=== PATIENT | female | born 1960 | race Caucasian/White ===

== ENCOUNTER 2017-02-05 07:58 | Inpatient (IN) | payer MEDICARE, MEDICAID ==
[2017-02-05] MEDS: Carbidopa/Levodopa 25-100 MG Tab PO SCH ×2 (13:40→18:24)
[2017-02-05] MEDS: oxyCODONE 5 MG Tab PO SCH ×2 (13:40→20:03)
--- NOTE | 2017-02-05 14:01 | PCM.HP ---
H&P History of Present Illness - General Date of Service: 02/05/17 Admit Problem/Dx: Admission Diagnosis/Problem Admission Diagnosis/Problem Knee joint replacement by other means - History of Present Illness Initial Comments - Free Text/Narative: Patient is a pleasant 56-year-old female status post right total knee revision on 02/02/2017 admitted to the facility for continued wound care occupational and physical therapy at which point she will go back to her own home. Her surgery was uncomplicated and she has no concerns regarding her status at this time. Her pain is well-controlled currently on oxycodone 10 mg roughly 3-4 times a day. Right Knee Pain Score (Numeric/FACES): 10 - Related Data Allergies/Adverse Reactions: Allergies Allergy/AdvReac Type Severity Reaction Status Date / Time gabapentin Allergy Slurred Verified 02/05/17 14:59 Speech Home Medications: Home Meds ALPRAZolam [Alprazolam] 1 mg PO BID PRN 02/05/17 [History] Biotin 5 mg PO DAILY 02/05/17 [History] Carbidopa/Levodopa [Sinemet 25-100 mg Tablet] 2 tab PO TID@08,1130,1630 [History] Celecoxib [CeleBREX] 200 mg PO BID 02/05/17 [History] Cholecalciferol (Vitamin D3) [Vitamin D3] 1,000 units PO DAILY 02/05/17 [History ] ClonazePAM [KlonoPIN] 0.75 mg PO BEDTIME 02/05/17 [History] Docusate Sodium/Sennosides [Senna Plus] 2 tab PO DAILY 02/05/17 [History] Furosemide [Lasix] 40 mg PO MOTUWETHFR@0900 02/05/17 [History] Lactose-Reduced Food/Fiber [Hstwbg-Khzn-Foyh Puree Blend] 1 dose PO TID PRN [History] Mirtazapine [Mirtazapine] 15 mg PO BEDTIME 02/05/17 [History] Multivitamin [Daily William] 1 tab PO DAILY 02/05/17 [History] Omeprazole 40 mg PO DAILY 02/05/17 [History] Rivaroxaban [Xarelto] 20 mg PO WITHDINNER 02/05/17 [History] Sennosides [Senna] 17.2 mg PO BEDTIME 02/05/17 [History] Sertraline [Zoloft] 200 mg PO DAILY 02/05/17 [History] oxyCODONE 5 - 10 mg PO Q2H PRN 02/05/17 [History] Past Medical History HEENT History: Reports: Hard of Hearing, Impaired Vision Respiratory History: Reports: SOB Gastrointestinal History: Reports: GERD Genitourinary History: Reports: Urinary Incontinence Musculoskeletal History: Reports: Arthritis, Back Pain, Chronic Neurological History: Reports: Headaches, Chronic, Parkinson's, TIA Psychiatric History: Reports: Anxiety, Depression, Suicidal Ideation Endocrine/Metabolic History: Reports: Obesity/BMI 30+ Hematologic History: Reports: Anticoagulation Therapy - Infectious Disease History Infectious Disease History: Reports: Chicken Pox, Measles - Past Surgical History Head Surgeries/Procedures: Reports: None HEENT Surgical History: Reports: Adenoidectomy, Oral Surgery, Tonsillectomy Respiratory Surgical History: Reports: None GI Surgical History: Reports: Cholecystectomy, Colonoscopy Female Surgical History: Reports: Breast Biopsy, Hysterectomy Neurological Surgical History: Reports: None Musculoskeletal Surgical History: Reports: Knee Replacement Social & Family History - Family History Family Medical History: Noncontributory - Tobacco Use Smoking Status *Q: Never Smoker Second Hand Smoke Exposure: No - Caffeine Use Caffeine Use: Reports: Coffee - Alcohol Use Days Per Week of Alcohol Use: 0 - Recreational Drug Use Recreational Drug Use: No H&P Review of Systems - Review of Systems: Review Of Systems: See Below General: Reports: No Symptoms HEENT: Reports: No Symptoms Pulmonary: Reports: No Symptoms Cardiovascular: Reports: No Symptoms Gastrointestinal: Reports: No Symptoms Genitourinary: Reports: No Symptoms Musculoskeletal: Reports: Joint Swelling Skin: Reports: No Symptoms Psychiatric: Reports: No Symptoms Neurological: Reports: No Symptoms Exam - Exam Exam: See Below - Vital Signs Vital Signs: Last Vital Signs Temp 99.2 F 02/05/17 11:58 Pulse 86 02/05/17 11:58 Resp 20 02/05/17 11:58 BP 135/68 02/05/17 11:58 Pulse Ox 95 02/05/17 11:58 Weight: 98.883 kg - Exam General: Alert, Oriented, Cooperative HEENT: Conjunctiva Clear, Mucosa Moist & [place] Neck: Supple, Trachea Midline, Full Range of Motion. No: Lymphadenopathy, JVD, Thyromegaly Lungs: Clear to Auscultation, Normal Respiratory Effort Cardiovascular: Regular Rate, Regular Rhythm, Normal S1, Normal S2 GI/Abdominal Exam: Normal Bowel Sounds, Soft, Non-Tender, No Distention Back Exam: Normal Inspection Extremities: Joint Swelling (Right joint swelling with vertical incision anterior knee with intact dressing and dry. No increased warmth or redness locally. Bilateral lower extremity trace edema slightly more on the right than the left but as expected. Negative Homans. Normal capillary refill. Normal sensation and strength.) Skin: Dry, Intact, Incision *Q Meaningful Use (ADM) - VTE *Q VTE Criteria *Q: - Stroke *Q Stroke Criteria *Q: - AMI *Q AMI Criteria *Q: - Problem List (1) S/P total knee arthroplasty SNOMED Code(s): 9011600901510, 4832290378337 ICD Code: Z96.659 - PRESENCE OF UNSPECIFIED ARTIFICIAL KNEE JOINT Status: Acute Current Visit: Yes Onset Date: 02/02/17 Qualifiers: Laterality: right Qualified Code(s): Z96.651 - Presence of right artificial knee joint Problem List Initiated/Reviewed/Updated: Yes Orders Last 24hrs: Active Orders 24 hr Category Date Time Status Admission Status [Patient Status] [ADT] Routine ADT 02/05/17 10:17 Active Height and Weight [RC] .qMon Care 02/05/17 13:13 Active Oxygen Therapy [RC] PRN Care 02/05/17 13:13 Active Vital Signs [RC] PER UNIT ROUTINE Care 02/05/17 13:13 Active OT Evaluation and Treatment [CONS] Routine Cons 02/05/17 10:00 Active PT Evaluation and Treatment [CONS] Routine Cons 02/05/17 10:00 Active Carbidopa/Levodopa [Sinemet 25-100 mg] Med 02/05/17 14:00 Active 2 tab PO TID@0800,1130,1630 oxyCODONE Med 02/05/17 14:00 Active 10 mg PO Q6H Resuscitation Status Routine Resus Stat 02/05/17 13:13 Ordered Medication Orders Carbidopa/Levodopa (Sinemet 25-100 Mg) 2 tab PO TID@0800,1130,1630 [facility] Last Admin: 02/05/17 13:40 Dose: 2 tab Oxycodone HCl (Oxycodone) 10 mg PO Q6H [facility] Last Admin: 02/05/17 13:40 Dose: 10 mg Assessment/Plan Comment:: We will admit for swing bed status for continued physical therapy occupational therapy wound care assessment strengthening and discharge planning. Chronic conditions will be controlled with current home medications and pain control with new Rx of oxycodone to be titrated to minimum dose required postoperatively. Bowel regimen to prevent opioid-induced constipation.
[2017-02-05] MEDS: Rivaroxaban 10 MG Tab PO SCH (18:24)
[2017-02-05] MEDS: Celecoxib 200 MG Cap PO SCH (21:01)
[2017-02-05] MEDS: ClonazePAM 0.5 MG Tab PO SCH (21:01)
[2017-02-05] MEDS: Sennosides 8.6 MG Tab PO SCH (21:02)
[2017-02-05] MEDS: Mirtazapine 15 MG Tab PO SCH (21:02)
[2017-02-06] MEDS: oxyCODONE 5 MG Tab PO SCH ×4 (02:19→20:28)
[2017-02-06] MEDS: Carbidopa/Levodopa 25-100 MG Tab PO SCH ×3 (09:02→16:47)
[2017-02-06] MEDS: Biotin 5 MG Cap PO SCH (09:02)
[2017-02-06] MEDS: Cholecalciferol (Vitamin D3) 1,000 Unit Tab PO SCH (09:02)
[2017-02-06] MEDS: Multivitamin Tab PO SCH (09:02)
[2017-02-06] MEDS: Sertraline 100 MG Tab PO SCH (09:02)
[2017-02-06] MEDS: Celecoxib 200 MG Cap PO SCH ×2 (09:02→20:53)
--- NOTE | 2017-02-06 11:16 | PCM.PN ---
- General Info Date of Service: 02/06/17 Admission Dx/Problem (Free Text): Tells me she is feeling much better today compared to yesterday with regards to moving and getting around. She is working with physical therapy and doing well. She does continue to have the right lower extremity tightness and pain. She is beginning ice therapy to the knee and denies any numbness tingling or decreased strength comparing the right left. She denies any headache neck pain sore throat nausea chest pain or pressure palpitations shortness of breath dyspnea on exertion cough abdominal pain pelvic pain dysuria flank pain constipation or diarrhea. Functional Status: Reports: Pain Controlled, Tolerating Diet, Ambulating, Urinating - Review of Systems Systems Review Comment:: For pertinent positives and negatives please see history of present illness - Patient Data Vitals - Most Recent: Last Vital Signs Vital Signs - 24 hr 02/05/17 02/05/17 02/06/17 11:58 19:52 00:00 Temperature [ 99.2 F 99.7 F 99.2 F Oral] Pulse, 86 Peripheral [ Left Pulse Oximetry] Pulse, 89 85 Peripheral [ Right Pulse Oximetry] Respiratory 20 18 18 Rate Blood Pressure 135/68 125/62 123/75 [Right Arm] O2 Sat by Pulse 95 91 L 92 L Oximetry 02/06/17 02/06/17 04:00 09:15 Temperature [ 99.3 F 98.1 F Oral] Pulse, Peripheral [ Left Pulse Oximetry] Pulse, 83 95 Peripheral [ Right Pulse Oximetry] Respiratory 18 21 H Rate Blood Pressure 125/75 139/80 [Right Arm] O2 Sat by Pulse 92 L 96 Oximetry Weight - Most Recent: 98.883 kg Med Orders - Current: Current Medications Biotin (Meribin) 5 mg PO DAILY [facility] Last Admin: 02/06/17 09:02 Dose: 5 mg Carbidopa/Levodopa (Sinemet 25-100 Mg) 2 tab PO TID@0800,1130,1630 [facility] Last Admin: 02/06/17 09:02 Dose: 2 tab Celecoxib (Celebrex) 200 mg PO BID [facility] Last Admin: 02/06/17 09:02 Dose: 200 mg Cholecalciferol (Vitamin D3) 1,000 units PO DAILY [facility] Last Admin: 02/06/17 09:02 Dose: 1,000 units Clonazepam (Klonopin) 0.75 mg PO BEDTIME [facility] Last Admin: 02/05/17 21:01 Dose: 0.75 mg Furosemide (Lasix) 40 mg PO MOTUWETHFR@0900 [facility] Mirtazapine (Remeron) 15 mg PO BEDTIME [facility] Last Admin: 02/05/17 21:02 Dose: 15 mg Multivitamins/Minerals/Vitamin C (Tab-A-William) 1 tab PO DAILY [facility] Last Admin: 02/06/17 09:02 Dose: 1 tab Oxycodone HCl (Oxycodone) 10 mg PO Q6H [facility] Last Admin: 02/06/17 08:57 Dose: 10 mg Rivaroxaban (Xarelto) 20 mg PO WITHDINNER [facility] Last Admin: 02/05/17 18:24 Dose: 20 mg Senna (Senna) 17.2 mg PO BEDTIME [facility] Last Admin: 02/05/17 21:02 Dose: 17.2 mg Senna/Docusate Sodium (Senna Plus) 2 tab PO DAILY [facility] Last Admin: 02/06/17 09:02 Dose: 2 tab Sertraline HCl (Zoloft) 200 mg PO DAILY [facility] Last Admin: 02/06/17 09:02 Dose: 200 mg - Exam Physical Findings Comments:: General: Alert, Oriented, Cooperative HEENT: Conjunctiva Clear, Mucosa Moist & [place] Neck: Supple, Trachea Midline, Full Range of Motion. No: Lymphadenopathy, JVD Lungs: Clear to Auscultation, Normal Respiratory Effort Cardiovascular: Regular Rate, Regular Rhythm, Normal S1, Normal S2 GI/Abdominal Exam: Normal Bowel Sounds, Soft, Non-Tender, No Distention Back Exam: Normal Inspection Extremities: Joint Swelling (Right joint swelling with vertical incision anterior knee with intact dressing and dry. increased warmth noted to the thigh , knee and calf when compared to the left. Bilateral lower extremity now 1-2+ on the left with tightness to thigh. Trace on the left and no tightness to the thigh. Negative Homans. Normal capillary refill. Normal sensation and strength. ) Skin: Dry, Intact, Incision - Problem List & Annotations (1) S/P total knee arthroplasty SNOMED Code(s): 8023254833579, 2739349749367 Code(s): Z96.659 - PRESENCE OF UNSPECIFIED ARTIFICIAL KNEE JOINT Status: Acute Current Visit: Yes Onset Date: 02/02/17 Qualifiers: Laterality: right Qualified Code(s): Z96.651 - Presence of right artificial knee joint (2) Swelling of right lower extremity SNOMED Code(s): 938266199 Code(s): M79.89 - OTHER SPECIFIED SOFT TISSUE DISORDERS Status: Acute Current Visit: Yes - Problem List Review Problem List Initiated/Reviewed/Updated: Yes - My Orders Last 24 Hours: My Active Orders 02/08/17 09:00 Furosemide [Lasix] 40 mg PO MOTUWETHFR@0900 02/05/17 10:17 Admission Status [Patient Status] [ADT] Routine 02/05/17 13:13 Height and Weight [RC] .qMon Oxygen Therapy [RC] PRN Resuscitation Status Routine 02/05/17 14:00 Carbidopa/Levodopa [Sinemet 25-100 mg] 2 tab PO TID@0800,1130,1630 oxyCODONE 10 mg PO Q6H 02/05/17 18:00 Rivaroxaban [Xarelto] 20 mg PO WITHDINNER Ice Pack [Ice Therapy] [OM.PC] Routine 02/05/17 21:00 Celecoxib [CeleBREX] 200 mg PO BID ClonazePAM [KlonoPIN] 0.75 mg PO BEDTIME Mirtazapine [Remeron] 15 mg PO BEDTIME Sennosides [Senna] 17.2 mg PO BEDTIME 02/06/17 09:00 Biotin [Meribin] 5 mg PO DAILY Cholecalciferol (Vitamin D3) [Vitamin D3] 1,000 units PO DAILY Docusate Sodium/Sennosides [Senna Plus] 2 tab PO DAILY Multivitamins [Tab-A-William] 1 tab PO DAILY Sertraline [Zoloft] 200 mg PO DAILY 02/06/17 11:07 IS (RT) [RT Incentive Spirometry] [RC] Q2HWA 02/06/17 11:09 Vital Signs [RC] Q4H - Assessment Assessment:: Please see above - Plan Plan:: We'll continue to monitor temps every 4 hours vitals, continue to observe wound. Will go ahead and start her on incentive spirometry as well. She is on DVT prophylaxis appropriately status post right knee revision. however with increased warmth and leg swelling i will get a venous duplex to rule out active DVT. continue swing bed status. continued physical therapy occupational therapy wound care assessment strengthening and discharge planning. Chronic conditions will continue to be controlled with current home medications and pain control with new Rx of oxycodone to be titrated to minimum dose required postoperatively. Bowel regimen on board to prevent opioid-induced constipation.
[2017-02-06] MEDS: Rivaroxaban 10 MG Tab PO SCH (18:03)
[2017-02-06] MEDS: ClonazePAM 0.5 MG Tab PO SCH (20:53)
[2017-02-06] MEDS: Sennosides 8.6 MG Tab PO SCH (20:57)
[2017-02-06] MEDS: Mirtazapine 15 MG Tab PO SCH (20:58)
[2017-02-07] MEDS: oxyCODONE 5 MG Tab PO SCH ×4 (01:51→19:41)
[2017-02-07] MEDS: Biotin 5 MG Cap PO SCH (08:42)
[2017-02-07] MEDS: Carbidopa/Levodopa 25-100 MG Tab PO SCH ×3 (08:42→17:47)
[2017-02-07] MEDS: Celecoxib 200 MG Cap PO SCH ×2 (08:42→20:37)
[2017-02-07] MEDS: Multivitamin Tab PO SCH (08:44)
[2017-02-07] MEDS: Cholecalciferol (Vitamin D3) 1,000 Unit Tab PO SCH (08:44)
[2017-02-07] MEDS: Sertraline 100 MG Tab PO SCH (08:45)
--- NOTE | 2017-02-07 12:16 | PCM.SN ---
- Free Text/Narrative Note: Patient remained afebrile. Venous ultrasound of the right lower extremity was negative for DVT.
[2017-02-07] MEDS: Rivaroxaban 10 MG Tab PO SCH (17:50)
[2017-02-07] MEDS: ClonazePAM 0.5 MG Tab PO SCH (20:37)
[2017-02-07] MEDS: Mirtazapine 15 MG Tab PO SCH (20:38)
[2017-02-08] MEDS: oxyCODONE 5 MG Tab PO SCH ×4 (01:53→20:26)
[2017-02-08] MEDS: Carbidopa/Levodopa 25-100 MG Tab PO SCH ×3 (08:39→16:29)
[2017-02-08] MEDS: Celecoxib 200 MG Cap PO SCH ×2 (08:40→20:30)
[2017-02-08] MEDS: Cholecalciferol (Vitamin D3) 1,000 Unit Tab PO SCH (08:41)
[2017-02-08] MEDS: Furosemide 40 MG Tab PO SCH (08:41)
[2017-02-08] MEDS: Biotin 5 MG Cap PO SCH (08:41)
[2017-02-08] MEDS: Multivitamin Tab PO SCH (08:41)
[2017-02-08] MEDS: Sertraline 100 MG Tab PO SCH (08:42)
[2017-02-08] MEDS: Rivaroxaban 10 MG Tab PO SCH (18:17)
[2017-02-08] MEDS: ClonazePAM 0.5 MG Tab PO SCH (20:31)
[2017-02-08] MEDS: Mirtazapine 15 MG Tab PO SCH (20:31)
[2017-02-08] MEDS: Sennosides 8.6 MG Tab PO SCH (20:33)
[2017-02-09] MEDS: oxyCODONE 5 MG Tab PO SCH ×3 (02:23→14:02)
[2017-02-09] MEDS: Carbidopa/Levodopa 25-100 MG Tab PO SCH ×3 (09:12→16:28)
[2017-02-09] MEDS: Furosemide 40 MG Tab PO SCH (09:13)
[2017-02-09] MEDS: Celecoxib 200 MG Cap PO SCH ×2 (09:13→21:25)
[2017-02-09] MEDS: Multivitamin Tab PO SCH (09:14)
[2017-02-09] MEDS: Biotin 5 MG Cap PO SCH (09:14)
[2017-02-09] MEDS: Sertraline 100 MG Tab PO SCH (09:15)
[2017-02-09] MEDS: Cholecalciferol (Vitamin D3) 1,000 Unit Tab PO SCH (09:15)
--- NOTE | 2017-02-09 10:23 | US ---
INDICATION: Pain and increased warmth in leg. Question DVT. DUPLEX ULTRASOUND, RIGHT LOWER EXTREMITY VEINS: Utilizing 2-D real time, duplex Doppler spectral analysis, and color flow imaging, examination of the right lower extremity veins was obtained with difficulty due to patient's condition. Compression was normal. Blood flow was seen, except where the veins were not visualized, such as the peroneal vein and the lower two-thirds of the anterior tibial vein. No evidence of deep venous thrombosis was identified. The patient was unable to cooperate with valvular competence evaluation. IMPRESSION: No evidence of deep venous thrombosis, as visualized. MTDD
--- NOTE | 2017-02-09 10:29 | CR ---
INDICATION: Deformed, pain right leg. RIGHT KNEE: Three images, two frontal and one lateral, of the right knee were obtained 02/08/2017, and compared with 02/04/2017, revealing a TKA which remains in good position and alignment without a definite complicating process identified. Apparent post-surgical changes present on the previous examination , have largely resolved. MTDD
--- NOTE | 2017-02-09 10:30 | CR ---
INDICATION: Deformed, pain right leg. RIGHT FEMUR: Seven images of the right femur in frontal and lateral projections revealed a TKA, which remains in good position and alignment without a definite complicating process identified. No focal bone or joint abnormality was suggested. Bone density appeared to be normal. IMPRESSION: Satisfactory appearance post TKA right femur. MTDD
--- NOTE | 2017-02-09 10:31 | CR ---
INDICATION: Deformed, pain right leg. RIGHT TIBIA AND FIBULA: Frontal and lateral views of the right tibia and fibula were obtained 02/08/2017, and revealed femoral portion of the TKA to be in good position and alignment without a complicating process identified. No definite bone or joint abnormality was identified. MTDD
[2017-02-09] MEDS: Rivaroxaban 10 MG Tab PO SCH (17:07)
[2017-02-09] MEDS: Acetaminophen/oxyCODONE 325-5 MG Tab PO SCH (20:19)
[2017-02-09] MEDS: Sennosides 8.6 MG Tab PO SCH ×2 (21:22→21:26)
[2017-02-09] MEDS: Mirtazapine 15 MG Tab PO SCH (21:23)
[2017-02-09] MEDS: ClonazePAM 0.5 MG Tab PO SCH (21:24)
[2017-02-10] MEDS: Acetaminophen/oxyCODONE 325-5 MG Tab PO SCH ×4 (02:12→20:43)
[2017-02-10] MEDS: Multivitamin Tab PO SCH (08:32)
[2017-02-10] MEDS: Furosemide 40 MG Tab PO SCH (08:32)
[2017-02-10] MEDS: Biotin 5 MG Cap PO SCH (08:32)
[2017-02-10] MEDS: Celecoxib 200 MG Cap PO SCH ×2 (08:32→20:44)
[2017-02-10] MEDS: Cholecalciferol (Vitamin D3) 1,000 Unit Tab PO SCH (08:32)
[2017-02-10] MEDS: Sertraline 100 MG Tab PO SCH (08:32)
[2017-02-10] MEDS: Carbidopa/Levodopa 25-100 MG Tab PO SCH ×3 (08:33→16:45)
[2017-02-10] MEDS: Rivaroxaban 10 MG Tab PO SCH (18:56)
[2017-02-10] MEDS: ClonazePAM 0.5 MG Tab PO SCH (20:44)
[2017-02-10] MEDS: Mirtazapine 15 MG Tab PO SCH (20:45)
[2017-02-10] MEDS: Sennosides 8.6 MG Tab PO SCH (20:47)
[2017-02-11] MEDS: Acetaminophen/oxyCODONE 325-5 MG Tab PO SCH ×4 (02:30→20:46)
[2017-02-11] MEDS: Carbidopa/Levodopa 25-100 MG Tab PO SCH ×3 (07:59→16:32)
[2017-02-11] MEDS: Biotin 5 MG Cap PO SCH (08:00)
[2017-02-11] MEDS: Furosemide 40 MG Tab PO SCH (08:00)
[2017-02-11] MEDS: Celecoxib 200 MG Cap PO SCH ×2 (08:00→20:35)
[2017-02-11] MEDS: Cholecalciferol (Vitamin D3) 1,000 Unit Tab PO SCH (08:00)
[2017-02-11] MEDS: Sertraline 100 MG Tab PO SCH (08:00)
[2017-02-11] MEDS: Multivitamin Tab PO SCH (08:00)
[2017-02-11] MEDS: Rivaroxaban 10 MG Tab PO SCH (17:38)
[2017-02-11] MEDS: Mirtazapine 15 MG Tab PO SCH (20:35)
[2017-02-11] MEDS: Sennosides 8.6 MG Tab PO SCH (20:37)
[2017-02-11] MEDS: ClonazePAM 0.5 MG Tab PO SCH (20:47)
[2017-02-12] MEDS: Acetaminophen/oxyCODONE 325-5 MG Tab PO SCH ×4 (02:08→20:19)
[2017-02-12] MEDS: Carbidopa/Levodopa 25-100 MG Tab PO SCH ×3 (08:16→17:07)
[2017-02-12] MEDS: Celecoxib 200 MG Cap PO SCH ×2 (08:16→20:20)
[2017-02-12] MEDS: Furosemide 40 MG Tab PO SCH (08:16)
[2017-02-12] MEDS: Biotin 5 MG Cap PO SCH (08:17)
[2017-02-12] MEDS: Multivitamin Tab PO SCH (08:17)
[2017-02-12] MEDS: Cholecalciferol (Vitamin D3) 1,000 Unit Tab PO SCH (08:18)
[2017-02-12] MEDS: Sertraline 100 MG Tab PO SCH (08:18)
[2017-02-12] MEDS: Rivaroxaban 10 MG Tab PO SCH (17:07)
[2017-02-12] MEDS: ClonazePAM 0.5 MG Tab PO SCH (20:20)
[2017-02-12] MEDS: Mirtazapine 15 MG Tab PO SCH (20:21)
[2017-02-12] MEDS: Sennosides 8.6 MG Tab PO SCH (20:22)
[2017-02-13] MEDS: Acetaminophen/oxyCODONE 325-5 MG Tab PO SCH ×4 (01:46→19:35)
[2017-02-13] MEDS: Carbidopa/Levodopa 25-100 MG Tab PO SCH ×3 (08:53→18:49)
[2017-02-13] MEDS: Celecoxib 200 MG Cap PO SCH ×2 (08:54→20:00)
[2017-02-13] MEDS: Biotin 5 MG Cap PO SCH (08:55)
[2017-02-13] MEDS: Multivitamin Tab PO SCH (08:56)
[2017-02-13] MEDS: Sertraline 100 MG Tab PO SCH (08:57)
[2017-02-13] MEDS: Cholecalciferol (Vitamin D3) 1,000 Unit Tab PO SCH (08:57)
[2017-02-13] MEDS ORDERED: Aluminum Hydroxide/Magnesium Hydroxide Susp 30 ML Cup PO PRN (12:30)
[2017-02-13] MEDS: Rivaroxaban 10 MG Tab PO SCH (19:28)
[2017-02-13] MEDS: Mirtazapine 15 MG Tab PO SCH (20:00)
[2017-02-13] MEDS: Sennosides 8.6 MG Tab PO SCH (20:03)
[2017-02-13] MEDS: ClonazePAM 0.5 MG Tab PO SCH ×2 (20:11→20:12)
[2017-02-14] MEDS: Acetaminophen/oxyCODONE 325-5 MG Tab PO SCH ×4 (01:57→20:03)
[2017-02-14] MEDS: Carbidopa/Levodopa 25-100 MG Tab PO SCH ×3 (09:02→16:25)
[2017-02-14] MEDS: Multivitamin Tab PO SCH (09:03)
[2017-02-14] MEDS: Celecoxib 200 MG Cap PO SCH ×2 (09:03→20:07)
[2017-02-14] MEDS: Sertraline 100 MG Tab PO SCH (09:04)
[2017-02-14] MEDS: Biotin 5 MG Cap PO SCH (09:04)
[2017-02-14] MEDS: Cholecalciferol (Vitamin D3) 1,000 Unit Tab PO SCH (09:04)
--- NOTE | 2017-02-14 11:53 | PCM.PN ---
- General Info Date of Service: 02/14/17 Subjective Update: Pt still having some tenderness and swelling of the right knee and medial leg. DVT eval prior was negative and comparative xrays of hardware normal. wbc normal but crp elevated. low grade temps have resolved. swelling overall of the leg improved. PT states things are progressing slowly. Functional Status: Reports: Tolerating Diet, Ambulating, Urinating - Review of Systems Systems Review Comment:: see subjective. - Patient Data Vitals - Most Recent: Last Vital Signs Temp 98.2 F 02/14/17 08:00 Pulse 81 02/14/17 08:00 Resp 20 02/14/17 08:00 BP 112/66 02/14/17 08:00 Pulse Ox 96 02/14/17 08:00 Weight - Most Recent: 96.434 kg Lab Results Last 24 Hours: Laboratory Results - last 24 hr 02/13/17 02/13/17 02/13/17 Range/Units 11:47 11:47 11:47 WBC 7.7 (4.5-12.0) X10-3/uL RBC 3.92 (3.23-5.20) x10(6)uL Hgb 11.6 (11.5-15.5) g/dL Hct 34.2 (30.0-51.3) % MCV 87.3 (80-96) fL MCH 29.5 (27.7-33.6) pg MCHC 33.8 (32.2-35.4) g/dL RDW 14.2 (11.5-15.5) % Plt Count 335 (125-369) X10(3)uL MPV 7.6 (7.4-10.4) fL Neut % (Auto) 69.6 (46-82) % Lymph % (Auto) 14.1 (13-37) % [place] % (Auto) 8.5 (4-12) % Eos % (Auto) 7 H (1.0-5.0) % Baso % (Auto) 1 (0-2) % Neut # (Auto) 5.3 (1.6-8.3) # Lymph # (Auto) 1.1 (0.6-5.0) # [place] # (Auto) 0.7 (0.0-1.3) # Eos # (Auto) 0.5 (0.0-0.8) # Baso # (Auto) 0.1 (0.0-0.2) # Sodium 139 (135-145) mmol/L Potassium 4.4 (3.5-5.3) mmol/L Chloride 100 (100-110) mmol/L Carbon Dioxide 28 (21-32) mmol/L BUN 17 (7-18) mg/dL Creatinine 1.1 H (0.55-1.02) mg/dL Est Cr Clr Drug Dosing 48.36 mL/min Estimated GFR (MDRD) 52 L (>60) BUN/Creatinine Ratio 15.5 (9-20) Glucose 109 (80-116) mg/dL Calcium 9.4 (8.6-10.2) mg/dL Total Bilirubin 0.6 (0.1-1.3) mg/dL AST 24 D (5-25) IU/L ALT 11 L D (12-36) U/L Alkaline Phosphatase 125 H (56-112) IU/L C-Reactive Protein 5.9 H* (0.5-0.9) mg/dL Total Protein 7.4 (6.0-8.0) g/dL Albumin 3.1 L (3.5-5.2) g/dL Globulin 4.3 g/dL Albumin/Globulin Ratio 0.7 Med Orders - Current: Current Medications Al Hydroxide/Mg Hydroxide (Mag-Al Susp) 30 ml PO Q2H PRN PRN Reason: Heartburn Last Admin: 02/13/17 13:08 Dose: 30 ml Biotin (Meribin) 5 mg PO DAILY [facility] Last Admin: 02/14/17 09:04 Dose: 5 mg Carbidopa/Levodopa (Sinemet 25-100 Mg) 2 tab PO TID@0800,1130,1630 [facility] Last Admin: 02/14/17 09:02 Dose: 2 tab Celecoxib (Celebrex) 200 mg PO BID [facility] Last Admin: 02/14/17 09:03 Dose: 200 mg Cholecalciferol (Vitamin D3) 1,000 units PO DAILY [facility] Last Admin: 02/14/17 09:04 Dose: 1,000 units Clonazepam (Klonopin) 0.75 mg PO BEDTIME [facility] Last Admin: 02/13/17 20:12 Dose: 0.75 mg Doxycycline Monohydrate (Vibramycin) 100 mg PO BID [facility] Furosemide (Lasix) 40 mg PO MOTUWETHFR@0900 [facility] Last Admin: 02/12/17 08:16 Dose: 40 mg Mirtazapine (Remeron) 15 mg PO BEDTIME [facility] Last Admin: 02/13/17 20:00 Dose: 15 mg Multivitamins/Minerals/Vitamin C (Tab-A-William) 1 tab PO DAILY [facility] Last Admin: 02/14/17 09:03 Dose: 1 tab Oxycodone/Acetaminophen (Percocet 325-5 Mg) 2 tab PO Q6H [facility] Last Admin: 02/14/17 09:00 Dose: 2 tab Rivaroxaban (Xarelto) 20 mg PO WITHDINNER [facility] Last Admin: 02/13/17 19:28 Dose: 20 mg Senna (Senna) 17.2 mg PO BEDTIME [facility] Last Admin: 02/13/17 20:03 Dose: 17.2 mg Senna/Docusate Sodium (Senna Plus) 2 tab PO DAILY [facility] Last Admin: 02/14/17 09:03 Dose: 2 tab Sertraline HCl (Zoloft) 200 mg PO DAILY [facility] Last Admin: 02/14/17 09:04 Dose: 200 mg Discontinued Medications Oxycodone HCl (Oxycodone) 10 mg PO Q6H [facility] Last Admin: 02/09/17 14:02 Dose: 10 mg - Exam Extremities: Other (right knee and leg inspected. increased warmth and swelling of the anterior right knee prepatella bursal, no pain on joint ROM. No drainage from incision. warmth and mild erythema have increased down the medial leg. non tender. ) - Problem List & Annotations (1) Bursitis of lower extremity SNOMED Code(s): 709315292 Code(s): M71.9 - BURSOPATHY, UNSPECIFIED Status: Acute Annotation/Comment :: left prepatellar/and medial lower leg cellulitis. (2) S/P total knee arthroplasty SNOMED Code(s): 5110321560130, 9223039698179 Code(s): Z96.659 - PRESENCE OF UNSPECIFIED ARTIFICIAL KNEE JOINT Status: Acute Onset Date: 02/02/17 Qualifiers: Laterality: right Qualified Code(s): Z96.651 - Presence of right artificial knee joint (3) Swelling of right lower extremity SNOMED Code(s): 574365122 Code(s): M79.89 - OTHER SPECIFIED SOFT TISSUE DISORDERS Status: Acute - Problem List Review Problem List Initiated/Reviewed/Updated: Yes - My Orders Last 24 Hours: My Active Orders 02/13/17 12:30 Alum Hydroxide/Mag Hydroxide [Mag-Al Susp] 30 ml PO Q2H PRN 02/14/17 12:00 Doxycycline [Vibramycin] 100 mg PO BID - Assessment Assessment:: Please see above - Plan Plan:: We'll continue to monitor temps every 4 hours vitals, continue to observe wound. start doxycycline. she has appointment with her orthopedic surgeon tomorrow. family taking her. hold off on PT today.
[2017-02-14] MEDS: Doxycycline 100 MG Tab PO SCH ×2 (12:57→20:16)
[2017-02-14] MEDS: Rivaroxaban 10 MG Tab PO SCH (17:50)
[2017-02-14] MEDS: ClonazePAM 0.5 MG Tab PO SCH (20:04)
[2017-02-14] MEDS: Sennosides 8.6 MG Tab PO SCH (20:08)
[2017-02-14] MEDS: Mirtazapine 15 MG Tab PO SCH (20:15)
[2017-02-15] MEDS: Acetaminophen/oxyCODONE 325-5 MG Tab PO SCH ×3 (01:39→15:07)
[2017-02-15] MEDS: Celecoxib 200 MG Cap PO SCH (08:36)
[2017-02-15] MEDS: Carbidopa/Levodopa 25-100 MG Tab PO SCH ×2 (08:36→11:34)
[2017-02-15] MEDS: Cholecalciferol (Vitamin D3) 1,000 Unit Tab PO SCH (08:38)
[2017-02-15] MEDS: Multivitamin Tab PO SCH (08:38)
[2017-02-15] MEDS: Doxycycline 100 MG Tab PO SCH (08:39)
[2017-02-15] MEDS: Biotin 5 MG Cap PO SCH (08:39)
[2017-02-15] MEDS: Sertraline 100 MG Tab PO SCH (08:39)
[2017-02-15] MEDS: Furosemide 40 MG Tab PO SCH (11:01)
--- NOTE | 2017-02-16 07:54 | PCM.DCSUM1 ---
Discharge Summary - Hospital Course HPI Initial Comments: pt was admitted to swing bed for right knee pt/Ot for rom, strength, ambulation and adls after revision. - Discharge Data Discharge Date: 02/15/17 Discharge Disposition: DC/Tfer to Acute Hospital 02 Condition: Good - Discharge Diagnosis/Problem(s) (1) Post-operative complication SNOMED Code(s): 816238444 ICD Code: T81.9XXA - UNSPECIFIED COMPLICATION OF PROCEDURE, INITIAL ENCOUNTER Status: Acute Priority: High Qualifiers: Surgical complication system/body Area: musculoskeletal system Procedure type: musculoskeletal (2) Bursitis of lower extremity SNOMED Code(s): 775689690 ICD Code: M71.9 - BURSOPATHY, UNSPECIFIED Status: Acute Problem Details: left prepatellar/and medial lower leg cellulitis. (3) S/P total knee arthroplasty SNOMED Code(s): 0815463703741, 3964659003077 ICD Code: Z96.659 - PRESENCE OF UNSPECIFIED ARTIFICIAL KNEE JOINT Status: Acute Onset Date: 02/02/17 Qualifiers: Laterality: right Qualified Code(s): Z96.651 - Presence of right artificial knee joint (4) Swelling of right lower extremity SNOMED Code(s): 560473602 ICD Code: M79.89 - OTHER SPECIFIED SOFT TISSUE DISORDERS Status: Acute - Patient Summary/Data Consults: Consultations 02/05/17 10:00 OT Evaluation and Treatment [CONS] Routine Please Evaluate and Treat. OT Reason for Consult: ADL's This query below is only for informational purposes and is not editable. PT Evaluation and Treatment [CONS] Routine Please Evaluate and Treat. PT Reason for Consult: Ambulation This query below is only for informational purposes and is not editable. - Discharge Plan Home Medications: Home Meds ALPRAZolam [Alprazolam] 1 mg PO BID PRN 02/05/17 [History] Biotin 5 mg PO DAILY 02/05/17 [History] Carbidopa/Levodopa [Sinemet 25-100 mg Tablet] 2 tab PO TID@08,1130,1630 [History] Celecoxib [CeleBREX] 200 mg PO BID 02/05/17 [History] Cholecalciferol (Vitamin D3) [Vitamin D3] 1,000 units PO DAILY 02/05/17 [History ] ClonazePAM [KlonoPIN] 0.75 mg PO BEDTIME 02/05/17 [History] Docusate Sodium/Sennosides [Senna Plus] 2 tab PO DAILY 02/05/17 [History] Furosemide [Lasix] 40 mg PO MOTUWETHFR@0900 02/05/17 [History] Lactose-Reduced Food/Fiber [Qnklzf-Aitt-Wlog Puree Blend] 1 dose PO TID PRN [History] Mirtazapine [Mirtazapine] 15 mg PO BEDTIME 02/05/17 [History] Multivitamin [Daily William] 1 tab PO DAILY 02/05/17 [History] Omeprazole 40 mg PO DAILY 02/05/17 [History] Rivaroxaban [Xarelto] 20 mg PO WITHDINNER 02/05/17 [History] Sennosides [Senna] 17.2 mg PO BEDTIME 02/05/17 [History] Sertraline [Zoloft] 200 mg PO DAILY 02/05/17 [History] oxyCODONE 5 - 10 mg PO Q2H PRN 02/05/17 [History] Patient Handouts: Total Knee Replacement, Care After, Fall Prevention in Hospitals, Adult, Venous Thromboembolism Prevention - Discharge Summary/Plan Comment DC Time >30 min.: No Discharge Summary/Plan Comment: Pt was seen in [place] today by her orthopedic surgeon and diagnosis of patella hardware dislocation diagnosed. Admitted her to [facility] for further management. - General Info Subjective Update: Pt was not seen prior to her appt in [place]. - Patient Data Vitals - Most Recent: Last Vital Signs Temp 99.0 F 02/15/17 08:00 Pulse 87 02/15/17 08:00 Resp 20 02/15/17 08:00 BP 126/72 02/15/17 08:00 Pulse Ox 93 L 02/15/17 08:00 Weight - Most Recent: 96.434 kg Med Orders - Current: Current Medications Discontinued Medications Al Hydroxide/Mg Hydroxide (Mag-Al Susp) 30 ml PO Q2H PRN PRN Reason: Heartburn Last Admin: 02/13/17 13:08 Dose: 30 ml Biotin (Meribin) 5 mg PO DAILY THERESA Last Admin: 02/15/17 08:39 Dose: 5 mg Carbidopa/Levodopa (Sinemet 25-100 Mg) 2 tab PO TID@0800,1130,1630 [facility] Last Admin: 02/15/17 11:34 Dose: 2 tab Celecoxib (Celebrex) 200 mg PO BID [facility] Last Admin: 02/15/17 08:36 Dose: 200 mg Cholecalciferol (Vitamin D3) 1,000 units PO DAILY [facility] Last Admin: 02/15/17 08:38 Dose: 1,000 units Clonazepam (Klonopin) 0.75 mg PO BEDTIME [facility] Last Admin: 02/14/17 20:04 Dose: 0.75 mg Doxycycline Monohydrate (Vibramycin) 100 mg PO BID [facility] Last Admin: 02/15/17 08:39 Dose: 100 mg Furosemide (Lasix) 40 mg PO MOTUWETHFR@0900 [facility] Last Admin: 02/15/17 11:01 Dose: Not Given Mirtazapine (Remeron) 15 mg PO BEDTIME [facility] Last Admin: 02/14/17 20:15 Dose: 15 mg Multivitamins/Minerals/Vitamin C (Tab-A-William) 1 tab PO DAILY [facility] Last Admin: 02/15/17 08:38 Dose: 1 tab Oxycodone HCl (Oxycodone) 10 mg PO Q6H [facility] Last Admin: 02/09/17 14:02 Dose: 10 mg Oxycodone/Acetaminophen (Percocet 325-5 Mg) 2 tab PO Q6H [facility] Last Admin: 02/15/17 15:07 Dose: 2 tab Rivaroxaban (Xarelto) 20 mg PO WITHDINNER [facility] Last Admin: 02/14/17 17:50 Dose: 20 mg Senna (Senna) 17.2 mg PO BEDTIME [facility] Last Admin: 02/14/17 20:08 Dose: 17.2 mg Senna/Docusate Sodium (Senna Plus) 2 tab PO DAILY [facility] Last Admin: 02/15/17 09:10 Dose: 2 tab Sertraline HCl (Zoloft) 200 mg PO DAILY [facility] Last Admin: 02/15/17 08:39 Dose: 200 mg *Q Meaningful Use (DIS) - VTE *Q VTE Criteria *Q: - Stroke *Q Stroke Criteria *Q: - AMI *Q AMI Criteria *Q:
== END 2017-02-15 15:05 | DRG 560 ==
LOC: FB.MS 10:11
PROVIDERS: ADMIT Family Medicine; ATTEND Family Medicine
DX: Z47.1 Aftercare following joint replacement surgery (principal); M96.89 Other intraoperative and postprocedural complications and disorders of the musculoskeletal system; T84.022A Instability of internal right knee prosthesis, initial encounter; Z98.890 Other specified postprocedural states; Z96.651 Presence of right artificial knee joint; G20 Parkinson's disease; M19.90 Unspecified osteoarthritis, unspecified site; M54.9 Dorsalgia, unspecified; G89.29 Other chronic pain; Z86.73 Personal history of transient ischemic attack (TIA), and cerebral infarction without residual deficits; F41.9 Anxiety disorder, unspecified; F32.9 Major depressive disorder, single episode, unspecified; M79.89 Other specified soft tissue disorders; M71.9 Bursopathy, unspecified; Y83.8 Other surgical procedures as the cause of abnormal reaction of the patient, or of later complication, without mention of misadventure at the time of the procedure; Y79.2 Prosthetic and other implants, materials and accessory orthopedic devices associated with adverse incidents; Y92.239 Unspecified place in hospital as the place of occurrence of the external cause; H54.7 Unspecified visual loss; H91.90 Unspecified hearing loss, unspecified ear; Z88.8 Allergy status to other drugs, medicaments and biological substances; Z79.01 Long term (current) use of anticoagulants; T81.9XXA Unspecified complication of procedure, initial encounter; Y83.4 Other reconstructive surgery as the cause of abnormal reaction of the patient, or of later complication, without mention of misadventure at the time of the procedure
CPT/HCPCS: 36415; 73552-RT; 73560-RT; 73590-RT; 80053; 85025; 86140; 93971-RT; 94150; 97110-GO; 97110-GP; 97116-GP; 97161-GP; 97165-GO; 97530-GO; 97530-GO-KX; 97530-GP; 97535-GO; A9270-GY

== ENCOUNTER 2018-11-17 08:46 | Inpatient (IN) | payer MEDICARE, MEDICAID ==
[2018-11-17] MEDS ORDERED: Carbidopa/Levodopa 25-100 MG Tab PO ONE (12:15)
[2018-11-17] MEDS ORDERED: Furosemide 40 MG Tab PO PRN (12:53)
[2018-11-17] MEDS ORDERED: Hydrocortisone/Neomycin/Polymyxin B Otic Susp 10 ML Bottle EARLF PRN (12:53)
[2018-11-17] MEDS ORDERED: Carbidopa/Levodopa 50-200 MG Tab.ER PO PRN (12:53)
[2018-11-17] MEDS ORDERED: Albuterol 0.083% 2.5 MG/3 ML Neb Soln INH PRN (12:53)
[2018-11-17] MEDS ORDERED: diphenhydrAMINE 25 MG Cap PO PRN (12:53)
[2018-11-17] MEDS ORDERED: Mometasone Furoate Nasal Spray 17 GM Canister NASBOTH PRN (12:53)
[2018-11-17] MEDS ORDERED: Polyvinyl Alcohol 1.4% Ophth Soln 15 ML Bottle EYEBOTH PRN (14:00)
[2018-11-17] MEDS ORDERED: HEMP OIL PO SCH (14:00)
[2018-11-17] MEDS ORDERED: Fluticasone Propionate Nasal Spray 16 GM Bottle NASBOTH PRN (14:30)
[2018-11-17] MEDS: oxyCODONE 5 MG Tab PO PRN ×2 (14:42→19:18)
[2018-11-17] MEDS: Carbidopa/Levodopa 25-100 MG Tab PO SCH ×3 (16:51→16:53)
--- NOTE | 2018-11-17 16:53 | PCM.HP.2 ---
H&P History of Present Illness - General Date of Service: 11/17/18 Admit Problem/Dx: Admission Diagnosis/Problem Admission Diagnosis/Problem Knee joint operation Source of Information: Patient, Old Records History Limitations: Reports: No Limitations - History of Present Illness Initial Comments - Free Text/Narative: 58-year-old lady with medical history significant for chronic pain, Parkinson's , anxiety/depression, and hypercoagulable disorder, who was admitted to the hospital for bilateral knee arthroplasty revision. Patient underwent the procedure on 11/14/2018. Postop course was unremarkable. She was discharged to us on pain meds, laxatives, and home dose of Xarelto, per orthopedics. Patientwastachycardic during hospital stay, w/ HR < 110.Shereports that she is intermittently tachycardic atbaseline. EKG showed sinus rhythm. She also has a h/p chronic pain,MDD,anxiety,ckd,anemia due to blood loss and GERD. bilateral knees Pain Score (Numeric/FACES): 6 - Related Data Allergies/Adverse Reactions: Allergies Allergy/AdvReac Type Severity Reaction Status Date / Time gabapentin Allergy Slurred Verified 02/05/17 14:59 Speech Home Medications: Home Meds Biotin 5 mg PO DAILY 02/05/17 [History] Carbidopa/Levodopa [Sinemet 25-100 mg Tablet] 1 tab PO 06,0845,1130,1415,17 [History] Furosemide [Lasix] 40 mg PO DAILY PRN 02/05/17 [History] Multivitamin [Daily William] 1 tab PO DAILY 02/05/17 [History] Rivaroxaban [Xarelto] 20 mg PO WITHDINNER 02/05/17 [History] oxyCODONE 10 - 15 mg PO Q3H PRN 02/05/17 [History] Acetaminophen [Tylenol Extra Strength] 1,000 mg PO Q6H PRN 11/17/18 [History] Albuterol [Proventil Neb Soln] 2.5 mg IH QID PRN 11/17/18 [History] Calcium Carb & Citrate/Vit D3 [Citracal + D ER] 2 tab PO DAILY 11/17/18 [History ] Carbidopa/Levodopa [Sinemet CR 50-200] 1 tab PO BEDTIME 11/17/18 [History] Carbidopa/Levodopa [Sinemet CR 50-200] 1 tab PO DAILY PRN 11/17/18 [History] Cholecalciferol (Vitamin D3) [Vitamin D3] 10,000 unit PO DAILY 11/17/18 [History ] Dexlansoprazole [Dexilant] 60 mg PO DAILY 11/17/18 [History] Dextran 70/Hypromellose [Artificial Tears] 1 - 2 drop EYEBOTH Q4H PRN 11/17/18 [ History] Ferrous Sulfate 325 mg PO DAILY 11/17/18 [History] Flunisolide [Nasalide Nasal [place]] 2 spray NASBOTH BEDTIME PRN 11/17/18 [History ] Hemp Oil 1 dose PO TID 11/17/18 [History] Hydrocort/Neomycin/Polymyxin B [Cortisporin Otic Susp] 3 drop EARLF TID PRN 11/26 [History] Mirtazapine 30 mg PO BEDTIME 11/17/18 [History] Mometasone Furoate [Nasonex] 2 spray NASBOTH DAILY PRN 11/17/18 [History] Potassium 99 mg PO DAILY 11/17/18 [History] Sennosides/Docusate Sodium [Senna-S] 2 tab PO BID 11/17/18 [History] Vilazodone [Viibryd] 20 mg PO BEDTIME 11/17/18 [History] cycloSPORINE [Restasis] 1 drop EYEBOTH BID 11/17/18 [History] diphenhydrAMINE [Benadryl] 25 mg PO BEDTIME PRN 11/17/18 [History] Past Medical History HEENT History: Reports: Hard of Hearing, Impaired Vision Respiratory History: Reports: SOB Gastrointestinal History: Reports: GERD Genitourinary History: Reports: Urinary Incontinence Musculoskeletal History: Reports: Arthritis, Back Pain, Chronic Neurological History: Reports: Headaches, Chronic, Parkinson's, TIA Psychiatric History: Reports: Anxiety, Depression, Suicidal Ideation Endocrine/Metabolic History: Reports: Obesity/BMI 30+ Hematologic History: Reports: Anticoagulation Therapy - Infectious Disease History Infectious Disease History: Reports: Chicken Pox, Measles - Past Surgical History Head Surgeries/Procedures: Reports: None HEENT Surgical History: Reports: Adenoidectomy, Oral Surgery, Tonsillectomy Respiratory Surgical History: Reports: None GI Surgical History: Reports: Cholecystectomy, Colonoscopy Female Surgical History: Reports: Breast Biopsy, Hysterectomy Neurological Surgical History: Reports: None Musculoskeletal Surgical History: Reports: Knee Replacement Social & Family History - Family History Family Medical History: Noncontributory - Tobacco Use Smoking Status *Q: Never Smoker - Caffeine Use Caffeine Use: Reports: Coffee, Soda - Recreational Drug Use Recreational Drug Use: No H&P Review of Systems - Review of Systems: Review Of Systems: ROS reveals no pertinent complaints other than HPI. Exam - Exam Exam: See Below - Vital Signs Vital Signs: Last Vital Signs Temp 98.7 F 11/17/18 12:19 Pulse 98 11/17/18 12:19 Resp 14 11/17/18 12:19 BP 103/73 11/17/18 12:19 Pulse Ox Weight: 104.961 kg - Exam General: Alert, Oriented, 4 HEENT: PERRLA, Hearing Intact, Mucosa Moist & [place], Nares Patent, Normal Nasal Septum, Posterior Pharynx Clear, Conjunctiva Clear, EOMI, EACs Clear, TMs Clear Neck: Supple, Trachea Midline, 2 Lungs: Clear to Auscultation, Normal Respiratory Effort Cardiovascular: Regular Rate, Regular Rhythm GI/Abdominal Exam: Normal Bowel Sounds, Soft, Non-Tender, No Organomegaly, No Distention, No Abnormal Bruit, No Mass, Pelvis Stable (Female) Exam: Deferred Rectal (Female) Exam: Deferred Back Exam: Normal Inspection, Full Range of Motion, NT Extremities: Normal Inspection, Normal Range of Motion, Non-Tender, No Pedal Edema, Normal Capillary Refill Skin: Warm, Dry, Intact Neurological: Cranial Nerves Intact, Reflexes Equal Bilateral Neuro Extensive - Mental Status: Alert, Oriented x3, Normal Mood/Affect, Normal Cognition Neuro Extensive - Motor, Sensory, Reflexes: CN II-XII Intact, Normal Gait, Normal Reflexes Psychiatric: Alert, Normal Affect, Normal Mood - Problem List (1) S/P total knee arthroplasty SNOMED Code(s): 0238810076394, 284542849, 6317570148207 ICD Code: Z96.659 - PRESENCE OF UNSPECIFIED ARTIFICIAL KNEE JOINT Status: Acute Onset Date: 02/02/17 Qualifiers: Laterality: bilateral Qualified Code(s): Z96.653 - Presence of artificial knee joint, bilateral (2) Ambulatory dysfunction SNOMED Code(s): 857461753 ICD Code: R26.2 - DIFFICULTY IN WALKING, NOT ELSEWHERE CLASSIFIED Status: Acute Current Visit: Yes (3) MDD (major depressive disorder) SNOMED Code(s): 483753939 ICD Code: F32.9 - MAJOR DEPRESSIVE DISORDER, SINGLE EPISODE, UNSPECIFIED Status: Chronic Current Visit: Yes (4) Anxiety SNOMED Code(s): 43079135 ICD Code: F41.9 - ANXIETY DISORDER, UNSPECIFIED Status: Chronic Current Visit: Yes (5) Parkinson disease SNOMED Code(s): 17813833 ICD Code: G20 - PARKINSON'S DISEASE Status: Chronic Current Visit: Yes (6) Factor 5 Leiden mutation, heterozygous SNOMED Code(s): 103346240 ICD Code: D68.51 - ACTIVATED PROTEIN C RESISTANCE Status: Chronic Current Visit: Yes (7) Chronic pain SNOMED Code(s): 95277922 ICD Code: G89.29 - OTHER CHRONIC PAIN Status: Acute Current Visit: Yes Qualifiers: Chronic pain type: chronic pain syndrome Qualified Code(s): G89.4 - Chronic pain syndrome (8) GERD (gastroesophageal reflux disease) SNOMED Code(s): 586625694 ICD Code: K21.9 - GASTRO-ESOPHAGEAL REFLUX DISEASE WITHOUT ESOPHAGITIS Status: Chronic Current Visit: Yes (9) CKD (chronic kidney disease) SNOMED Code(s): 080140090 ICD Code: N18.9 - CHRONIC KIDNEY DISEASE, UNSPECIFIED Status: Chronic Current Visit: Yes Qualifiers: Chronic kidney disease stage: stage 3 (moderate) Qualified Code(s): N18.3 - Chronic kidney disease, stage 3 (moderate) Problem List Initiated/Reviewed/Updated: Yes Orders Last 24hrs: Active Orders 24 hr Category Date Time Status Admission Status [Patient Status] [ADT] Routine ADT 11/17/18 12:10 Active Communication Order [RC] ASDIRECTED Care 11/17/18 12:53 Active Height and Weight [RC] WEEKLY Care 11/17/18 12:52 Active Oxygen Therapy [RC] PRN Care 11/17/18 12:52 Active Up With Assistance [RC] ASDIRECTED Care 11/17/18 12:52 Active VTE/DVT Education [RC] Per Unit Routine Care 11/17/18 12:52 Active Vital Signs [RC] 08 Care 11/17/18 12:52 Active OT Evaluation and Treatment [CONS] Routine Cons 11/17/18 12:52 Active PT Evaluation and Treatment [CONS] Routine Cons 11/17/18 12:50 Active Regular Diet [DIET] Diet 11/17/18 Dinner Active Acetaminophen [Tylenol Extra Strength] Med 11/17/18 12:53 Active 1,000 mg PO Q6H PRN Albuterol [Proventil Neb Soln] Med 11/17/18 12:53 Active 2.5 mg INH QID PRN Biotin [Meribin] Med 11/18/18 09:00 Active 5 mg PO DAILY Calcium Carbonate [Tums] Med 11/18/18 09:00 Active 1,000 mg PO DAILY Carbidopa/Levodopa [Sinemet 25-100 mg] Med 11/17/18 14:15 Active 1 tab PO 06,0845,1130,1415,17 Carbidopa/Levodopa [Sinemet Cr 50-200 mg] Med 11/17/18 21:00 Active 1 tab PO BEDTIME Carbidopa/Levodopa [Sinemet Cr 50-200 mg] Med 11/17/18 12:53 Active 1 tab PO DAILY PRN Cholecalciferol (Vitamin D3) [Vitamin D3] Med 11/18/18 09:00 Active 50 mcg PO DAILY Docusate Sodium/Sennosides [Senna Plus] Med 11/17/18 21:00 Active 2 tab PO BID Ferrous Sulfate Med 11/18/18 09:00 Active 325 mg PO DAILY Fluticasone Propionate [Flonase] Med 11/17/18 14:30 Active 0 gm NASBOTH BID PRN Furosemide [Lasix] Med 11/17/18 12:53 Active 40 mg PO DAILY PRN Hydrocort/Neomycin/Polymyxin B [Cortisporin Otic Susp] Med 11/17/18 12:53 Active 0 ml EARLF TID PRN Mirtazapine [Remeron] Med 11/17/18 21:00 Active 30 mg PO BEDTIME Multivitamins [Tab-A-William] Med 11/18/18 09:00 Active 1 tab PO DAILY Pantoprazole [ProTONIX] Med 11/18/18 07:30 Active 40 mg PO ACBREAKFAST Polyvinyl Alcohol [LiquiTears 1.4% Ophth Soln] Med 11/17/18 14:00 Active 0 ml EYEBOTH Q4H PRN Rivaroxaban [Xarelto] Med 11/17/18 18:00 Active 20 mg PO WITHDINNER Vilazodone [Viibryd] Med 11/17/18 21:00 Active 20 mg PO BEDTIME cycloSPORINE [Restasis] Med 11/17/18 21:00 Active 0 each EYEBOTH BID diphenhydrAMINE [Benadryl] Med 11/17/18 12:53 Active 25 mg PO BEDTIME PRN oxyCODONE Med 11/17/18 12:53 Active 10 mg PO Q3H PRN oxyCODONE Med 11/17/18 14:20 Active 15 mg PO Q3H PRN Code Status [Resuscitation Status] Routine Resus Stat 11/17/18 12:50 Ordered Medication Orders Acetaminophen (Tylenol Extra Strength) 1,000 mg PO Q6H PRN PRN Reason: MILD PAIN Albuterol (Proventil Neb Soln) 2.5 mg INH QID PRN PRN Reason: Cough Artificial Tears (Liquitears 1.4% Ophth Soln) 0 ml EYEBOTH Q4H PRN PRN Reason: DRY EYES Biotin (Meribin) 5 mg PO DAILY [facility]A Calcium Carbonate/Glycine (Tums) 1,000 mg PO DAILY TH[facility]A Carbidopa/Levodopa (Sinemet 25-100 Mg) 1 tab PO 06,0845,1130,1415,17 [facility]A Carbidopa/Levodopa (Sinemet Cr 50-200 Mg) 1 tab PO BEDTIME [facility]A Carbidopa/Levodopa (Sinemet Cr 50-200 Mg) 1 tab PO DAILY PRN PRN Reason: PARKINSONS Cholecalciferol (Vitamin D3) 50 mcg PO DAILY THERESA Cyclosporine (Restasis) 0 each EYEBOTH BID [facility]ESA Diphenhydramine HCl (Benadryl) 25 mg PO BEDTIME PRN PRN Reason: Insomnia Ferrous Sulfate (Ferrous Sulfate) 325 mg PO DAILY [facility] Fluticasone Propionate (Flonase) 0 gm NASBOTH BID PRN PRN Reason: RHINITIS Furosemide (Lasix) 40 mg PO DAILY PRN PRN Reason: Edema Mirtazapine (Remeron) 30 mg PO BEDTIME [facility]A Multivitamins/Minerals/Vitamin C (Tab-A-William) 1 tab PO DAILY [facility]A Neomycin/Polymyxin/Hydrocortisone (Cortisporin Otic Susp) 0 ml EARLF TID PRN PRN Reason: Itching Oxycodone HCl (Oxycodone) 10 mg PO Q3H PRN PRN Reason: PAIN -09/17 Last Admin: 11/17/18 14:42 Dose: 10 mg Oxycodone HCl (Oxycodone) 15 mg PO Q3H PRN PRN Reason: PAIN -11/17 Pantoprazole Sodium (Protonix) 40 mg PO [facility]AKFAST [facility] Rivaroxaban (Xarelto) 20 mg PO WITHDINNER [facility] Senna/Docusate Sodium (Senna Plus) 2 tab PO BID [facility] Vilazodone HCl (Viibryd) 20 mg PO BEDTIME [facility] Assessment/Plan Comment:: Admit to [facility]. PT/OT. Hgb was 9.2 on discharge. Resume home Meds - Mortality Measure Prognosis:: Good
[2018-11-17] MEDS: Mirtazapine 30 MG Tab PO SCH (20:55)
[2018-11-17] MEDS: Carbidopa/Levodopa 50-200 MG Tab.ER PO SCH (20:55)
[2018-11-17] MEDS: Vilazodone 20 MG Tab PO SCH (20:55)
[2018-11-17] MEDS: cycloSPORINE Ophth Drops U/D Box of 30 EYEBOTH SCH (20:56)
[2018-11-18] MEDS: oxyCODONE 5 MG Tab PO PRN ×4 (00:36→16:25)
[2018-11-18] MEDS: Carbidopa/Levodopa 25-100 MG Tab PO SCH ×5 (06:13→16:26)
[2018-11-18] MEDS: Pantoprazole 40 MG Tab.CR PO SCH ×2 (06:13→08:27)
[2018-11-18] MEDS: Biotin 5 MG Cap PO SCH (08:26)
[2018-11-18] MEDS: Cholecalciferol (Vitamin D3) 25 MCG Tab PO SCH (08:26)
[2018-11-18] MEDS: Multivitamin Tab PO SCH (08:26)
[2018-11-18] MEDS: Ferrous Sulfate 325 MG Tab PO SCH (08:26)
[2018-11-18] MEDS: cycloSPORINE Ophth Drops U/D Box of 30 EYEBOTH SCH ×2 (08:27→19:59)
[2018-11-18] MEDS ORDERED: Non-Formulary Medication 1 Each (Potassium [Potassium] 99 MG) PO SCH (09:00)
[2018-11-18] MEDS ORDERED: Calcium Carbonate 500 MG Tab.Chew PO SCH (09:00)
[2018-11-18] MEDS: Acetaminophen 500 MG Tab PO PRN (11:55)
[2018-11-18] MEDS: Mirtazapine 30 MG Tab PO SCH (19:59)
[2018-11-18] MEDS: Carbidopa/Levodopa 50-200 MG Tab.ER PO SCH (20:00)
[2018-11-18] MEDS: Vilazodone 20 MG Tab PO SCH (20:00)
[2018-11-19] MEDS: Carbidopa/Levodopa 25-100 MG Tab PO SCH ×5 (05:54→17:26)
[2018-11-19] MEDS: Pantoprazole 40 MG Tab.CR PO SCH (06:44)
[2018-11-19] MEDS: oxyCODONE 5 MG Tab PO PRN ×3 (07:43→17:25)
[2018-11-19] MEDS: Biotin 5 MG Cap PO SCH (08:00)
[2018-11-19] MEDS: Multivitamin Tab PO SCH (08:00)
[2018-11-19] MEDS: Ferrous Sulfate 325 MG Tab PO SCH (08:00)
[2018-11-19] MEDS: cycloSPORINE Ophth Drops U/D Box of 30 EYEBOTH SCH ×2 (08:00→20:28)
[2018-11-19] MEDS: Calcium Carbonate 500 MG Tablet PO SCH (08:01)
[2018-11-19] MEDS: Cholecalciferol (Vitamin D3) 25 MCG Tab PO SCH (08:01)
[2018-11-19] MEDS: Acetaminophen 500 MG Tab PO PRN (12:13)
[2018-11-19] MEDS: Mirtazapine 30 MG Tab PO SCH (20:28)
[2018-11-19] MEDS: Carbidopa/Levodopa 50-200 MG Tab.ER PO SCH (20:29)
[2018-11-19] MEDS: Vilazodone 20 MG Tab PO SCH (20:30)
[2018-11-20] MEDS: Pantoprazole 40 MG Tab.CR PO SCH (06:34)
[2018-11-20] MEDS: Carbidopa/Levodopa 25-100 MG Tab PO SCH ×5 (06:34→18:30)
[2018-11-20] MEDS: oxyCODONE 5 MG Tab PO PRN ×3 (07:58→18:30)
[2018-11-20] MEDS: Calcium Carbonate 500 MG Tablet PO SCH (08:02)
[2018-11-20] MEDS: Ferrous Sulfate 325 MG Tab PO SCH (08:02)
[2018-11-20] MEDS: Multivitamin Tab PO SCH (08:02)
[2018-11-20] MEDS: cycloSPORINE Ophth Drops U/D Box of 30 EYEBOTH SCH ×2 (08:02→20:34)
[2018-11-20] MEDS: Biotin 5 MG Cap PO SCH (08:02)
[2018-11-20] MEDS: Cholecalciferol (Vitamin D3) 25 MCG Tab PO SCH (08:02)
[2018-11-20] MEDS: Acetaminophen 500 MG Tab PO PRN (13:30)
[2018-11-20] MEDS: Mirtazapine 30 MG Tab PO SCH (20:34)
[2018-11-20] MEDS: Carbidopa/Levodopa 50-200 MG Tab.ER PO SCH (20:35)
[2018-11-20] MEDS: Vilazodone 20 MG Tab PO SCH (20:35)
[2018-11-21] MEDS: oxyCODONE 5 MG Tab PO PRN ×4 (05:28→20:17)
[2018-11-21] MEDS: Carbidopa/Levodopa 25-100 MG Tab PO SCH ×5 (05:28→17:11)
[2018-11-21] MEDS: Pantoprazole 40 MG Tab.CR PO SCH (06:47)
[2018-11-21] MEDS: cycloSPORINE Ophth Drops U/D Box of 30 EYEBOTH SCH ×2 (08:46→20:18)
[2018-11-21] MEDS: Acetaminophen 500 MG Tab PO PRN ×2 (08:47→14:45)
[2018-11-21] MEDS: Biotin 5 MG Cap PO SCH (08:47)
[2018-11-21] MEDS: Multivitamin Tab PO SCH (08:47)
[2018-11-21] MEDS: Ferrous Sulfate 325 MG Tab PO SCH (08:48)
[2018-11-21] MEDS: Calcium Carbonate 500 MG Tablet PO SCH (08:48)
[2018-11-21] MEDS: Cholecalciferol (Vitamin D3) 25 MCG Tab PO SCH (08:48)
[2018-11-21] MEDS: Vilazodone 20 MG Tab PO SCH (20:18)
[2018-11-21] MEDS: Mirtazapine 30 MG Tab PO SCH (20:19)
[2018-11-21] MEDS: Carbidopa/Levodopa 50-200 MG Tab.ER PO SCH (20:19)
[2018-11-22] MEDS: Carbidopa/Levodopa 25-100 MG Tab PO SCH ×5 (06:23→17:29)
[2018-11-22] MEDS: Pantoprazole 40 MG Tab.CR PO SCH ×2 (06:24→06:57)
[2018-11-22] MEDS: oxyCODONE 5 MG Tab PO PRN ×2 (06:24→15:30)
[2018-11-22] MEDS ORDERED: Simethicone 80 MG Tab.Chew PO PRN (07:52)
[2018-11-22] MEDS: cycloSPORINE Ophth Drops U/D Box of 30 EYEBOTH SCH ×2 (08:23→20:17)
[2018-11-22] MEDS: Ferrous Sulfate 325 MG Tab PO SCH (08:25)
[2018-11-22] MEDS: Biotin 5 MG Cap PO SCH (08:26)
[2018-11-22] MEDS: Calcium Carbonate 500 MG Tablet PO SCH (08:26)
[2018-11-22] MEDS: Multivitamin Tab PO SCH (08:28)
[2018-11-22] MEDS: Cholecalciferol (Vitamin D3) 25 MCG Tab PO SCH (08:28)
[2018-11-22] MEDS: Polyethylene Glycol 3350 Powder 17 GM Packet PO PRN (14:28)
[2018-11-22] MEDS: Mirtazapine 30 MG Tab PO SCH (20:17)
[2018-11-22] MEDS: Vilazodone 20 MG Tab PO SCH (20:18)
[2018-11-22] MEDS: Carbidopa/Levodopa 50-200 MG Tab.ER PO SCH (20:18)
[2018-11-23] MEDS: Carbidopa/Levodopa 25-100 MG Tab PO SCH ×5 (05:33→17:27)
[2018-11-23] MEDS: oxyCODONE 5 MG Tab PO PRN ×3 (05:34→15:24)
[2018-11-23] MEDS: Polyethylene Glycol 3350 Powder 17 GM Packet PO PRN (05:35)
[2018-11-23] MEDS: Pantoprazole 40 MG Tab.CR PO SCH (06:32)
[2018-11-23] MEDS: Biotin 5 MG Cap PO SCH (08:17)
[2018-11-23] MEDS: Ferrous Sulfate 325 MG Tab PO SCH (08:17)
[2018-11-23] MEDS: cycloSPORINE Ophth Drops U/D Box of 30 EYEBOTH SCH ×2 (08:18→20:16)
[2018-11-23] MEDS: Calcium Carbonate 500 MG Tablet PO SCH (08:18)
[2018-11-23] MEDS: Multivitamin Tab PO SCH (08:18)
[2018-11-23] MEDS: Cholecalciferol (Vitamin D3) 25 MCG Tab PO SCH (08:18)
[2018-11-23] MEDS: Carbidopa/Levodopa 50-200 MG Tab.ER PO SCH (20:16)
[2018-11-23] MEDS: Mirtazapine 30 MG Tab PO SCH (20:16)
[2018-11-23] MEDS: Vilazodone 20 MG Tab PO SCH (20:17)
[2018-11-24] MEDS: Carbidopa/Levodopa 25-100 MG Tab PO SCH ×5 (05:28→17:49)
[2018-11-24] MEDS: oxyCODONE 5 MG Tab PO PRN ×5 (05:28→21:34)
[2018-11-24] MEDS: Pantoprazole 40 MG Tab.CR PO SCH (06:35)
[2018-11-24] MEDS: Multivitamin Tab PO SCH (08:14)
[2018-11-24] MEDS: Biotin 5 MG Cap PO SCH (08:14)
[2018-11-24] MEDS: Ferrous Sulfate 325 MG Tab PO SCH (08:14)
[2018-11-24] MEDS: Calcium Carbonate 500 MG Tablet PO SCH (08:15)
[2018-11-24] MEDS: Cholecalciferol (Vitamin D3) 25 MCG Tab PO SCH (08:15)
[2018-11-24] MEDS: cycloSPORINE Ophth Drops U/D Box of 30 EYEBOTH SCH ×2 (08:15→21:33)
[2018-11-24] MEDS: Polyethylene Glycol 3350 Powder 17 GM Packet PO PRN (10:11)
[2018-11-24] MEDS ORDERED: Bisacodyl 5 MG Tab PO PRN (10:24)
--- NOTE | 2018-11-24 17:27 | PCM.PN ---
- General Info Date of Service: 11/24/18 Admission Dx/Problem (Free Text): Patient complaining of constipation and gas pains today, mainly in LLQ. Has been passing gas. Is on Senna plus, Dulcolax, and MiraLAX was added after care conference on Wednesday. Did not do well with car transfer so will likely go next week sometime. No shortness of breath, or chest pain. No nausea or vomiting. - Patient Data Vitals - Most Recent: Last Vital Signs Temp 98.2 F 11/24/18 07:45 Pulse 89 11/24/18 07:45 Resp 22 H 11/24/18 07:45 BP 96/60 11/24/18 07:45 Pulse Ox 94 L 11/24/18 07:45 Weight - Most Recent: 231 lb 6.4 oz Med Orders - Current: Current Medications Acetaminophen (Tylenol Extra Strength) 1,000 mg PO Q6H PRN PRN Reason: MILD PAIN Last Admin: 11/21/18 14:45 Dose: 1,000 mg Albuterol (Proventil Neb Soln) 2.5 mg INH QID PRN PRN Reason: Cough Artificial Tears (Liquitears 1.4% Ophth Soln) 0 ml EYEBOTH Q4H PRN PRN Reason: DRY EYES Biotin (Meribin) 5 mg PO DAILY [facility] Last Admin: 11/24/18 08:14 Dose: 5 mg Bisacodyl (Dulcolax) 5 mg PO DAILY PRN PRN Reason: Constipation Last Admin: 11/24/18 12:55 Dose: 5 mg Calcium Carbonate/Glycine (Oyster [place] Calcium) 1,000 mg PO DAILY [facility] Last Admin: 11/24/18 08:15 Dose: 1,000 mg Carbidopa/Levodopa (Sinemet Cr 50-200 Mg) 1 tab PO BEDTIME [facility] Last Admin: 11/23/18 20:16 Dose: 1 tab Carbidopa/Levodopa (Sinemet Cr 50-200 Mg) 1 tab PO DAILY PRN PRN Reason: PARKINSONS Carbidopa/Levodopa (Sinemet 25-100 Mg) 2 tab PO 06,0845,1130,1415,17 [facility] Last Admin: 11/24/18 15:34 Dose: 2 tab Cholecalciferol (Vitamin D3) 50 mcg PO DAILY [facility] Last Admin: 11/24/18 08:15 Dose: 50 mcg Cyclosporine (Restasis) 0 each EYEBOTH BID [facility] Last Admin: 11/24/18 08:15 Dose: 1 drop Diphenhydramine HCl (Benadryl) 25 mg PO BEDTIME PRN PRN Reason: Insomnia Ferrous Sulfate (Ferrous Sulfate) 325 mg PO DAILY [facility] Last Admin: 11/24/18 08:14 Dose: 325 mg Fluticasone Propionate (Flonase) 0 gm NASBOTH BID PRN PRN Reason: RHINITIS Furosemide (Lasix) 40 mg PO DAILY PRN PRN Reason: Edema Mirtazapine (Remeron) 30 mg PO BEDTIME [facility] Last Admin: 11/23/18 20:16 Dose: 30 mg Multivitamins/Minerals/Vitamin C (Tab-A-William) 1 tab PO DAILY [facility] Last Admin: 11/24/18 08:14 Dose: 1 tab Neomycin/Polymyxin/Hydrocortisone (Cortisporin Otic Susp) 0 ml EARLF TID PRN PRN Reason: Itching Oxycodone HCl (Oxycodone) 10 mg PO Q3H PRN PRN Reason: PAIN 6-810 Last Admin: 11/24/18 12:56 Dose: 10 mg Oxycodone HCl (Oxycodone) 15 mg PO Q3H PRN PRN Reason: PAIN 9-11/17 Last Admin: 11/23/18 15:24 Dose: 15 mg Pantoprazole Sodium (Protonix) 40 mg PO ACBREAKFAST [facility] Last Admin: 11/24/18 06:35 Dose: 40 mg Polyethylene Glycol (Miralax) 17 gm PO DAILY PRN PRN Reason: Constipation Last Admin: 11/24/18 10:11 Dose: 17 gm Rivaroxaban (Xarelto) 20 mg PO WITHDINNER [facility] Last Admin: 11/23/18 17:27 Dose: 20 mg Senna/Docusate Sodium (Senna Plus) 2 tab PO BID [facility] Last Admin: 11/24/18 08:14 Dose: 2 tab Simethicone (Simethicone) 80 mg PO TIDPC PRN PRN Reason: Gas Vilazodone HCl (Viibryd) 20 mg PO BEDTIME [facility] Last Admin: 11/23/18 20:17 Dose: 20 mg Discontinued Medications Calcium Carbonate/Glycine (Tums) 1,000 mg PO DAILY [facility] Last Admin: 11/18/18 08:26 Dose: 1,000 mg Carbidopa/Levodopa (Sinemet 25-100 Mg) 1 tab PO ONETIME ONE Stop: 11/17/18 12:16 Last Admin: 11/17/18 13:07 Dose: 1 tab Carbidopa/Levodopa (Sinemet 25-100 Mg) 1 tab PO 06,0845,1130,1415,17 [facility] Last Admin: 11/18/18 08:25 Dose: 1 tab Carbidopa/Levodopa (Sinemet 25-100 Mg) 1.5 tab PO 06,0845,1130,1415,17 [facility] Stop: 11/21/18 02:00 Last Admin: 11/20/18 18:30 Dose: 1.5 tab Non-Formulary Medication (Hemp Oil) 1 dose PO TID [facility] Last Admin: 11/17/18 15:03 Dose: Not Given Non-Formulary Medication (Potassium [Potassium]) 99 mg PO DAILY [facility] - Exam General: Alert, Oriented, Cooperative, No Acute Distress Lungs: Clear to Auscultation, Normal Respiratory Effort Cardiovascular: Regular Rate, Regular Rhythm GI/Abdominal Exam: Normal Bowel Sounds, Soft, Tender (LLQ, but diffuse) - Problem List & Annotations (1) S/P total knee arthroplasty SNOMED Code(s): 0934920738437, 551432941, 3208312330562 Code(s): Z96.659 - PRESENCE OF UNSPECIFIED ARTIFICIAL KNEE JOINT Status: Acute Current Visit: No Onset Date: 02/02/17 Qualifiers: Laterality: bilateral Qualified Code(s): Z96.653 - Presence of artificial knee joint, bilateral (2) Constipation SNOMED Code(s): 63427438 Code(s): K59.00 - CONSTIPATION, UNSPECIFIED Status: Acute Current Visit: Yes (3) CKD (chronic kidney disease) SNOMED Code(s): 390368159 Code(s): N18.9 - CHRONIC KIDNEY DISEASE, UNSPECIFIED Status: Chronic Current Visit: Yes Qualifiers: Chronic kidney disease stage: stage 3 (moderate) Qualified Code(s): N18.3 - Chronic kidney disease, stage 3 (moderate) (4) Factor 5 Leiden mutation, heterozygous SNOMED Code(s): 518426011 Code(s): D68.51 - ACTIVATED PROTEIN C RESISTANCE Status: Chronic Current Visit: Yes (5) GERD (gastroesophageal reflux disease) SNOMED Code(s): 320835782 Code(s): K21.9 - GASTRO-ESOPHAGEAL REFLUX DISEASE WITHOUT ESOPHAGITIS Status: Chronic Current Visit: Yes (6) MDD (major depressive disorder) SNOMED Code(s): 354284679 Code(s): F32.9 - MAJOR DEPRESSIVE DISORDER, SINGLE EPISODE, UNSPECIFIED Status: Chronic Current Visit: Yes (7) Parkinson disease SNOMED Code(s): 94958215 Code(s): G20 - PARKINSON'S DISEASE Status: Chronic Current Visit: Yes - Problem List Review Problem List Initiated/Reviewed/Updated: Yes - My Orders Last 24 Hours: My Active Orders 11/24/18 10:24 Bisacodyl [Dulcolax] 5 mg PO DAILY PRN - Plan Plan:: Changed MiraLAX to daily scheduled. Senna Plus 2 tab bid. Dulcolax, encourage prune juice. Adjust as needed to have daily bowel movements, hold for loose stools.
[2018-11-24] MEDS: Carbidopa/Levodopa 50-200 MG Tab.ER PO SCH (21:32)
[2018-11-24] MEDS: Vilazodone 20 MG Tab PO SCH (21:32)
[2018-11-24] MEDS: Mirtazapine 30 MG Tab PO SCH (21:33)
[2018-11-25] MEDS: Carbidopa/Levodopa 25-100 MG Tab PO SCH ×5 (06:13→17:29)
[2018-11-25] MEDS: oxyCODONE 5 MG Tab PO PRN ×4 (06:14→22:30)
[2018-11-25] MEDS: Pantoprazole 40 MG Tab.CR PO SCH (07:43)
[2018-11-25] MEDS: Multivitamin Tab PO SCH (08:19)
[2018-11-25] MEDS: Ferrous Sulfate 325 MG Tab PO SCH (08:19)
[2018-11-25] MEDS: Calcium Carbonate 500 MG Tablet PO SCH (08:19)
[2018-11-25] MEDS: Cholecalciferol (Vitamin D3) 25 MCG Tab PO SCH (08:19)
[2018-11-25] MEDS: Biotin 5 MG Cap PO SCH (08:19)
[2018-11-25] MEDS: cycloSPORINE Ophth Drops U/D Box of 30 EYEBOTH SCH ×2 (08:20→21:39)
[2018-11-25] MEDS: Polyethylene Glycol 3350 Powder 17 GM Packet PO SCH (08:32)
--- NOTE | 2018-11-25 12:06 | PN ---
DATE SEEN: 11/25/2018 SUBJECTIVE: Penny Rivas is a 58-year-old female, seen today for review. Had a recent bilateral total knee arthroplasty revision. Doing well. Pain appears to be controlled, has not constipation, gas and some difficulties. Care conference planned for next Wednesday. Car transfer somewhat under duress. PHYSICAL EXAMINATION: VITAL SIGNS: 105 kg, 36.9, 90, 98/57, 14, 95%. GENERAL: Appears comfortable. Wound dressings were clear. ASSESSMENT: Total knee arthroplasty. PLAN: Support measures, pain control, ambulation and independence upcoming and planned. /[id number] /[id number]
[2018-11-25] MEDS: Mirtazapine 30 MG Tab PO SCH (21:38)
[2018-11-25] MEDS: Carbidopa/Levodopa 50-200 MG Tab.ER PO SCH (21:38)
[2018-11-25] MEDS: Vilazodone 20 MG Tab PO SCH (21:40)
[2018-11-26] MEDS: oxyCODONE 5 MG Tab PO PRN ×5 (06:26→21:10)
[2018-11-26] MEDS: Carbidopa/Levodopa 25-100 MG Tab PO SCH ×5 (06:28→16:57)
[2018-11-26] MEDS: Pantoprazole 40 MG Tab.CR PO SCH (07:27)
[2018-11-26] MEDS: cycloSPORINE Ophth Drops U/D Box of 30 EYEBOTH SCH ×2 (08:31→21:11)
[2018-11-26] MEDS: Ferrous Sulfate 325 MG Tab PO SCH (08:32)
[2018-11-26] MEDS: Polyethylene Glycol 3350 Powder 17 GM Packet PO SCH (08:32)
[2018-11-26] MEDS: Calcium Carbonate 500 MG Tablet PO SCH (08:32)
[2018-11-26] MEDS: Biotin 5 MG Cap PO SCH (08:32)
[2018-11-26] MEDS: Multivitamin Tab PO SCH (08:32)
[2018-11-26] MEDS: Cholecalciferol (Vitamin D3) 25 MCG Tab PO SCH (08:32)
--- NOTE | 2018-11-26 12:54 | PN ---
DATE SEEN: 11/26/2018 Penny Rivas is a 58-year-old female, seen today for review in swing bed. Had bilateral total knee arthroplasties, 11/14/2017. Wound VAC had been placed on the right side. Dressings have been changed on the left side, but not the right side. Ecchymosis wounds were healing well as viewed. Complicated bilateral knee pain. Total knee arthroplasty with revision is planned. Wound VAC to be reviewed by PT under consideration. /[id number] JULIAN/ABHIJEET
[2018-11-26] MEDS: Acetaminophen 500 MG Tab PO PRN (16:57)
[2018-11-26] MEDS: Carbidopa/Levodopa 50-200 MG Tab.ER PO SCH (21:11)
[2018-11-26] MEDS: Mirtazapine 30 MG Tab PO SCH (21:12)
[2018-11-26] MEDS: Vilazodone 20 MG Tab PO SCH (21:12)
[2018-11-27] MEDS: oxyCODONE 5 MG Tab PO PRN ×4 (06:43→20:59)
[2018-11-27] MEDS: Carbidopa/Levodopa 25-100 MG Tab PO SCH ×5 (06:43→17:06)
[2018-11-27] MEDS: Pantoprazole 40 MG Tab.CR PO SCH (06:43)
[2018-11-27] MEDS: cycloSPORINE Ophth Drops U/D Box of 30 EYEBOTH SCH ×2 (08:38→20:20)
[2018-11-27] MEDS: Polyethylene Glycol 3350 Powder 17 GM Packet PO SCH (08:39)
[2018-11-27] MEDS: Cholecalciferol (Vitamin D3) 25 MCG Tab PO SCH (08:40)
[2018-11-27] MEDS: Calcium Carbonate 500 MG Tablet PO SCH (08:40)
[2018-11-27] MEDS: Biotin 5 MG Cap PO SCH (08:40)
[2018-11-27] MEDS: Multivitamin Tab PO SCH (08:41)
[2018-11-27] MEDS: Ferrous Sulfate 325 MG Tab PO SCH (08:41)
--- NOTE | 2018-11-27 12:10 | PN ---
DATE SEEN: 11/27/2018 SUBJECTIVE: Penny Rivas is a 58-year-old female status post revisions of both total knee arthroplasty. Right more problematic, brace in place, wound VAC in place. The wound VAC no longer functioning. Upcoming visit with Ortho planned. Pain is well controlled. Stools have been better. OBJECTIVE: VITAL SIGNS: 36.9, 90/55, mean blood pressure 66, respirations 14, O2 saturation 95%. GENERAL: Appears comfortable. NECK: Benign. Thyroid small. CHEST: Clear in all lung cameron. HEART: No ectopy or murmur. ABDOMEN: Benign. SKIN: Wound on the right still enclosed in brace and heavy wound dressing, wound to the left looks well. ASSESSMENT: Postop total knee arthroplasties x2. PLAN: Medications, care and treatment appropriate, pain control. /[id number] JULIAN/ABHIJEET
[2018-11-27] MEDS: Mirtazapine 30 MG Tab PO SCH (20:20)
[2018-11-27] MEDS: Vilazodone 20 MG Tab PO SCH (20:21)
[2018-11-27] MEDS: Carbidopa/Levodopa 50-200 MG Tab.ER PO SCH (20:21)
[2018-11-28] MEDS: oxyCODONE 5 MG Tab PO PRN ×4 (05:06→17:19)
[2018-11-28] MEDS: Carbidopa/Levodopa 25-100 MG Tab PO SCH ×5 (05:06→17:16)
[2018-11-28] MEDS: Pantoprazole 40 MG Tab.CR PO SCH ×2 (05:07→06:32)
[2018-11-28] MEDS: Ferrous Sulfate 325 MG Tab PO SCH (09:02)
[2018-11-28] MEDS: Biotin 5 MG Cap PO SCH (09:02)
[2018-11-28] MEDS: Polyethylene Glycol 3350 Powder 17 GM Packet PO SCH (09:03)
[2018-11-28] MEDS: Cholecalciferol (Vitamin D3) 25 MCG Tab PO SCH (09:03)
[2018-11-28] MEDS: Calcium Carbonate 500 MG Tablet PO SCH (09:03)
[2018-11-28] MEDS: cycloSPORINE Ophth Drops U/D Box of 30 EYEBOTH SCH ×2 (09:04→20:16)
[2018-11-28] MEDS: Multivitamin Tab PO SCH (09:04)
--- NOTE | 2018-11-28 12:54 | PN ---
DATE SEEN: 11/28/2018 SUBJECTIVE: Penny Rivas is a 58-year-old female, rehab stay at swing bed 11/17/2018. Underwent bilateral total knee arthroplasty with revisions. Wound VAC, nonfunctioning, unattached left side. That wound has not been examined. Left side wound heals well. No particular complaints. Stools have been fine. Pain has been controlled. LABORATORY STUDIES: None. RADIOGRAPHS: None. OBJECTIVE: VITAL SIGNS: 36.5; 114/54, mean blood pressure 72; respirations 12; 95% on room air. GENERAL: Appears comfortable. NECK: Benign. Thyroid small. CHEST: Clear in all lung cameron. HEART: No ectopy or murmur. ABDOMEN: Benign. EXTREMITIES: Right leg in brace and bulky dressing applied. Wound not examined. Left wound satisfactory. ASSESSMENT: Postoperative healing, rehab, bilateral total knee arthroplasty. PLAN: Medications, care and treatment appropriate, plan to visit Orthopedics at end of November. /[id number] JULIAN/ABHIJEET
[2018-11-28] MEDS: Vilazodone 20 MG Tab PO SCH (20:15)
[2018-11-28] MEDS: Carbidopa/Levodopa 50-200 MG Tab.ER PO SCH (20:16)
[2018-11-28] MEDS: Mirtazapine 30 MG Tab PO SCH (20:17)
[2018-11-29] MEDS: Pantoprazole 40 MG Tab.CR PO SCH (06:40)
[2018-11-29] MEDS: Carbidopa/Levodopa 25-100 MG Tab PO SCH ×5 (06:40→17:30)
[2018-11-29] MEDS: oxyCODONE 5 MG Tab PO PRN (06:44)
[2018-11-29] MEDS: Ferrous Sulfate 325 MG Tab PO SCH (09:49)
[2018-11-29] MEDS: Multivitamin Tab PO SCH (09:49)
[2018-11-29] MEDS: Calcium Carbonate 500 MG Tablet PO SCH (09:50)
[2018-11-29] MEDS: Polyethylene Glycol 3350 Powder 17 GM Packet PO SCH (09:50)
[2018-11-29] MEDS: cycloSPORINE Ophth Drops U/D Box of 30 EYEBOTH SCH ×2 (09:51→21:36)
[2018-11-29] MEDS: Biotin 5 MG Cap PO SCH (09:51)
[2018-11-29] MEDS: Cholecalciferol (Vitamin D3) 25 MCG Tab PO SCH (09:55)
--- NOTE | 2018-11-29 10:57 | PN ---
DATE SEEN: 11/29/2018 SUBJECTIVE: Penny Rivas is a 58-year-old female, in swing bed. Bilateral total knee arthroplasty. More troublesome on the right, brace and bulky dressing in place. Wound VAC not being used and capped. Doing well with pain, some constipation. PHYSICAL EXAMINATION: EXTREMITIES: Left knee wound satisfactory. Right knee examined through brace. CHEST: Clear. HEART: Regular. ASSESSMENT: Bilateral total knee revisions. PLAN: Therapy in place. Upcoming visit in end november with orthopedics. /[id number] /ABHIJEET
[2018-11-29] MEDS: Acetaminophen 650 MG Tab.ER PO SCH ×2 (11:30→21:38)
[2018-11-29] MEDS: Mirtazapine 30 MG Tab PO SCH (21:35)
[2018-11-29] MEDS: Vilazodone 20 MG Tab PO SCH (21:38)
[2018-11-29] MEDS: Carbidopa/Levodopa 50-200 MG Tab.ER PO SCH (21:38)
[2018-11-30] MEDS: Carbidopa/Levodopa 25-100 MG Tab PO SCH ×5 (06:23→18:23)
[2018-11-30] MEDS: Pantoprazole 40 MG Tab.CR PO SCH (06:33)
--- OUTSIDE RECORDS SUMMARY | 2018-11-30 07:35 | XMSREPORT ---
:1960 Author Organization [facility] Address [facility] [place] [address] Care Team Providers Name Role Phone Carter Tamayo MD Primary Care Provider Carter Tamayo MD Attributed Provider Faizan Balbuena PHD Unavailable Alina Andino MD Unavailable Reason for Visit Reason Comments Auth/Cert (Routine) Status Reason Specialty Diagnoses / Procedures Referred By Referred To Contact Contact Continuity of Orthopedics Diagnoses Broken internal joint prosthesis, other site, initial encounter SofiRadha Procedures REVISION TOTAL KNEE ARTHROPLASTY FEMORAL & ENTIRE TIBIAL COMPONENT SUTURE QUADRICEPS HAMSTRING MUSCLE RUPTURE SECONDRECONSTRUCT WFASCIAL Titi Macario MD [address] [place] [id number] Encounter Details Date Type Department Care Team Description 11/14/2018 - Hospital Encounter Sofi, 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 documented as of this encounter (statuses as of 11/17/2018) Medications Medication Sig Dispensed Refills Start End Status Date Date Multiple Take 1 tablet 0 Active Vitamins-Minerals by mouth 1 time (MULTIVITAMIN PO) per day. Biotin 5000 MCG CAPS Take 5,000 mcg 0 Active by mouth 1 time per day acetaminophen (TYLENOL) Take 1,000 mg 0 Active 500 mg tablet by mouth every 6 hours as needed for mild pain albuterol (PROVENTIL) Inhale 1 nebule 120 nebule 3 11/19/1911/23/ Active (2.5 mg/3mL) 0.083% (2.5 mg) by 2018 inhalation nebulization 4 solutionIndications: times a day as Cough needed for cough miscellaneous oral Take by mouth 0 Active medication MISC Hemp oil three times per day as directed. cycloSPORINE (RESTASIS) Place 1 drop 1 Bottle 6 04/29/19 Active 0.05 % ophthalmic into both eyes 19 emulsionIndications: 2 times a day Keratoconjunctivitis sicca of both eyes due to decreased tear production mirtazapine (REMERON) Take 30 mg by 0 Active 30 mg tablet mouth every night at bedtime VIIBRYD 20 MG tablet Take 20 mg by 0 09/09/19 Active mouth every 19 night at bedtime carbidopa-levodopa Take 1 tablet 180 tablet 3 10/29/19 Active (SINEMET CR) 50-200 mg at 8 pm and 1 19 CR tabletIndications: tablet in the Parkinson's disease middle of the (HCC) night when awake between 11 pm and 3 am dexlansoprazole Take 60 mg by 0 Active (DEXILANT) 60 mg mouth 1 time delayed release capsule per day carbidopa-levodopa Take 1 tablet 0 Active (SINEMET) 25-100 mg by mouth 5 tablet times a day At 6 am, 8:45 am, 11:30 am, 2:15 pm, and 5 pm vitamin D3, Take 10,000 0 Active cholecalciferol, 5000 Units by mouth units tablet 1 time per day potassium 99 MG tablet Take 99 mg by 0 Active mouth 1 time per day diphenhydrAMINE Take 25 mg by 0 Active (BENADRYL) 25 mg mouth at capsule bedtime as needed for insomnia calcium citrate Take 1,900 mg 0 Active (CITRACAL) 950 mg TABS by mouth 1 time per day senna-docusate sodium Take 2 tablets 56 tablet 2 11/18/19 Active (SENOKOT-S;PERICOLACE) by mouth 2 19 8.6-50 MG times a day tabletIndications: S/P revision of total knee, right, S/P revision of total knee, left oxyCODONE (OXY-IR) 10 Take 1-1.5 60 tablet 0 11/18/19 Active mg tabletIndications: tablets (10-15 19 S/P revision of total mg) by mouth knee, right, S/P Every 3 hours revision of total knee, as needed for left moderate pain or severe pain artificial tears Place 1-2 drops 0 11/18/19 Active (SOOTHE XP) SOLN into both eyes 19 ophthalmic solution Every 4 hours as needed flunisolide (NASAREL) [place] 2 sprays 0 11/18/19 Active 25 MCG/ACT (0.025%) into each 19 SOLNIndications: Cough nostril at bedtime as needed for other (Specify) (Rhinitis) furosemide (LASIX) 40 Take 1 tablet 0 11/18/19 Active mg tabletIndications: (40 mg) by 19 Edema, unspecified type mouth 1 time a day as needed for other (Specify) (Edema/Swelling ) mometasone (NASONEX) 50 [place] 2 sprays 0 11/18/19 Active mcg/spray nasal into each 19 sprayIndications: nostril 1 time Central perforation of a day as needed tympanic membrane of for rhinitis left ear lqpbcqva-ngrtuwelr-raoj Place 3 drops 0 11/18/19 Active ocortisone into the left 19 (CORTISPORIN) otic ear 3 times a SUSPENSIONIndications: day as needed Central perforation of for other tympanic membrane of (Specify) left ear (itchy ears) ferrous sulfate (65 MG Take 1 tablet 30 tablet 0 11/18/19 Active FE PER 325 MG TABLET) (325 mg) by 19 325 mg mouth 1 time tabletIndications: per day Anemia, unspecified type senna (SENOKOT) 8.6 MG Take 17.2-34.4 0 11/17/ Discontinued TABS mg by mouth 2018 (Stop Taking every night at at Discharge) bedtime vitamin D3, Take 10,000 0 Discontinued cholecalciferol, 1000 Units by mouth 2018 (entry level manufacturing engineer UNITS tablet 1 time per day error) rivaroxaban (XARELTO) Indications: 90 tablet 3 11/19/1911/14/ Discontinued 20 mg Personal 2018 (entry level manufacturing engineer tabletIndications: History of error) History of Thrombosis Blood Clots TAKE 1 TABLET BY MOUTH ONCE DAILY AT SUPPER furosemide (LASIX) 40 TAKE 1 TABLET 90 tablet 3 11/19/1911/17/ Discontinued mg tabletIndications: BY MOUTH Wednesday (Reorder) Edema, unspecified type THROUGH WEDNESDAY artificial tears Place 1-2 drops 1 Bottle 12 04/29/19 Discontinued (SOOTHE XP) SOLN into both eyes 2018 (Reorder) ophthalmic solution 4 times a day mometasone (NASONEX) 50 [place] 2 sprays 1 Inhaler 12 08/13/1911/17/ Discontinued mcg/spray nasal into each 2018 (Reorder) sprayIndications: nostril 1 time Central perforation of per day tympanic membrane of left ear cashfszc-vknmzhgpt-twkh Place 3 drops 1 Bottle 1 08/13/19 Discontinued ocortisone into the left 2018 (Reorder) (CORTISPORIN) otic ear 3 times a SUSPENSIONIndications: day Central perforation of tympanic membrane of left ear flunisolide (NASAREL) [place] 2 sprays 1 Bottle 4 08/18/19 Discontinued 25 MCG/ACT (0.025%) into each 2018 (Reorder) SOLNIndications: Cough nostril every night at bedtime DEXILANT 60 MG delayed TAKE 1 CAPSULE 90 capsule 3 09/29/19 Discontinued release BY MOUTH ONCE A 2018 (entry level manufacturing engineer capsuleIndications: DAY error) Gastroesophageal reflux disease without esophagitis carbidopa-levodopa Take 2 tablets 900 tablet 3 10/29/1911/14/ Discontinued (SINEMET) 25-100 mg five times a 2018 (entry level manufacturing engineer tabletIndications: day at 6 am, error) Parkinson's disease 8:45 am, 11:30 (HCC) am, 2:15 pm, and 5 pm rivaroxaban (XARELTO) Take 20 mg by 0 11/17/ Discontinued 20 mg tablet mouth 1 time a 2018 (Stop Taking day at supper at Discharge) ibuprofen Take 200-600 mg 0 11/17/ Discontinued (ADVIL;MOTRIN-IB) 200 by mouth every 2018 (Stop Taking mg tablet 4 to 6 hours as at Discharge) needed for mild pain documented as of this encounter (statuses as of 11/17/2018) Active Problems Problem Noted Date Parkinson's disease 03/18/2018 Perforation of left tympanic membrane 03/18/2018 Factor V Leiden mutation 04/09/2017 Anxiety 12/30/2016 Keratoconjunctivitis sicca due to decreased tear production 07/20/2016 Senile nuclear sclerosis 07/20/2016 Myopia 07/20/2016 Regular astigmatism of both eyes 07/20/2016 Presbyopia 07/20/2016 OA (osteoarthritis) 01/01/2015 Myofascial pain 12/13/2014 Pain medication agreement 08/09/2014 Overview: A pain management agreement is on file for this patient. Before prescribing any opioids for this patient, please contact the specialty sales consultant staff at [facility] [address] [place] [phone]. Date Contract Signed: 08/09/2014 Provider managing pain: Calista Whalen CNP Pharmacy: [facility] Encounter for monitoring opioid maintenance therapy 08/09/2014 Osteoarthritis of lumbosacral spine 08/09/2014 Joint pain 08/09/2014 Chronic back pain 08/09/2014 Tremor 01/15/2014 Low back pain 12/23/2011 Severe episode of recurrent major depressive disorder Hx of blood clots Chronic daily headache documented as of this encounter (statuses as of 11/17/2018) Resolved Problems Problem Noted Date Resolved Date Pain medication agreement 08/09/2014 08/09/2014 Overview: A pain management agreement is on file for this patient. Before prescribing any opioids for this patient, please contact the specialty sales consultant staff at [facility] [address] [phone]. Date Contract Signed: 08/09/2014 Provider managing pain: Calista Whalen CNP Pharmacy: Aftercare following surgery of the genitourinary system, [facility] 08/07/201409/04 Acalculous cholecystitis 07/24/2014 09/04/2014 Simple endometrial hyperplasia 07/23/2014 08/07/2014 DVT (deep venous thrombosis) 03/08/2014 03/18/2018 Overview: 1. DVT 12/2010 No known underline cause, on coumadin, recnetly switched to xeralto 2. Tolerating Xorelto, Factor V Leiden + Simple endometrial hyperplasia without atypia 03/06/2014 09/04/2014 Dysfunctional uterine bleeding 01/15/2014 08/07/2014 Ovarian cyst 01/15/2014 09/04/2014 FAITH (obstructive sleep apnea) 10/27/2013 01/28/2017 Overview: PS09/13/2006 AHI: 14.2 Tremor 12/30/2016 documented as of this encounter (statuses as of 11/17/2018) Social History Tobacco Use Types Packs/Day Years Used Date Passive Smoke Exposure - Never Smoker Smokeless Tobacco: Never Used Alcohol Use Drinks/Week oz/Week Comments Yes 1 Cans of beer 1.0 1-2 per month Sexually Active Control Partners Comments Never Sex Assigned at Date Recorded Not on file Job Start Date Occupation Industry Not on file Not on file Not on file Travel History Travel Start Travel End No recent travel history available. documented as of this encounter Last Filed Vital Signs Vital Sign Reading Time Taken Comments Blood Pressure 132/56 11/17/2018 7:33 AM CDT Pulse 102 11/17/2018 7:57 AM CDT Temperature 36.9 C (98.5 F) 11/17/2018 7:33 AM CDT Respiratory Rate 17 11/17/2018 7:33 AM CDT Oxygen Saturation 95% 11/17/2018 7:33 AM CDT Inhaled Oxygen Concentration - - Weight 100.7 kg (222 lb) 11/14/2018 5:57 AM CDT Height 157.5 cm (5' 2") 11/14/2018 5:57 AM CDT Body Mass Index 40.6 11/14/2018 5:57 AM CDT documented in this encounter Functional Status Functional Status Response Date of Assessment Is the person deaf or does he/she have serious difficulty No 11/07/2018 hearing? Is this person blind or does he/she have difficulty Yes 11/07/2018 seeing even when wearing glasses? Do you have difficulty with walking, balance, climbing No 11/07/2018 stairs, or had a fall in the last 3 months? Does the patient have difficulty dressing or bathing? Yes 11/07/2018 Because of a physical, mental, or emotional condition; Yes 11/07/2018 does this person have difficulty doing errands alone such as visiting a doctor's office or shopping? Cognitive Status Response Date of Assessment Because of a physical, mental, or emotional condition; Yes 11/07/2018 does this person have serious difficulty concentrating, remembering, or making decisions? documented as of this encounter Discharge Summaries Amor Guardado MD - 11/17/2018 10:14 AM CDT Hospital Discharge Summary Attending Physician: Titi Farah MD Attending Physician Specialty: Orthopedic Surgery Admit Date: 11/14/2018 Discharge Date: 11/17/18 Primary Care Physician: Carter Tamayo MD Discharge Diagnoses #. Bilateral knee arthroplasty revision, 11/14/2018. #. Anemia. Secondary to blood loss from surgery. Follow-up with PCP. #. Sinus tachycardia. Follow-up with PCP. #. Chronic pain. #. Parkinson's. #. Factor V Leiden mutation. #. Stage II to III chronic kidney disease. #. Anxiety/depression. #. Dry eyes. #. GERD. Hospital Course 58-year-old lady with medical history significant for chronic pain, Parkinson's , anxiety/depression,and hypercoagulable disorder, who was admitted to the hospital for bilateral knee arthroplasty revision. Patient underwent the procedure on 11/14/2018. Postop course was unremarkable. She is discharged on pain meds, laxatives, and home dose of Xarelto, per orthopedics. She'll further follow-up with herPCP. Patient was tachycardic during hospital stay, w/ HR < 110. She reports that she is intermittently tachycardic at baseline. EKG showed sinus rhythm. She' ll further follow-up with her PCP. CODE STATUS was discussed with patient prior to discharge. She wanted to be DNR /DNI. She is alert and oriented and capable of making her own decisions. LABS/INVESTIGATIONS: - Hgb 9.2. Discharged on ferrous sulfate. LabTests Pending at Discharge Follow-Up Scheduled Contact information for follow-up [facility] [address] [place] [address] Next Steps: Follow up Instructions: Staff will provide services and therapies as needed. Facility provider to follow. Please schedule post hospital follow up appointment with PCP, at time of discharge. Carlos Mujica PA Specialty: PA - Orthopedic Surgery [facility] [address] [facility] [id number] Next Steps: Follow up Instructions: Follow up appointment on Dec 06, at 1:15 PM. Preliminary Discharge Medications This list of medications is preliminary and tentative. Please see the After Visit Summary for the final and accurate medication list. Discharge Medication List START taking these medications START: ferrous sulfate 325 mg tablet Commonly known as: 65 mg FE per 325 mg tablet Dose: 325 mg Take 1 tablet (325 mg) by mouth 1 time per day START: oxyCODONE 10 mg tablet Commonly known as: OXY-IR Dose: 10-15 mg Take 1-1.5 tablets (10-15 mg) by mouth Every 3 hours as needed for moderate pain or severe pain START: senna-docusate sodium 8.6-50 MG tablet Commonly known as: SENOKOT-S;PERICOLACE Dose: 2 tablet Take 2 tablets by mouth 2 times a day CONTINUE taking these medications which have CHANGED CONTINUE: XARELTO 20 mg tablet Generic drug: rivaroxaban TAKE 1 TABLET BY MOUTH ONCE DAILY WITH SUPPER What changed: See the new instructions. Another medication with the same name was removed. Continue taking this medication, and follow the directions you see here. CONTINUE taking these medications which have NOT CHANGED CONTINUE: acetaminophen 500 mg tablet Commonly known as: TYLENOL Dose: 1,000 mg Take 1,000 mg by mouth every 6 hours as needed for mild pain CONTINUE: albuterol (2.5 mg/3mL) 0.083% inhalation solution Commonly known as: PROVENTIL Dose: 1 nebule Inhale 1 nebule (2.5 mg) by nebulization 4 times a day as needed for cough CONTINUE: artificial tears Soln ophthalmic solution Dose: 1-[address] 1-2 drops into both eyes Every 4 hours as needed CONTINUE: Biotin 5000 MCG Caps Dose: 5,000 mcg Take 5,000 mcg by mouth 1 time per day CONTINUE: calcium citrate 950 mg Tabs Commonly known as: CITRACAL Dose: 1,900 mg Take 1,900 mg by mouth 1 time per day CONTINUE: * carbidopa-levodopa 25-100 mg tablet Commonly known as: SINEMET Dose: 1 tablet Take 1 tablet by mouth 5 times a day At 6 am, 8:45 am, 11:30 am, 2:15 pm, and 5 pm CONTINUE: * carbidopa-levodopa 50-200 mg CR tablet Commonly known as: SINEMET CR Take 1 tablet at 8 pm and 1 tablet in the middle of the night when awake between 11 pm and 3 am CONTINUE: cycloSPORINE 0.05 % ophthalmic emulsion Commonly known as: RESTASIS Dose: [address] 1 drop into both eyes 2 times a day CONTINUE: dexlansoprazole 60 mg delayed release capsule Commonly known as: DEXILANT Dose: 60 mg Take 60 mg by mouth 1 time per day CONTINUE: diphenhydrAMINE 25 mg capsule Commonly known as: BENADRYL Dose: 25 mg Take 25 mg by mouth at bedtime as needed for insomnia CONTINUE: flunisolide 25 MCG/ACT (0.025%) Soln Commonly known as: NASAREL Dose: 2 spray [place] 2 sprays into each nostril at bedtime as needed for other (Specify) ( Rhinitis) CONTINUE: furosemide 40 mg tablet Commonly known as: LASIX Dose: 40 mg Take 1 tablet (40 mg) by mouth 1 time a day as needed for other (Specify) (Edema /Swelling) CONTINUE: mirtazapine 30 mg tablet Commonly known as: REMERON Dose: 30 mg Take 30 mg by mouth every night at bedtime CONTINUE: miscellaneous oral medication Misc Take by mouth Hemp oil three times per day as directed. CONTINUE: mometasone 50 mcg/spray nasal spray Commonly known as: NASONEX Dose: 2 spray [place] 2 sprays into each nostril 1 time a day as needed for rhinitis CONTINUE: MULTIVITAMIN PO Dose: 1 tablet Take 1 tablet by mouth 1 time per day. CONTINUE: akbuzgsm-hltildego-apezvgtzhumizc otic SUSPENSION Commonly known as: CORTISPORIN Dose: [address] 3 drops into the left ear 3 times a day as needed for other (Specify) ( itchy ears) CONTINUE: potassium 99 MG tablet Dose: 99 mg Take 99 mg by mouth 1 time per day CONTINUE: VIIBRYD 20 mg tablet Generic drug: vilazodone Dose: 20 mg Take 20 mg by mouth every night at bedtime CONTINUE: vitamin D3 (cholecalciferol) 5000 units tablet Dose: 10,000 Units Take 10,000 Units by mouth 1 time per day * This list has 2 medication(s) that are the same as other medications prescribed for you. Read thedirections carefully, and ask your doctor or other care provider to review them with you. You might also be taking other medications not listed above. If you have questions about any of your other medications, talk to the person who prescribed them or your Primary Care Provider. STOP taking these medications STOP: ibuprofen 200 mg tablet Commonly known as: ADVIL;MOTRIN-IB STOP: senna 8.6 MG Tabs Commonly known as: SENOKOT Where to Get Your Medications These medications were sent to [facility] [place] [address] [facility] [id number] [facility] [id number] ferrous sulfate 325 mg tablet XARELTO 20 mg tablet Information about where to get these medications is not yet available Ask your nurse or doctor about these medications oxyCODONE 10 mg tablet senna-docusate sodium 8.6-50 MG tablet Temp: 98.5 F (36.9 C) BP: 132/56 Weight: 100.7 kg (222 lb) SpO2: 95 % Resp: 17 Pulse: 102 Current BMI (>50=increased risk): (!) 40.59 O2 Device: Room Air O2 Flow Rate (L/min): 2 l/min Physical Exam Constitutional: She is oriented to person, place, and time. She appears well- developed. Cardiovascular: Normal rate and regular rhythm. Pulmonary/Chest: Effort normal and breath sounds normal. Abdominal: Soft. Bowel sounds are normal. Neurological: She is alert and oriented to person, place, and time. Psychiatric: She has a normal mood and affect. Procedures Performed and Findings All procedures during admission Procedure(s): RIGHT TOTAL KNEE ARTHROPLASTY REVISION, LEFT KNEE MECHANISM REPAIR Consultations Obtained CASE MANAGEMENT CONSULT CASE MANAGEMENT CONSULT INTERNAL MEDICINE CONSULT Discharge Disposition ADULT Discharge Planning: Swingbed, non-Skilled (5, 23) Instructions for after discharge Contact your doctor if you develop a temperature greater than 101 degrees Contact your doctor if you experience increased pain, numbness, or tingling Contact your doctor if you have any questions in the first week Contact your doctor if you notice any drainage from your incision after 48 hours Contact your doctor if you notice any redness or swelling around your incision ELEVATE EXTREMITY Elevate Left and Right lower extremity for 30 minutes 4 times per day and as needed for swelling FOLLOW UP APPOINTMENT ICE TO AFFECTED AREA Ice to both left and right knee 5 times per day and as needed for swelling and pain. Alternate 20 minutes on and 20 minutes off. Use Polar Care - assess skin every 2 hrs. Do not apply directly on skin. If you have questions or concerns, please call your orthopedic surgeon at the clinic KEEP DRESSING CLEAN/ DRY/ INTACT UNTIL FOLLOW UP APPOINTMENT MAY NOT RETURN TO WORK UNTIL AFTER FOLLOW-UP APPOINTMENT MAY SHOWER - COVER INCISION WITH WATER PROOF DRESSING SO IT DOESN'T GET WET. NO DRIVING No Driving until follow up with your health care provider. NO TUB BATH UNTIL DIRECTED NO USE OF ALCOHOL OR NON PRESCRIPTION DRUGS Please call 911 and seek immediate emergency care if you experience any chest pain or shortness of breath or if you are coughing up blood Resume home diet KAREN STOCKING ON EVERY DAY 1) May take stocking off at night 2) Wear stockings until follow-up appointment WALK FREQUENTLY AND GRADUALLY INCREASE THE DISTANCE YOU ARE WALKING WALK WITH ASSISTIVE DEVICE WEIGHT BEARING STATUS - TOLERATED Medical Decision Making A total of 25 minutes were spent on discharge coordination. documented in this encounter Discharge Instructions Tete Larson RN - 11/14/2018Preventing Blood Clots (Deep Vein Thrombosis) In the days and weeks after surgery, you have a higher chance of developing a deep vein thrombosis (DVT). This is a condition in which a blood clot or thrombus develops in a deep vein. They are most common in the leg. But, a DVT may develop in an arm, or another deep vein in the body. A piece of the clot, called an embolus, can separate from the vein and travel to the lungs. A blood clot in the lungsis called a pulmonary embolus (PE). This can cut off the flow of blood. It is a medical emergency and may cause . Deep vein thrombosis can occur even after you go home. Follow all instructions from your health careprovider. The following are some general guidelines about DVT prevention: Anticoagulant medication. If an anticoagulant was prescribed, make sure you follow all directionsabout taking it. Be sure you know what foods and medicines may interact. Also, ask your health care provider what to do if you forget to take a dose. Compression stockings. Your health care provider will tell you how often to wear and remove the stockings. Follow all instructions closely. Each time you remove your stockings, check your legs and feet for reddened areas or sores. If you see any changes, call your health care provider right away. Returning to activity. Follow all instructions about returning to activities. Be as active as youcan. This improves blood flow and helps prevent a clot from forming. When in bed or in a chair, continue with the ankle exercises you did in the hospital. Elevate your extremity above the level of yourheart to help prevent swelling. Activity ? Walk with walker/crutches full weight bearing as instructed by Physical Therapy. ? Advance to cane as instructed. ? Continue exercises you have been taught. ? Sit in a chair that is safe for your knee-rocking chair is encouraged. ? Physical therapy 3 times a week for 6 weeks If you are going to have your therapy as an outpatient arrive and check in 30 minutes early for first session. Take insurance card and photo ID. ? Do not drive until your Surgeon informs you that you can. ? Lie down 2 times a day in bed for 45-60 minutes. You may elevate your feet on pillows. If swelling occurs lie down in bed 3-4 times a day. ? Ice for knee as needed. ? KAREN hose on during day and off at bedtime for 4-6 weeks or as instructed by Orthopedic Surgeon. Dressing instructions: Cover the dressing with PressNSeal for 14 days - for shower ? Leave knee dressing intact and dry for 14 days after surgery, then okay to remove & discard dressing. ? After dressing is removed, okay to leave knee incision uncovered & okay to shower without covering the incision. ? No lotions, creams, or ointments over the incision until fully healed. ? Soap & water over the incision is okay. ? Leave the skin adhesive mesh on the knee intact for up to 2 weeks. ? When it begins to peel, you may attempt to peel it off completely, or trim the peeling edges with scissors. Dressing instructions: Cover the dressing with PressNSeal for 14 days - for shower Leave the Prevena Plus wound VAC dressing intact & dry. The battery life will last for 7 days, and the unit will need to be recharged for ~2 hours per day. After the VAC battery reaches end-of-life, slide the tubing clamp to the base of the dressing and clamp the tubing. You may cut the tubing beyond the clamp with scissors and discard the VAC in the trash. Leave the VAC dressing intact for the remaining 7 days or until your follow-up appointment with Dr. Farah. If the dressing begins to peel or if the VAC seal is compromised, you may attempt to reinforce the dressing with additional VAC tape or remove the dressing entirely. documented in this encounter Medications at Time of Discharge Medication Sig Dispensed Refills Start Date End Date senna-docusate sodium Take 2 tablets by 56 tablet 2 11/17/2018 (SENOKOT-S;PERICOLACE) mouth 2 times a 8.6-50 MG day tabletIndications: S/P revision of total knee, right, S/P revision of total knee, left oxyCODONE (OXY-IR) 10 mg Take 1-1.5 tablets 60 tablet 0 11/17/2018 tabletIndications: S/P (10-15 mg) by revision of total knee, mouth Every 3 right, S/P revision of hours as needed total knee, left for moderate pain or severe pain artificial tears (SOOTHE Place 1-2 drops 0 11/17/2018 XP) SOLN ophthalmic into both eyes solution Every 4 hours as needed flunisolide (NASAREL) 25 [place] 2 sprays 0 11/17/2018 MCG/ACT (0.025%) into each nostril SOLNIndications: Cough at bedtime as needed for other (Specify) (Rhinitis) furosemide (LASIX) 40 mg Take 1 tablet (40 0 11/17/2018 tabletIndications: Edema, mg) by mouth 1 unspecified type time a day as needed for other (Specify) (Edema/Swelling) mometasone (NASONEX) 50 [place] 2 sprays 0 11/17/2018 mcg/spray nasal into each nostril sprayIndications: Central 1 time a day as perforation of tympanic needed for membrane of left ear rhinitis wycjxelc-fjrrrbprm-szvjeyqt Place 3 drops into 0 11/17/2018 tisone (CORTISPORIN) otic the left ear 3 SUSPENSIONIndications: times a day as Central perforation of needed for other tympanic membrane of left (Specify) (itchy ear ears) ferrous sulfate (65 MG FE Take 1 tablet (325 30 tablet 0 11/17/2018 PER 325 MG TABLET) 325 mg mg) by mouth 1 tabletIndications: Anemia, time per day unspecified type dexlansoprazole (DEXILANT) Take 60 mg by 0 60 mg delayed release mouth 1 time per capsule day carbidopa-levodopa Take 1 tablet by 0 (SINEMET) 25-100 mg tablet mouth 5 times a day At 6 am, 8:45 am, 11:30 am, 2:15 pm, and 5 pm vitamin D3, Take 10,000 Units 0 cholecalciferol, 5000 units by mouth 1 time tablet per day potassium 99 MG tablet Take 99 mg by 0 mouth 1 time per day diphenhydrAMINE (BENADRYL) Take 25 mg by 0 25 mg capsule mouth at bedtime as needed for insomnia calcium citrate (CITRACAL) Take 1,900 mg by 0 950 mg TABS mouth 1 time per day carbidopa-levodopa (SINEMET Take 1 tablet at 8 180 tablet 3 10/28/2018 CR) 50-200 mg CR pm and 1 tablet in tabletIndications: the middle of the Parkinson's disease (HCC) night when awake between 11 pm and 3 am VIIBRYD 20 MG tablet Take 20 mg by 0 09/08/2018 mouth every night at bedtime mirtazapine (REMERON) 30 mg Take 30 mg by 0 tablet mouth every night at bedtime cycloSPORINE (RESTASIS) Place 1 drop into 1 Bottle 6 04/28/2018 0.05 % ophthalmic both eyes 2 times emulsionIndications: a day Keratoconjunctivitis sicca of both eyes due to decreased tear production miscellaneous oral Take by mouth Hemp 0 medication MISC oil three times per day as directed. albuterol (PROVENTIL) (2.5 Inhale 1 nebule 120 nebule 3 11/18/20172018 mg/3mL) 0.083% inhalation (2.5 mg) by solutionIndications: Cough nebulization 4 times a day as needed for cough acetaminophen (TYLENOL) 500 Take 1,000 mg by 0 mg tablet mouth every 6 hours as needed for mild pain Biotin 5000 MCG CAPS Take 5,000 mcg by 0 mouth 1 time per day XARELTO 20 MG TAKE 1 TABLET BY 90 tablet 3 11/16/2018 tabletIndications: MOUTH ONCE DAILY Parkinson's disease (HCC) WITH SUPPER Multiple Vitamins-Minerals Take 1 tablet by 0 (MULTIVITAMIN PO) mouth 1 time per day. documented as of this encounter Progress Notes Amor Guardado MD - 11/16/2018 1:00 PM CDT DAILY PROGRESS NOTE SUMMARY 58-year-old lady with medical history significant for chronic pain, Parkinson's , anxiety/depression,and hypercoagulable disorder, who is admitted to the hospital for bilateral knee arthroplasty revision. Internal medicine is consulted for medical management. ASSESSMENT & PLAN #. Bilateral knee arthroplasty revision, 11/14/2018. - On Tylenol and as needed oxycodone. On MiraLAX, docusate, and senna. On Lovenox for DVT prophylaxis. - Has not had a bowel movement yet. Will try milk of mag today. #. Mild hypomagnesemia. Replace. #. Anemia. Secondary to blood loss from surgery. Labs pending. #. Chronic pain. #. Parkinson's. Continue home dose of Sinemet. #. Factor V Leiden mutation. History of lower extremity DVT, 2010. Xarelto on hold. #. 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 labs pending. #. Anxiety/depression. Continue Viibryd and Remeron. #. Dry eyes. On Restasis. #. GERD. On Dexilant. #. DVT prophylaxis. On Lovenox. Discussed with orthopedics. We will switch to Xarelto at discharge. This note was created, at least in part, with the use of [employer] Voice Dictation System. Inadvertenttypographical errors, due to software recognition problems, may still exist. SUBJECTIVE/ROS No acute events overnight. No new complaints this a.m. Patient is sitting in recliner and appears comfortable. No chest pain. Mild chronic shortness of breath. Taking good oral diet. No nausea. Mild abdomen pain. Passing gas. Has not had a bowel movement yet. Medications oxyCODONE (OXY-IR) tablet 10-15 mg 10-15 mg Oral Every 3 hours prn 15 mg at 11/16/18 1137 magnesium oxide tablet 500 mg 500 mg Oral 2 times a day 500 mg at 11/16/18 0832 docusate sodium (COLACE) capsule 200 mg 200 mg Oral 2 times a day 200 mg at 11/16/18 0837 vitamin c (ascorbic acid) controlled release capsule 1,000 mg 1,000 mg Oral Daily 1,000 mg at 11/16/18 0832 cyanocobalamin (vitamin B-12) (Vitamin B-12) tablet 500 mcg 500 mcg Oral Daily 500 mcg at 11/16/18 0831 folic acid tablet 1 mg 1 mg Oral Daily 1 mg at 11/16/18 0830 ferrous sulfate (65 mg FE per 325 mg tablet) tablet 325 mg 325 mg Oral 2 times a day 325 mg at 11/16/18 0830 vilazodone (VIIBRYD) tablet 20 mg 20 mg Oral at bedtime 20 mg at 11/15/182110 mirtazapine (REMERON) tablet 30 mg 30 mg Oral at bedtime 30 mg at 11/15/182109 dexlansoprazole (DEXILANT) delayed release capsule 60 mg 60 mg Oral daily 60 mg at 11/16/18 06 carbidopa-levodopa (SINEMET) 25-100 mg tablet 1 tablet 1 tablet Oral 5 times a day 1 tablet at 11/16/18 1137 sodium chloride 0.9% flush (adult) 10 mL 10 mL IV 2 times a day and prn 10 mL at 11/16/18 0832 acetaminophen (TYLENOL) tablet 650 mg 650 mg Oral Every 6 hours 650 mg at 11/16/18 1137 senna-docusate sodium (SENOKOT-S;PERICOLACE) tablet 2 tablet 2 tablet Oral 2 times a day 2 tablet at 11/16/18 0836 polyethylene glycol (MIRALAX) packet 1 packet 1 packet Oral Daily 1 packet at 11/16/18 0832 magnesium hydroxide (MILK OF MAGNESIA) oral suspension 30 mL 30 mL Oral 2 times a day prn 30 mLat 11/16/18 0626 bisacodyl (DULCOLAX) enteric coated tablet 5 mg 5 mg Oral 2 times a day prn bisacodyl (DULCOLAX) suppository 10 mg 10 mg Rectal 1 time a day prn 10 mg at 11/15/18 1140 ondansetron (ZOFRAN) injection solution 4 mg 4 mg IV Every 4 hours prn 4 mg at 11/14/18 2136 benzocaine-menthol (CEPACOL w/ BENZOCAINE) lozenge 1 lozenge 1 lozenge Mouth/Throat Every 4 hours prn ceFAZolin (ANCEF) 2000 mg/20 mL sterile water IV syringe 2,000 mg IV Every 8 hours 2,000 mg at 11/16/18 0842 enoxaparin (LOVENOX) subcutaneous injection solution 40 mg 40 mg Subcutaneous Daily 40 mg at 11/16/18 0831 HYDROmorphone (DILAUDID) injection solution (conc: 1 mg/mL) 1 mg 1 mg IV Every 2 hours prn 1 mgat 11/16/18 0512 cycloSPORINE (RESTASIS) 0.05 % ophthalmic emulsion 1 drop 1 drop Both eyes 2 times a day 1 dropat 11/16/18 0831 carbidopa-levodopa (SINEMET CR) 50-200 mg CR tablet 1 tablet 1 tablet Oral daily 1 tablet at 11/15/18 1941 carbidopa-levodopa (SINEMET CR) 50-200 mg CR tablet 1 tablet 1 tablet Oral daily 1 tablet at 11/15/18 2348 OBJECTIVE Current Vital Signs Temp: 98.6 F (37 C) BP: 123/61 Pulse: 112 O2 Device: Room Air O2 Flow Rate (L/min): 2 l/min Resp: 16 Pain Ratin (out of 10) Weight: 100.7 kg (222 lb) SpO2: 95 % Vitals Min/Max Last 24 Hours Vital Signs Min/Max (last 24 hours) Flowsheet Row Name Min Max Temp 98.1 F (36.7 C) 99.4 F (37.4 C) BP: Systolic 123 137 BP: Diastolic 1 86 Pulse 103 112 Resp 16 17 SpO2 91 % 97 % MAP (mm Hg) 91 mm Hg 102 mm Hg Intake and Output Last 24 Hours 11/15 0700 - 11/16 0659 In: - Out: 2000 Lines and Drains Patient Lines/Drains/Airways Status Active Lines Name: Placement date: Placement time: Site: Days: Peripheral IV 11/14/18 Hand Posterior;Right 11/14/18 0640 Hand 2 Negative Pressure Wound Therapy Vacuum 11/14/18 11/14/18 1014 2 Incision 03/26/14 Inner Uterus Extraction 03/26/14 1548 Uterus 1695 Incision 07/23/14 Anterior Abdomen Lap sites 6 07/23/14 Abdomen 1577 Incision 07/23/14 Inner Vagina Incision 07/23/14 Vagina 1577 Incision 11/14/18 Anterior;Right Knee Incision 11/14/18 0730 Knee 2 Incision 11/14/18 Anterior;Left Knee Incision 11/14/18 0956 Knee 2 Physical Exam General Appearance: Well nourished, well hydrated, does not appear to be in acute distress Lungs: No use of accessory muscles of respiration, CTA leatha Heart: tachycardic, no pedal edema. Abdomen: soft, normal BS, non tender Neurological: alert, and answering questions appropriately. Diagnostics and Labs Labs (Last day) No results found within the past day. Amor Porter MD - 11/15/2018 4:05 PM CDT DAILY PROGRESS NOTE SUMMARY 58-year-old lady with medical history significant for chronic pain, Parkinson's , anxiety/depression,and hypercoagulable disorder, who is admitted to the hospital for bilateral knee arthroplasty revision. Internal medicine is consulted for medical management. ASSESSMENT & PLAN #. Bilateral knee arthroplasty revision, 11/14/2018. - On Tylenol and as needed oxycodone. On MiraLAX and senna. On Lovenox for DVT prophylaxis. - Complains of constipation. Will add docusate. #. Mild hypomagnesemia. Replace. #. Anemia. Secondary to blood loss from surgery. Recheck labs in am. #. Chronic pain. #. Parkinson's. Continue home dose of Sinemet. #. Factor V Leiden mutation. History of lower extremity DVT, 2010. Xarelto on hold. #. 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 #. Anxiety/depression. Continue Viibryd and Remeron. #. Dry eyes. On Restasis. #. GERD. On Dexilant. #. DVT prophylaxis. On Lovenox. Discussed with orthopedics. We will switch to Xarelto at discharge. This note was created, at least in part, with the use of [employer] Voice Dictation System. Inadvertenttypographical errors, due to software recognition problems, may still exist. SUBJECTIVE/ROS Patient is sitting up in recliner and appears comfortable at the time of my visit. No chest pain. No shortness of breath. No abdomen pain. Taking oral diet. Had nausea last night. No nausea this morning. Passing some gas. She has been constipated for a few days now. Medications oxyCODONE (OXY-IR) tablet 10-15 mg 10-15 mg Oral Every 3 hours prn 10 mg at 11/15/18 1438 magnesium oxide tablet 500 mg 500 mg Oral 2 times a day docusate sodium (COLACE) capsule 200 mg 200 mg Oral 2 times a day vilazodone (VIIBRYD) tablet 20 mg 20 mg Oral at bedtime 20 mg at 11/14/182023 mirtazapine (REMERON) tablet 30 mg 30 mg Oral at bedtime 30 mg at 11/14/182022 dexlansoprazole (DEXILANT) delayed release capsule 60 mg 60 mg Oral daily 60 mg at 11/15/18 0613 carbidopa-levodopa (SINEMET) 25-100 mg tablet 1 tablet 1 tablet Oral 5 times a day 1 tablet at 11/15/18 1435 sodium chloride 0.9% flush (adult) 10 mL 10 mL IV 2 times a day and prn 10 mL at 11/15/18 0848 sodium chloride 0.9% IV solution IV Continuous Stopped at 11/15/18 0614 acetaminophen (TYLENOL) tablet 650 mg 650 mg Oral Every 6 hours 650 mg at 11/15/18 1139 senna-docusate sodium (SENOKOT-S;PERICOLACE) tablet 2 tablet 2 tablet Oral 2 times a day 2 tablet at 11/15/18 0847 polyethylene glycol (MIRALAX) packet 1 packet 1 packet Oral Daily 1 packet at 11/15/18 0847 magnesium hydroxide (MILK OF MAGNESIA) oral suspension 30 mL 30 mL Oral 2 times a day prn 30 mLat 11/14/18 1400 bisacodyl (DULCOLAX) enteric coated tablet 5 mg 5 mg Oral 2 times a day prn bisacodyl (DULCOLAX) suppository 10 mg 10 mg Rectal 1 time a day prn 10 mg at 11/15/18 1140 ondansetron (ZOFRAN) injection solution 4 mg 4 mg IV Every 4 hours prn 4 mg at 11/14/18 2136 benzocaine-menthol (CEPACOL w/ BENZOCAINE) lozenge 1 lozenge 1 lozenge Mouth/Throat Every 4 hours prn ceFAZolin (ANCEF) 2000 mg/20 mL sterile water IV syringe 2,000 mg IV Every 8 hours 2,000 mg at 11/15/18 0807 enoxaparin (LOVENOX) subcutaneous injection solution 40 mg 40 mg Subcutaneous Daily 40 mg at 11/15/18 0847 HYDROmorphone (DILAUDID) injection solution (conc: 1 mg/mL) 1 mg 1 mg IV Every 2 hours prn 1 mgat 11/15/18 1339 cycloSPORINE (RESTASIS) 0.05 % ophthalmic emulsion 1 drop 1 drop Both eyes 2 times a day 1 dropat 11/15/18 0847 carbidopa-levodopa (SINEMET CR) 50-200 mg CR tablet 1 tablet 1 tablet Oral daily 1 tablet at 11/14/184 carbidopa-levodopa (SINEMET CR) 50-200 mg CR tablet 1 tablet 1 tablet Oral daily 1 tablet at 11/14/18 2315 OBJECTIVE Current Vital Signs Temp: 98.7 F (37.1 C) BP: 155/80 Pulse: 103 O2 Device: Room Air O2 Flow Rate (L/min): 2 l/min Resp: 16 Pain Ratin (out of 10) Weight: 100.7 kg (222 lb) SpO2: 96 % Vitals Min/Max Last 24 Hours Vital Signs Min/Max (last 24 hours) Flowsheet Row Name Min Max Temp 98 F (36.7 C) 98.7 F (37.1 C) BP: Systolic 134 155 BP: Diastolic 64 99 Pulse 97 110 Resp 16 16 SpO2 92 % 99 % O2 Flow Rate (L/min) 2 l/min 2 l/min MAP (mm Hg) 82 mm Hg 110 mm Hg Intake and Output Last 24 Hours 11/14 07 - 11/15 0659 In: 5570 Out: 1860 Lines and Drains Patient Lines/Drains/Airways Status Active Lines Name: Placement date: Placement time: Site: Days: Peripheral IV 11/14/18 Hand Posterior;Right 11/14/18 0640 Hand 1 Negative Pressure Wound Therapy Vacuum 11/14/18 11/14/18 1014 1 Incision 03/26/14 Inner Uterus Extraction 03/26/14 1548 Uterus 1694 Incision 07/23/14 Anterior Abdomen Lap sites 6 07/23/14 Abdomen 1576 Incision 07/23/14 Inner Vagina Incision 07/23/14 Vagina 1576 Incision 11/14/18 Anterior;Right Knee Incision 11/14/18 0730 Knee 1 Incision 11/14/18 Anterior;Left Knee Incision 11/14/18 0956 Knee 1 Physical Exam General Appearance: Well nourished, well hydrated, does not appear to be in acute distress Lungs: No use of accessory muscles of respiration, CTA leatha Heart: normal S1 S2, no pedal edema. Abdomen: soft, normal BS, non tender Neurological: alert, and answering questions appropriately. Diagnostics and Labs Labs (Last day) 11/15/18 0611 - 11/15/18610 CBC 11/15/18610 CBC WBC 4.0-11.0 (K/uL) 10.2 RBC 3.80-5.30 (M/uL) 3.72 Hemoglobin 11.5-15.8 (g/dL) 10.8 Hematocrit 35.0-45.0 (%) 33.2 MCV 80.0-98.0 (fL) 89.2 MCH 25.5-34.0 (pg) 29.0 MCHC 31.5-36.5 (g/dL) 32.5 RDW-CV 11.5-15.5 (%) 14.5 RDW-SD 35.5-50.0 (fl) 45.9 Platelet Count 140-400 (K/uL) 192 MPV 8.5-12.0 (fL) 10.2 11/15/18 0611 - 11/15/18 0611 CHEMISTRY 11/15/18 0611 11/15/18 0611 11/15/18 0611 CHEMISTRY Glucose 70-100 (mg/dL) 127 Sodium 135-145 (meq/L) 137 Potassium 3.5-5.3 (meq/L) 4.6 Chloride 99-110 (meq/L) 102 CO2 20-29 (meq/L) 27 Anion Gap with K 6-20 (meq/L) 13 BUN 6-22 (mg/dL) 10 Creatinine 0.60-1.10 (mg/dL) 1.10 BUN/Creatinine Ratio 10.0-25.0 9.1 Calcium 8.5-10.5 (mg/dL) 8.6 Corrected Calcium 8.5-10.5 (mg/dL) 8.9 Phosphorus 2.5-4.5 (mg/dL) 2.7 Magnesium 1.8-2.4 (mg/dL) 1.7 Bilirubin Total 0.2-1.2 (mg/dL) 0.3 Bilirubin Direct 0.0-0.4 (mg/dL) 0.2 Bilirubin Indirect 0.0-0.8 (mg/dL) 0.1 Alkaline Phosphatase 30-150 (U/L) 69 ALT - SGPT 0-55 (U/L) 15 AST - SGOT 0-35 (U/L) 27 Protein Total 6.0-8.2 (g/dL) 5.8 Albumin 3.5-5.0 (g/dL) 3.6 3.6 eGFR >=60 (mL/min/1.73m2) 62 eGFR Non- >=60 (mL/min/1.73m2) 51 11/15/18 0611 - 11/15/18 0611 OTHER 11/15/18 0611 OTHER Age (Years) 58 Elizabeth Mckoy PA - 11/15/2018 10:41 AM CDT Orthopedic Daily Progress Note Assessment: Penny Peñaloza is a 58yr old female status post Post-Op Diagnosis Codes: * Failed total knee replacement, initial encounter ([facility]) [T84.018A, Z96.659] 1. Status post right total knee arthroplasty revision with extensor mechanism allograft and left total knee arthroplasty revision with extensor mechanism repair secondary to bilateral knee instability and chronic patellar tendon deficiency 11/14/18 2. Acute post-op blood loss anemia 3. Chronic pain 4. Parkinson's disease 5. Factor V Leiden mutation with DVT history 6. Chronic kidney disease stage 2 7. GERD 8. Anxiety/depression 9. Dry eyes Previous Procedures: 02/18/17 Right knee EMR with lateral release per Dr. Reyes 02/02/17 Right TKA revision per Dr. Felton 03/11/[address] Menjivar 05/2014 Left TKA Plan: 1. Pain control 2. Lovenox while in-house, will resume home Xarelto dosing at discharge 3. PT/OT: WBAT bilateral LEs, no ROM right knee, remain in immobilizer at all times, AROM only left knee 4. D/C plan: home vs SNF pending PT goals met and medically stable. May require SNF due to bilateral TKA revisions, limited mobility and need for continued therapies and ADL training 5. Right knee retention sutures to remain intact x 3 weeks. Will need 3 week follow up appointment. Dressing instructions/wound VAC: Leave Prevena Plus VAC dressing intact &dry during the hospital stay. Ok to reinforce with VAC tape or tegaderm as needed. Will keep hooked up to hospital VAC Ulta during the in-house stay, and convert to the battery Prevena unit prior to discharge to home. In-house VAC settings: 125mmHg, Prevena setting Subjective: Patient is noting increased pain this am. Is motivated to work with PT. States hasn't had BM in 3 days. Will have suppository today. Denies fevers/ chills, NV. Objective: BP 155/80 | Pulse 103 | Temp 98.7 F (37.1 C) | Resp 16 | Ht 1.575 m (5' 2") | Wt 100.7 kg (222 lb) | LMP 02/20/2014 | SpO2 96% | ? No | BMI 40.60 kg/m Maximum Temperatures (last 24 hours) Temperature Maximum Max Temp 98.7 F (37.1 C) Intake and Output: 11/14 0700 - 11/15 0659 In: 5570 [Oral:360] Out: 1860 [Urine:900] General: AOx3, NAD. Respirations unlabored. Exam: right lower extremity. Right knee incisional wound vac C/D/I. ~190ml venous output in canister. Immobilizer in place. ROM not assessed due to strict immobilization. Wound was dry. Dressing was not changed. Neurovascular intact. No calf tenderness noted in right lower extremity. EHL/FHL /. Left knee dressing C/D/I with central blood spotting. Tolerates gentle AROM left knee with pain. Dressing was not changed. Neurovascular intact. No calf tenderness noted in right lower extremity. EHL/FHL 5/5. Lab Results Component Value Date WBC 10.2 11/15/2018 RBC 3.72 (L) 11/15/2018 HEMOGLOBIN 10.8 (L) 11/15/2018 HEMATOCRIT 33.2 (L) 11/15/2018 MCV 89.2 11/15/2018 MCH 29.0 11/15/2018 MCHC 32.5 11/15/2018 PLTCOUNT 192 11/15/2018 NEUTROPCT 58.0 03/18/2018 LYMPHSPCT 30.6 03/18/2018 MONOSPCT 9.0 03/18/2018 EOSPCT 1.7 03/18/2018 BASOPHILPCT 0.7 03/18/2018 Lab Results Component Value Date PT 10.1 05/04/2014 INR 0.97 05/04/2014 Micro: 11/14/18 OR cx: Right knee NOS Left knee NOS Labs and xrays were reviewed. Nicole Vaughn, [facility] - 11/14/2018 6:55 AM CDT 11/14/2018 06:55 - Patient was seen by pharmacy. HOME MEDICATIONS have been reconciled and updated tomatch the patient's home usage. Patient's Viibryd and Dexilant were brought to pharmacy to be labeled for use while here. Medications added: Citracal, Ibuprofen, Benadryl, Potassium Medications removed: None Medications changed: Tylenol BID to PRN, Cortisporin TID to PRN, Lasix daily to PRN Medications re-entered: Xarelto, Sinemet Prior to Admission Medications Prescriptions Last Dose Informant Patient Reported? Taking? Biotin 5000 MCG CAPS 11/01/18 MED Bottles or MED List Yes Yes Sig: Take 5,000 mcg by mouth 1 time per day Multiple Vitamins-Minerals (MULTIVITAMIN PO) 11/01/18 MED Bottles or MED List Yes No Sig: Take 1 tablet by mouth 1 time per day. VIIBRYD 20 MG tablet 11/13/2018 at HS MED Bottles or MED List Yes Yes Sig: Take 20 mg by mouth every night at bedtime acetaminophen (TYLENOL) 500 mg tablet Over 1 week Self Yes Yes Sig: Take 1,000 mg by mouth every 6 hours as needed for mild pain albuterol (PROVENTIL) (2.5 mg/3mL) 0.083% inhalation solution Over 1 month Self No Yes Sig: Inhale 1 nebule (2.5 mg) by nebulization 4 times a day as needed for cough artificial tears (SOOTHE XP) SOLN ophthalmic solution Over 1 week Self No Yes Sig: Place 1-2 drops into both eyes 4 times a day Patient taking differently: Place 1-2 drops into both eyes Every 4 hours as needed calcium citrate (CITRACAL) 950 mg TABS 11/01/18 MED Bottles or MED List Yes Yes Sig: Take 1,900 mg by mouth 1 time per day carbidopa-levodopa (SINEMET CR) 50-200 mg CR tablet 11/13/2018 at 2000 MED Bottles or MED List No Yes Sig: Take 1 tablet at 8 pm and 1 tablet in the middle of the night when awake between 11 pm and 3 am carbidopa-levodopa (SINEMET) 25-100 mg tablet 11/14/2018 at 0630 MED Bottles or MED List Yes Yes Sig: Take 1 tablet by mouth 5 times a day At 6 am, 8:45 am, 11:30 am, 2:15 pm, and 5 pm cycloSPORINE (RESTASIS) 0.05 % ophthalmic emulsion 11/13/2018 at HS MED Bottles or MED List No Yes Sig: Place 1 drop into both eyes 2 times a day dexlansoprazole (DEXILANT) 60 mg delayed release capsule 11/14/2018 at 0630 MED Bottles or MED List Yes Yes Sig: Take 60 mg by mouth 1 time per day diphenhydrAMINE (BENADRYL) 25 mg capsule Past month at Unknown time Self Yes Yes Sig: Take 25 mg by mouth at bedtime as needed for insomnia flunisolide (NASAREL) 25 MCG/ACT (0.025%) SOLN Over 1 month. Doesn't need while here Self No Yes Sig: [place] 2 sprays into each nostril every night at bedtime Patient taking differently: [place] 2 sprays into each nostril at bedtime as needed for other (Specify) (Rhinitis) furosemide (LASIX) 40 mg tablet Over 1 week Self No Yes Sig: TAKE 1 TABLET BY MOUTH WEDNESDAY THROUGH WEDNESDAY Patient taking differently: Take 40 mg by mouth 1 time a day as needed for other (Specify) (Edema/Swelling) ibuprofen (ADVIL;MOTRIN-IB) 200 mg tablet Over 1 week Self Yes Yes Sig: Take 200-600 mg by mouth every 4 to 6 hours as needed for mild pain mirtazapine (REMERON) 30 mg tablet 11/13/2018 at HS MED Bottles or MED List Yes Yes Sig: Take 30 mg by mouth every night at bedtime miscellaneous oral medication MISC 11/01/18 Self Yes Yes Sig: Take by mouth Hemp oil three times per day as directed. mometasone (NASONEX) 50 mcg/spray nasal spray Over 1 week. Doesn't need while here Self No Yes Sig: [place] 2 sprays into each nostril 1 time per day Patient taking differently: [place] 2 sprays into each nostril 1 time a day as needed for rhinitis [id number] (CORTISPORIN) otic SUSPENSION Over 1 week. Doesn't need while hereSelf No Yes Sig: Place 3 drops into the left ear 3 times a day Patient taking differently: Place 3 drops into the left ear 3 times a day as needed for other (Specify) (itchy ears) potassium 99 MG tablet 11/01/18 MED Bottles or MED List Yes Yes Sig: Take 99 mg by mouth 1 time per day rivaroxaban (XARELTO) 20 mg tablet 11/10/18 MED Bottles or MED List Yes Yes Sig: Take 20 mg by mouth 1 time a day at supper senna (SENOKOT) 8.6 MG TABS 11/13/2018 at HS MED Bottles or MED List Yes Yes Sig: Take 17.2-34.4 mg by mouth every night at bedtime vitamin D3, cholecalciferol, 5000 units tablet 11/01/18 MED Bottles or MED List Yes Yes Sig: Take 10,000 Units by mouth 1 time per day Facility-Administered Medications: None Nicole Gonzales RP Titi Tucker MD - 11/11/2018 2:24 PM CDTThe risks and benefits of operative intervention explained to and understood by the patient. These were inclusive but not exclusive of deep vein thrombosis, pulmonary embolism, bleeding and transfusion, leg length discrepancy, loss of motion, loss of function, failure of implants, infection, and treatment of infection, neurovascular or bony compromise with insertion and/or removal of implants, and associated medical risks of the operation. Alternative treatments have been discussed. The hope is to lessen pain and improve mobility. We discussed other treatment options previously including intra-articular cortisone injection, continued conservative management, versus arthroplasty. Potential surgeon conflict of interests were also discussed with research and/or development, consulting, and education.Electronically signed by Titi Farah MD at 05/2018 2:24 PM CDTdocumented in this encounter Plan of Treatment Date Type Specialty Care Team Description 12/06/2018 Office Visit Orthopedics Carlos Mujica PA [address] [place] [address] [phone] 02/14/2019 Office Visit Neurology Emmie Hernandez MD [address] [place] [address] [phone] 06/29/2019 Office Visit Neurology Humaira Lehman, [employer]INTE[employer]CE [employer]ER [address] [place] [address] [phone] Name Type Priority Associated Date/Time Diagnoses CULTURE, ACID FAST MICROBIOLOGY REPORT Routine 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 WITH STAIN replacement, AM CDT initial encounter ([facility]) CULTURE FUNGAL, MICROBIOLOGY REPORT Routine Failed total knee 11/14/2018 9 :00 OTHER replacement, AM CDT initial encounter ([facility]) CULTURE FUNGAL, MICROBIOLOGY REPORT Routine Failed total knee 11/14/2018 9 :01 OTHER replacement, AM CDT initial encounter ([facility]) CULTURE BACTERIAL, MICROBIOLOGY REPORT Routine Failed total knee 2018 9:00 ORTHOPEDIC EXTENDED replacement, AM CDT INCUBATION WITH initial encounter GRAM STAIN ([facility]) CULTURE BACTERIAL, MICROBIOLOGY REPORT Routine 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 ORTHOPEDIC EXTENDED replacement, AM CDT INCUBATION WITH initial encounter GRAM STAIN ([facility]) CULTURE, ACID FAST MICROBIOLOGY REPORT Routine Failed total knee 2018 9:58 BACILLUS WITH STAIN replacement, AM CDT initial encounter ([facility]) CULTURE FUNGAL, MICROBIOLOGY REPORT Routine Failed total knee 11/14/2018 9 :58 OTHER replacement, AM CDT initial encounter ([facility]) CULTURE BACTERIAL, MICROBIOLOGY REPORT Routine Failed total knee 2018 9:58 ORTHOPEDIC EXTENDED replacement, AM CDT INCUBATION WITH initial encounter GRAM STAIN ([facility]) Name Type Priority Associated Order Schedule Diagnoses CULTURE FUNGAL, MICROBIOLOGY REPORT Routine Failed total knee ONCE for 1 OTHER replacement, Occurrences starting initial encounter 11/14/2018, 1 ([facility]) completed CULTURE FUNGAL, MICROBIOLOGY REPORT Routine Failed total knee ONCE for 1 OTHER replacement, Occurrences starting initial encounter 11/14/2018, 1 ([facility]) completed CULTURE FUNGAL, MICROBIOLOGY REPORT Routine Failed total knee ONCE for 1 OTHER replacement, Occurrences starting initial encounter 11/14/2018, 1 (HCC) completed documented as of this encounter Implants Implanted Type Area Seismograph Chief Device Shelf Model / Serial / Identifier Expiration Lot Date Allo Btb Ptla Whole Quad 8cm N [id number] Ea - [id number] Bone/Ti Right: MUSCULOSKELETAL 02/28/2019 [id number] / Implanted: Qty: 1 on 11/14/2018 by Titi Farah MD at [facility] ssue/Al KNEE TRANSPLANT FDN [id number] / lograft N/A Description:Verified by Dr. Farah and surgical staff Washer [place] Soft Tiss 14mm N [id number] Ea1 - Sn/A Ortho Other Right: KNEE PINA 05/20/2027 [id number] / Implanted: Qty: 1 on 11/14/2018 by Titi Farah MD at [facility] N/A / [id number] Description:Verified by Dr. Farah and surgical staff. Washer [place] Soft Tiss 14mm N [id number] Ea1 - Sn/A Ortho Other Right: KNEE PINA 06/09/2027 [id number] / Implanted: Qty: 1 on 11/14/2018 by Titi Farah MD at [facility] N/A / [id number] Description:Verified by Dr. Farah and surgical staff. Screw Romeo Slftp 4.5x24mm N 214.824 Ea1 - Sn/A Ortho Other Right: KNEE J&J DEPUY SYNTHES 214.824 / Implanted: Qty: 1 on 11/14/2018 by Titi Farah MD at [facility] N/A / N/A Description:Verified by Dr. Farah and surgical staff. Screw Romeo Slftp Synt 4.5x26mm N 214.826 Ea1 - Sn/A Ortho Other Right: KNEE J&J DEPUY SYNTHES 214.826 / Implanted: Qty: 1 on 11/14/2018 by Titi Farah MD at [facility] N/A / N/A Description:Verified by Dr. Farah and surgical staff. Screw Romeo Slftp 4.5x38mm N 214.838 Ea1 - Sn/A Ortho Other Right: KNEE J&J DEPUY SYNTHES 214.838 / Implanted: Qty: 1 on 11/14/2018 by Titi Farah MD at [facility] N/A / N/A Description:Verified by Dr. Farah and surgical staff. Knee Fem Cone Rt Md 36mm N [id number] Ea - Sn/A Total Jt Knee Right: KNEE PINA 07/09/202346-0163-126-36 / Implanted: Qty: 1 on 11/14/2018 by Titi Farah MD at [facility] N/A / [id number] Description:Verified by Dr. Farah and surgical staff Knee Tib Trabec Cone [id number] N 29-5006-527-46 Ea - Sn/A Total Jt Knee Right: KNEE PINA 10/09/202302-9576-315-46 / Implanted: Qty: 1 on 11/14/2018 by Titi Farah MD at [facility] N/A / [id number] Description:Verified by Dr. Farah and surgical staff Knee Tib Comp Hng Nexgen Sz2 N 87-2358-427-00 Ea - /A Total Jt Knee Right : KNEE PINA 10/09/2023 5880-02 / Implanted: Qty: 1 on 11/14/2018 by Titi Farah MD at [facility] N/A / [id number] Description:Verified by Dr. Farah and surgical staff Knee Tib Insrt Hng [id number] N 32-6999-276-12 Ea - Sn/A Total Jt Knee Right: KNEE PINA 2023 / Implanted: Qty: 1 on 11/14/2018 by Titi Farah MD at [facility] N/A / [id number] Description:Verified by Dr. Farah and surgical staff. Knee Psn [id number] 4-5cd N 06-9612-122-10 Ea1 - Sn/A Total Jt Knee Left : KNEE PINA 08/08/2023 [id number] / Implanted: Qty: 1 on 11/14/2018 by Titi Farah MD at [facility] N/A / [id number] Description:Verified by Dr. Farah and surgical staff. Knee Fem Hng Rotate Rt Szc N 67-6441-259-02 Ea1 - Sn/A Total Jt Knee Right: KNEE PINA 10/09/2023 / Implanted: Qty: 1 on 11/14/2018 by Titi Farah MD at [facility] N/A / [id number] Description:Verified by Dr. Farah and surgical staff Knee Tib Stem Ext St [id number] N 27-4875-976-15 Ea - /A Total Jt Knee Right : KNEE PINA 04/07/2028 5987-11-23 / Implanted: Qty: 1 on 11/14/2018 by Titi Farah MD at [facility] N/A / [id number] Description:Verified by Dr. Farah and surgical staff Knee Fem Diaphysealcone Rtmd30 N 46-8795-965-31 Ea - /A Total Jt Knee Right: KNEE PINA 06/08/202307-9964-464-31 / Implanted: Qty: 1 on 11/14/2018 by Titi Farah MD at [facility] N/A / [id number] Description:Verified by Dr. Farah and surgical staff Knee Tib Stem Ext St [id number] N 42-5730-896-15 Ea - /A Total Jt Knee Right : KNEE PINA 11/07/2028 5988-01-23 / Implanted: Qty: 1 on 11/14/2018 by Titi Farah MD at [facility] N/A / [id number] Description:Verified by Dr. Farah and surgical staff Cormark-04/18/2018 03/23/2019 / Implanted: Qty: 1 on 04/18/2018 by Moo Arias MD / [id number] Securmark-04/18/2018 05/12/2018 / Implanted: Qty: 1 on 04/18/2018 by Moo Arias MD / [id number] Cmnt Bone Cmnt-R W Gentamicin N [id number] Ea1 - Sn/A Right: KNEE PINA 08/07/2020 [id number] / Implanted: Qty: 1 on 11/14/2018 by Titi Farah MD at [facility] N/A / [id number] Description:Verified by Dr. Farah and surgical staff. Cmnt Bone Cmnt-R W Gentamicin N [id number] Ea1 - [id number] Right: KNEE PINA 08/07/2020 [id number] / Implanted: Qty: 1 on 11/14/2018 by Titi Farah MD at [facility] / [id number] Description:Verified by Dr. Farah and surgical staff. documented as of this encounter Procedures Procedure Name Priority Date/Time Associated Comments Diagnosis HEMOGLOBIN Routine 11/16/2018 1:53 Results for this PM CDT procedure are in the results section. BASIC METABOLIC PANEL Routine 11/16/2018 1:53 Results for this PM CDT procedure are in the results section. EKG Routine 11/16/2018 1:02 Results for this PM CDT procedure are in the results section. COMPLETE BLOOD COUNT Routine 11/15/2018 6:11 Results for this WITHOUT DIFFERENTIAL AM CDT procedure are in the results section. HEPATIC FUNCTION Routine 11/15/2018 6:11 Results for this PANEL AM CDT procedure are in the results section. MAGNESIUM Routine 11/15/2018 6:11 Results for this AM CDT procedure are in the results section. RENAL FUNCTION PANEL Routine 11/15/2018 6:11 Results for this AM CDT procedure are in the results section. XRAY KNEE 1-2 VIEWS Routine 11/14/2018 11:48 Results for this LT AM CDT procedure are in the results section. XRAY KNEE 1-2 VIEWS Routine 11/14/2018 11:47 Results for this RT AM CDT procedure are in the results section. 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 Refuses blood products (Hoahaoism ) . Pt states she cannot walk. can transfer from chair to bed only. T&S on admit LAB ONLY-[facility] Routine 11/14/2018 6:05 AM CDT TYPE AND SCREEN Routine 11/14/2018 5:59 AM CDT POTASSIUM STAT 11/14/2018 5:59 AM CDT documented in this encounter Results BASIC METABOLIC PANEL (11/16/2018 1:53 PM CDT) [facility] Glucose 129 (H) 70 - 100 mg/dL [facility] BUN 11 6 - 22 mg/dL [facility] Creatinine 1.04 0.60 - 1.10 [facility] mg/dL [facility] BUN/Creatinine Ratio 10.6 10.0 - 25.0 [facility] Sodium 137 135 - 145 meq/L [facility] Potassium 4.8 3.5 - 5.3 meq/L [facility] Chloride 98 (L) 99 - 110 meq/L [facility] CO2 31 (H) 20 - 29 meq/L [facility] Anion Gap with K 13 6 - 20 meq/L [facility] Calcium 9.0 8.5 - 10.5 mg/dL [facility] Age 58 Years [facility] eGFR Non- 55 (L) >=60 [facility] [place] mL/min/1.73m2 [facility] eGFR 66 >=60 [facility] mL/min/1.73m2 [facility] Specimen Blood Performing Organization Address City/[facility]/Zipcode Phone Number [facility] [address] [place] [address] HEMOGLOBIN (11/16/2018 1:53 PM CDT) [facility] Hemoglobin 9.2 (L) 11.5 - 15.8 g/dL [facility] Specimen Blood Performing Organization Address City/[facility]/Zipcode Phone Number [facility] [address] [place] [address] EKG (11/16/2018 1:02 PM CDT) [facility] EKG WAVEFORM [employer]ACEM[employer]BE [employer] Normal sinus rhythm Normal ECG poor data quality of previous EKG-s prevent comparison Ventricular Rate: 95 BPM Atrial Rate: 95 BPM P-R Interval: 150 ms QRS Duration: 84 ms Q-T Interval: 362 ms QTc Calculation(Bazett): 454 ms Calculated P Aspen: 54 degrees Calculated R Aspen: -22 degrees Calculated T Aspen: 62 degrees Specimen Narrative Performed At Performing Organization Address [facility] Phone Number [facility] HEPATIC FUNCTION PANEL (11/15/2018 6:11 AM CDT) [facility] Alkaline Phosphatase 69 30 - 150 U/L [facility] AST - SGOT 27 0 - 35 U/L [facility] ALT - SGPT 15 0 - 55 U/L [facility] Bilirubin Total 0.3 0.2 - 1.2 mg/dL [facility] Bilirubin Indirect 0.1 0.0 - 0.8 mg/dL [facility] Bilirubin Direct 0.2 0.0 - 0.4 mg/dL [facility] Albumin 3.6 3.5 - 5.0 g/dL [facility] Protein Total 5.8 (L) 6.0 - 8.2 g/dL [facility] Specimen Blood Performing Organization Address [facility] Phone Number [facility] [address] [place] [address] MAGNESIUM (11/15/2018 6:11 AM CDT) [facility] Magnesium 1.7 (L) 1.8 - 2.4 mg/dL [facility] Specimen Blood Performing Organization Address [facility] Phone Number [facility] [address] [place] [address] RENAL FUNCTION PANEL (11/15/2018 6:11 AM CDT) [facility] Glucose 127 (H) 70 - 100 mg/dL [facility] BUN 10 6 - 22 mg/dL [facility] Creatinine 1.10 0.60 - 1.10 mg/[facility] BUN/Creatinine Ratio 9.1 (L) 10.0 - 25.0 [facility] Sodium 137 135 - 145 meq/L [facility] Potassium 4.6 3.5 - 5.3 meq/L [facility] Chloride 102 99 - 110 meq/L [facility] CO2 27 20 - 29 meq/L [facility] Anion Gap with K 13 6 - 20 meq/L [facility] Calcium 8.6 8.5 - 10.5 mg/dL [facility] Phosphorus 2.7 2.5 - 4.5 mg/dL [facility] Albumin 3.6 3.5 - 5.0 g/dL [facility] Corrected Calcium 8.9 8.5 - 10.5 mg/dL [facility] Age 58 Years [facility] eGFR Non- 51 (L) >=60 [facility] mL/min/1.73m2 [facility] eGFR 62 >=60 mL/min/1.73m2 [facility] Specimen Blood Performing Organization Address [facility] Phone Number [facility] [address] [place], [place] [address] COMPLETE BLOOD COUNT WITHOUT DIFFERENTIAL (11/15/2018 6:11 AM CDT) WBC 10.2 4.0 - 11.0 K/uL [facility] RBC 3.72 (L) 3.80 - 5.30 M/uL [facility] Hemoglobin 10.8 (L) 11.5 - 15.8 g/dL [facility] Hematocrit 33.2 (L) 35.0 - 45.0 % [facility] MCV 89.2 80.0 - 98.0 fL [facility] MCH 29.0 25.5 - 34.0 pg [facility] MCHC 32.5 31.5 - 36.5 g/dL [facility] RDW-CV 14.5 11.5 - 15.5 % [facility] RDW-SD 45.9 35.5 - 50.0 fl [facility] Platelet Count 192 140 - 400 K/uL [facility] MPV 10.2 8.5 - 12.0 fL [facility] Specimen Blood Performing Organization Address [facility] Phone Number [facility] [address] [place], [place] [address] XRAY KNEE 1-2 VIEWS LT (11/14/2018 11:48 AM CDT) Specimen Narrative Performed At [facility] Patient Name: PENNY PEÑALOZA Date of :1960 Procedure: XRAY KNEE 1-2 VIEWS LT Date of Service: 11/14/2018 EXAM: XRAY KNEE 1-2 VIEWS LT INDICATION: sp left TKA revision COMPARISON: 09/16/2018 TECHNIQUE: 2 view left knee FINDING/IMPRESSION: Interval left total knee arthroplasty revision. Postoperative soft tissue swelling and gas is present. No evidence for immediate complication. Finalized by: Anthony Moraes MD on 11/14/2018 12:20 PM CDT Patient/Procedure Information: [facility] MRN/PEE: [id number] Order Number: [id number] Accession Number: [id number] Ordering Provider: ELIZABETH VELÁZQUEZ Authorizing Provider: ELIZABETH VELÁZQUEZ Procedure Note Interface, Radiantres - 11/14/2018 12:22 PM CDT Patient Name: PENNY PEÑALOZA Date of : 1960 Procedure: XRAY KNEE 1-2 VIEWS LT Date of Service: 11/14/2018 EXAM: XRAY KNEE 1-2 VIEWS LT INDICATION: sp left TKA revision COMPARISON: 09/16/2018 TECHNIQUE: 2 view left knee FINDING/IMPRESSION: Interval left total knee arthroplasty revision. Postoperative soft tissue swelling and gas is present. No evidence for immediate complication. Finalized by: Anthony Moraes MD on 11/14/2018 12:20 PM CDT Patient/Procedure Information: [facility] MRN/PEE: [id number] Order Number: [id number] Accession Number: [id number] Ordering Provider: ELIZABETH VELÁZQUEZ Authorizing Provider: ELIZABETH VELÁZQUEZ Performing Organization Address City/State/Zipcode Phone Number [id number] XRAY KNEE 1-2 VIEWS RT (11/14/2018 11:47 AM CDT) Specimen Narrative Performed At [facility] Patient Name: PENNY PEÑALOZA Date of :1960 Procedure: XRAY KNEE 1-2 VIEWS RT Date of Service: 11/14/2018 EXAM: XRAY KNEE 1-2 VIEWS RT INDICATION: sp right TKA revision COMPARISON: 09/16/2018 TECHNIQUE: 2 view right knee FINDING/IMPRESSION: Patient is status post right total knee arthroplasty revision. Postoperative soft tissue swelling and gas is present. Alignment is near-anatomic. Finalized by: Anthony Moraes MD on 11/14/2018 12:21 PM CDT Patient/Procedure Information: [facility] MRN/PEE: [id number] Order Number: [id number] Accession Number: [id number] Ordering Provider: ELIZABETH VELÁZQUEZ Authorizing Provider: ELIZABETH VELÁZQUEZ Procedure Note Interface, Radiantres - 11/14/2018 12:23 PM CDT Patient Name: PENNY PEÑALOZA Date of : 1960 Procedure: XRAY KNEE 1-2 VIEWS RT Date of Service: 11/14/2018 EXAM: XRAY KNEE 1-2 VIEWS RT INDICATION: sp right TKA revision COMPARISON: 09/16/2018 TECHNIQUE: 2 view right knee FINDING/IMPRESSION: Patient is status post right total knee arthroplasty revision. Postoperative soft tissue swelling and gas is present. Alignment is near-anatomic. Finalized by: Anthony Moraes MD on 11/14/2018 12:21 PM CDT Patient/Procedure Information: [facility] MRN/PEE: [id number] Order Number: [id number] Accession Number: [id number] Ordering Provider: ELIZABETH VELÁZQUEZ Authorizing Provider: ELIZABETH VELÁZQUEZ Performing Organization Address [facility] Phone Number [id number] LAB ONLY-[facility] (11/14/2018 6:05 AM CDT) ABO Type A [facility] Rh Type Positive [facility] Specimen Blood Performing Organization Address City/[facility] Phone Number [facility] [address] [place] [address] POTASSIUM (11/14/2018 5:59 AM CDT) Potassium 4.0 3.5 - 5.3 meq/L [facility] Specimen Blood Performing Organization Address [facility]/Zipcode Phone Number [facility] [address] [place] [address] TYPE AND SCREEN (11/14/2018 5:59 AM CDT) ABO Type A [facility] Rh Type Positive [facility] Antibody Screen Negative [facility] Comment: [facility] Allogenic Red Cells Available 11/14/18 Expiration Date 11/17/2018 23:59 [facility] Specimen Blood Performing Organization Address City/State/Zipcode Phone Number [facility] [address] [place] [address] documented in this encounter Visit Diagnoses Diagnosis S/P revision of total knee, right - Primary Failed total knee replacement, initial encounter ([facility]) S/P revision of total knee, left Cough Edema, unspecified type Central perforation of tympanic membrane of left ear Central perforation of tympanic membrane Anemia, unspecified type documented in this encounter Discharge Diagnoses Not on filedocumented in this encounter Administered Medications Medication Order MAR Action Action Date Dose Rate Site acetaminophen (TYLENOL) tablet Given 11/17/2018 6:40 AM CDT 650 mg 650 mg 650 mg, Oral, Every six hours, First dose on Wed11/14/18 at 1255, Until Discontinued, Post - Op, Total dose of acetaminophen from all acetaminophen containing products should not exceed 4 grams (4000 mg) per day., Given 11/17/2018 12:17 AM CDT 650 mg Given 11/16/2018 6:40 PM CDT 650 mg bisacodyl (DULCOLAX) enteric coated tablet 5 Given 11/16/2018 8:44 PM CDT 5 mg mg 5 mg, Oral, Two times a day prn, Starting Wed11/14/18 at 1250, Until Discontinued, constipation, Post - Op, SECOND choice or per patient preference, bisacodyl (DULCOLAX) suppository 10 mg Given 11/15/2018 11:40 AM CDT 10 mg 10 mg, Rectal, One time a day prn, Starting Wed11/14/18 at 1250, Until Discontinued, constipation, Post - Op, THIRD choice or per patient preference. If patient cannot take oral medications, use first for constipation., carbidopa-levodopa (SINEMET CR) 50-200 mg Given 11/16/2018 8:44 PM CDT 1 tablet CR tablet 1 tablet 1 tablet, Oral, DAILY, First dose on Wed11/14/18 at 2000, Until Discontinued, Patient takes at 2000, Tablet may be broken in half, but should not be crushed or chewed., Given 11/15/2018 7:41 PM CDT 1 tablet Given 11/14/2018 8:24 PM CDT 1 tablet carbidopa-levodopa (SINEMET CR) 50-200 mg Given 11/17/2018 12:16 AM CDT 1 tablet CR tablet 1 tablet 1 tablet, Oral, DAILY, First dose on Wed11/15/18 at 0000, Until Discontinued, Patient takes dose between 11pm and 3am when awake in middle of night Tablet may be broken in half, but should not be crushed or chewed., Given 11/15/2018 11:48 PM CDT 1 tablet Given 11/14/2018 11:15 PM CDT 1 tablet carbidopa-levodopa (SINEMET) 25-100 mg Given 11/17/2018 7:52 AM CDT 1 tablet tablet 1 tablet 1 tablet, Oral, Five times a day, First dose on Wed11/14/18 at 1415, Until Discontinued, Patient takes 1 tablet by mouth 5 times a day At 6 am, 8:45 am, 11:30 am, 2:15 pm, and 5 pm , Given 11/17/2018 6:40 AM CDT 1 tablet Given 11/16/2018 4:57 PM CDT 1 tablet ceFAZolin (ANCEF) 2000 mg/20 mL sterile Given 11/17/2018 8:24 AM CDT 2,000 mg water IV syringe 2,000 mg, IV, Every eight hours, First dose on Wed11/14/18 at 1600, Until Discontinued, 20 mL, PACU - Continue Post-Op, Administer as IV push over 4 minutes., Given 11/17/2018 12:16 AM CDT 2,000 mg Given 11/16/2018 4:57 PM CDT 2,000 mg cyanocobalamin (vitamin B-12) (Vitamin Given 11/17/2018 7:52 AM CDT 500 mcg B-12) tablet 500 mcg 500 mcg, Oral, Daily, First dose on Wed11/15/18 at 1630, Until Discontinued Given 11/16/2018 8:31 AM CDT 500 mcg Given 11/15/2018 5:55 PM CDT 500 mcg cycloSPORINE (RESTASIS) 0.05 % ophthalmic Given 11/17/2018 7:52 AM CDT 1 drop emulsion 1 drop 1 drop, Both eyes, Two times a day, First dose on Wed11/14/18 at 2100, Until Discontinued Given 11/16/2018 8:45 PM CDT 1 drop Given 11/16/2018 8:31 AM CDT 1 drop dexlansoprazole (DEXILANT) delayed release Given 11/17/2018 6:40 AM CDT 60 mg capsule 60 mg 60 mg, Oral, DAILY, First dose on Wed11/15/18 at 0700, Until Discontinued, Do NOT crush, break, or open the capsule. Take the pill whole. Take capsule with a full glass of water., Patient s own medication has been identified by Pharmacist and approved for hospital use by hospital policy., , Given 11/16/2018 6:26 AM CDT 60 mg Given 11/15/2018 6:13 AM CDT 60 mg docusate sodium (COLACE) capsule 200 mg Given 11/17/2018 7:56 AM CDT 200 mg 200 mg, Oral, Two times a day, First dose on Wed11/15/18 at 1605, Until Discontinued, Swallow cap whole. Should not be crushed or chewed., Given 11/16/2018 8:44 PM CDT 200 mg Given 11/16/2018 8:37 AM CDT 200 mg enoxaparin (LOVENOX) Given 11/17/2018 7:52 AM 40 mg Left Lower Abdomen subcutaneous injection CDT Subcutaneous solution 40 mg 40 mg, Subcutaneous, Daily, First dose on Wed11/15/18 at 0900, Until Discontinued, To avoid the loss of drug when using the 30 mg and 40 mg prefilled syringes, do not expel the air bubble from the syringe before the injection. Administration should be alternated between the left and right anterolateral and left and right posterolateral abdominal wall. The whole length of the needle should be introduced into a skin fold held between the thumb and forefinger; the skin fold should be held throughout the injection. To minimize bruising, do not rub the injection site after completion of the injection., Given 11/16/2018 8:31 AM CDT 40 mg Left Lower Abdomen Subcutaneous Given 11/15/2018 8:47 AM CDT 40 mg ferrous sulfate (65 mg FE per 325 mg tablet) Given 11/17/2018 7:52 AM CDT 325 mg tablet 325 mg 325 mg, Oral, Two times a day, First dose on Wed11/15/18 at 2100, Until Discontinued Given 11/16/2018 8:44 PM CDT 325 mg Given 11/16/2018 8:30 AM CDT 325 mg folic acid tablet 1 mg Given 11/17/2018 7:52 AM CDT 1 mg 1 mg, Oral, Daily, First dose on Wed11/16/18 at 0900, Until Discontinued Given 11/16/2018 8:30 AM CDT 1 mg HYDROmorphone (DILAUDID) injection solution Given 11/16/2018 5:12 AM CDT 1 mg (conc: 1 mg/mL) 1 mg 1 mg, IV, Every two hours prn, Starting Wed11/14/18 at 1250, Until Discontinued, severe pain, 1 mL, If pain unrelieved with PO medication, Given 11/15/2018 1:39 PM CDT 1 mg Given 11/15/2018 2:34 AM CDT 1 mg magnesium hydroxide (MILK OF MAGNESIA) oral Given 11/16/2018 1:15 PM CDT 30 mL suspension 30 mL 30 mL, Oral, Two times a day prn, Starting Wed11/14/18 at 1250, Until Discontinued, constipation, 30 mL, Post - Op, FIRST choice or per patient preference. Exception: Nephrology/renal patients, Given 11/16/2018 6:26 AM CDT 30 mL Given 11/14/2018 2:00 PM CDT 30 mL magnesium oxide tablet 500 mg Given 11/17/2018 7:52 AM CDT 500 mg 500 mg, Oral, Two times a day, First dose on Wed11/15/18 at 2100, Until Discontinued Given 11/16/2018 8:44 PM CDT 500 mg Given 11/16/2018 8:32 AM CDT 500 mg mirtazapine (REMERON) tablet 30 mg Given 11/16/2018 8:44 PM CDT 30 mg 30 mg, Oral, Bedtime, First dose on Wed11/14/18 at 2100, Until Discontinued Given 11/15/2018 9:10 PM CDT 30 mg Given 11/14/2018 8:23 PM CDT 30 mg ondansetron (ZOFRAN) injection solution 4 mg Given 11/14/2018 9:36 PM CDT 4 mg 4 mg, IV, Every four hours prn, Starting Wed11/14/18 at 1109, Until Discontinued, nausea, vomiting, 2 mL, PACU - Continue Post-Op, Use first for nausea. If ineffective after 15 minutes use promethazine. If preference is to further dilute for IV administration: First draw up patient-specific dose, then dilute to 10 mL with 0.9% sodium chloride., oxyCODONE (OXY-IR) tablet 10-15 mg Given 11/17/2018 7:57 AM CDT 15 mg 10-15 mg, Oral, Every three hours prn, Starting Wed11/15/18 at 0856, Until Discontinued, moderate pain, severe pain, Post - Op, For patients with moderate pain, pain rating of 4-6, give Oxycodone 10mg PO every 3 hours PRN. For patients with severe pain, pain rating of 7-10, give Oxycodone 15mg PO every 3 hours PRN., Given 11/17/2018 4:22 AM CDT 15 mg Given 11/17/2018 12:17 AM CDT 10 mg polyethylene glycol (MIRALAX) packet 1 Given 11/17/2018 7:52 AM CDT 1 packet packet 1 packet, Oral, Daily, First dose on Wed11/15/18 at 0900, Until Discontinued, Post - Op, Hold if 2 loose stools occur in the last 24 hours., Given 11/16/2018 8:32 AM CDT 1 packet Given 11/15/2018 8:47 AM CDT 1 packet senna-docusate sodium Given 11/17/2018 7:57 AM CDT 2 tablets (SENOKOT-S;PERICOLACE) tablet 2 tablet 2 tablet, Oral, Two times a day, First dose on Wed11/14/18 at 2100, Until Discontinued, Post - Op, Hold if 2 loose stools occur in the last 24 hours., Given 11/16/2018 8:44 PM CDT 2 tablets Given 11/16/2018 8:36 AM CDT 2 tablets sodium chloride 0.9% flush (adult) 10 mL Given 11/17/2018 7:57 AM CDT 10 mL 10 mL, IV, Two times a day and prn, First dose on Wed11/14/18 at 2100, Until Discontinued, 10 mL, Post - Op, Flush IV line as scheduled and as often as necessary before and after meds., Given 11/16/2018 8:44 PM CDT 10 mL Given 11/16/2018 8:32 AM CDT 10 mL vilazodone (VIIBRYD) tablet 20 mg Given 11/16/2018 8:44 PM CDT 20 mg 20 mg, Oral, Bedtime, First dose on Wed11/14/18 at 2100, Until Discontinued, Take with food., Patient s own medication has been identified by Pharmacist and approved for hospital use by hospital policy., , Given 11/15/2018 9:11 PM CDT 20 mg Given 11/14/2018 8:24 PM CDT 20 mg vitamin c (ascorbic acid) controlled Given 11/17/2018 7:52 AM CDT 1,000 mg release capsule 1,000 mg 1,000 mg, Oral, Daily, First dose on Wed11/15/18 at 1630, Until Discontinued Given 11/16/2018 8:32 AM CDT 1,000 mg Given 11/15/2018 5:54 PM CDT 1,000 mg Medication Order MAR Action Action Date Dose Rate Site acetaminophen (TYLENOL) tablet Given 11/14/2018 6:20 AM CDT 1,000 mg 1,000 mg 1,000 mg, Oral, Pre-op, 1 dose, Wed11/14/18 at 0540, Pre - Op, Total dose of acetaminophen from all acetaminophen containing products should not exceed 4 grams (4000 mg) per day., fentaNYL 100 mcg/2 mL preservative free Given 11/14/2018 12:06 PM CDT 50 mcg injection solution 50 mcg 50 mcg, IV, Every five minutes prn, 6 doses, Starting Wed11/14/18 at 1037, Until Wed11/14/18 at 1238, moderate pain, severe pain, 2 mL, PACU, For pain scale 4 to 6 or pain not relieved by medications for pain Scale 1 - 3 or for pain scale 7 or greater or pain not relieved by medications for pain scale 4 to 6 Max 300 mcg total accumulated dose. Use only anesthesia's orders for moderate/severe pain while in PACU or recovery care, Given 11/14/2018 11:59 AM CDT 50 mcg lactated ringers IV solution New Bag 11/14/2018 7:46 AM CDT IV, at 25 mL/hr, Continuous, Starting Wed11/14/18 at 0645, Until Wed11/14/18 at 1037, 1,000 mL, Pre - Op New Bag/Tubing 11/14/2018 6:40 AM CDT 25 mL/hr lidocaine PF (XYLOCAINE-MPF) Given 11/14/2018 6:40 AM CDT 0.2 mL Right Hand Top IV 1 % preservative free injection solution 0.1-0.3 mL 0.1-0.3 mL, Intradermal, Pre-op, 1 dose, Wed11/14/18 at 0645, 2 mL, Pre - Op, IV start, oxyCODONE (OXY-IR) tablet 5-10 mg Given 11/15/2018 7:35 AM CDT 10 mg 5-10 mg, Oral, Every three hours prn, Starting Wed11/14/18 at 1250, Until Wed11/15/18 at 0857, moderate pain, severe pain, Post - Op, For patients with moderate pain, pain rating of 4-6, give Oxycodone 5mg PO every 3 hours PRN. For patients with severe pain, pain rating of 7-10, give Oxycodone 10mg PO every 3 hours PRN., Given 11/15/2018 4:04 AM CDT 10 mg Given 11/15/2018 1:02 AM CDT 10 mg sodium chloride 0.9% IV Already Infusing 11/14/2018 11:08 AM CDT 125 mL/ hr solution IV, at 125 mL/hr, Continuous, Starting Wed11/14/18 at 1140, Until Wed11/14/18 at 1238, 1,000 mL, PACU, TKO current fluids if patient is going to Day Unit / ARU and tolerating PO fluids without nausea., sodium chloride 0.9% IV solution New Bag 11/14/2018 9:16 PM CDT 125 mL/hr IV, at 125 mL/hr, Continuous, Starting Wed11/14/18 at 1255, Until Wed11/16/18 at 1251, 1,000 mL, Post - Op New Bag 11/14/2018 1:13 PM CDT 125 mL/hr documented in this encounter
[2018-11-30] MEDS ORDERED: Polyethylene Glycol 3350 Powder 17 GM Packet PO SCH (09:00)
[2018-11-30] MEDS: Polyethylene Glycol 3350 Powder 17 GM Packet PO SCH (09:27)
[2018-11-30] MEDS: Ferrous Sulfate 325 MG Tab PO SCH (09:28)
[2018-11-30] MEDS: Biotin 5 MG Cap PO SCH (09:28)
[2018-11-30] MEDS: Calcium Carbonate 500 MG Tablet PO SCH (09:28)
[2018-11-30] MEDS: Multivitamin Tab PO SCH (09:29)
[2018-11-30] MEDS: Cholecalciferol (Vitamin D3) 25 MCG Tab PO SCH (09:29)
[2018-11-30] MEDS: Acetaminophen 650 MG Tab.ER PO SCH ×2 (09:29→21:10)
[2018-11-30] MEDS: cycloSPORINE Ophth Drops U/D Box of 30 EYEBOTH SCH ×2 (09:32→21:08)
--- NOTE | 2018-11-30 12:07 | PN ---
DATE SEEN: 11/30/2018 Penny Kaiser is a 58-year-old female, in swing bed. Had bilateral total knee arthroplasty. Wound on the right not examined. Wound VAC in place, nonfunctioning. Doing otherwise well. Vital signs are stable. Patient was comfortable. Pain is controlled comfortably. /[id number] JULIAN/ABHIJEET
[2018-11-30] MEDS: oxyCODONE 5 MG Tab PO PRN ×2 (12:41→18:26)
[2018-11-30] MEDS: Mirtazapine 30 MG Tab PO SCH (21:08)
[2018-11-30] MEDS: Carbidopa/Levodopa 50-200 MG Tab.ER PO SCH (21:09)
[2018-11-30] MEDS: Vilazodone 20 MG Tab PO SCH (21:10)
[2018-12-01] MEDS: Carbidopa/Levodopa 25-100 MG Tab PO SCH ×5 (06:19→16:54)
[2018-12-01] MEDS: Pantoprazole 40 MG Tab.CR PO SCH (06:43)
[2018-12-01] MEDS: cycloSPORINE Ophth Drops U/D Box of 30 EYEBOTH SCH ×2 (08:20→21:23)
[2018-12-01] MEDS: Ferrous Sulfate 325 MG Tab PO SCH (08:21)
[2018-12-01] MEDS: Cholecalciferol (Vitamin D3) 25 MCG Tab PO SCH (08:21)
[2018-12-01] MEDS: Biotin 5 MG Cap PO SCH (08:21)
[2018-12-01] MEDS: Calcium Carbonate 500 MG Tablet PO SCH (08:21)
[2018-12-01] MEDS: Multivitamin Tab PO SCH (08:22)
[2018-12-01] MEDS: Acetaminophen 650 MG Tab.ER PO SCH ×2 (08:22→21:24)
[2018-12-01] MEDS: Polyethylene Glycol 3350 Powder 17 GM Packet PO SCH (08:26)
--- NOTE | 2018-12-01 11:31 | PN ---
DATE SEEN: 12/01/2018 SUBJECTIVE: Penny Kaiser is a 58-year-old female, in swing bed. Bilateral total knee arthroplasty revisions. Right leg nonvisible, bulky dressing and nonfunctioning wound VAC in place. The patient is doing better. Ambulating better. OBJECTIVE: VITAL SIGNS: Stable. EXTREMITIES: Left wound was examined today without issue. Right leg was examined. Bulky dressing in place without conflict. ASSESSMENT: Bilateral new knees, under repair. PLAN: Physical therapy present treatment. Upcoming visit with Ortho middle of next week. /[id number] /ABHIEJET
[2018-12-01] MEDS: oxyCODONE 5 MG Tab PO PRN (16:43)
[2018-12-01] MEDS: Mirtazapine 30 MG Tab PO SCH (21:22)
[2018-12-01] MEDS: Carbidopa/Levodopa 50-200 MG Tab.ER PO SCH (21:24)
[2018-12-01] MEDS: Vilazodone 20 MG Tab PO SCH (21:24)
[2018-12-02] MEDS: Carbidopa/Levodopa 25-100 MG Tab PO SCH ×5 (06:27→16:37)
[2018-12-02] MEDS: Pantoprazole 40 MG Tab.CR PO SCH (06:45)
[2018-12-02] MEDS: Polyethylene Glycol 3350 Powder 17 GM Packet PO SCH (08:03)
[2018-12-02] MEDS: Acetaminophen 650 MG Tab.ER PO SCH ×2 (08:04→21:02)
[2018-12-02] MEDS: Multivitamin Tab PO SCH (08:05)
[2018-12-02] MEDS: Cholecalciferol (Vitamin D3) 25 MCG Tab PO SCH (08:05)
[2018-12-02] MEDS: Biotin 5 MG Cap PO SCH (08:06)
[2018-12-02] MEDS: cycloSPORINE Ophth Drops U/D Box of 30 EYEBOTH SCH ×2 (08:06→21:28)
[2018-12-02] MEDS: Calcium Carbonate 500 MG Tablet PO SCH (08:06)
[2018-12-02] MEDS: Ferrous Sulfate 325 MG Tab PO SCH (08:06)
[2018-12-02] MEDS: oxyCODONE 5 MG Tab PO PRN ×3 (15:06→21:06)
--- NOTE | 2018-12-02 15:15 | PN ---
DATE SEEN: 12/02/2018 HISTORY: Penny is a 58-year-old woman with a history of significant Parkinson's disease, severe osteoarthritis of the knees, status post failed multiple arthroplasties, who underwent revision arthroplasty bilaterally and extensor mechanism reconstruction by Dr. Farah at [facility] in [place] on 11/14/2018. She has been in swing bed at [facility] and has been making very good progress. She is walking full cotter length with her walker and physical therapy once to twice daily. She states her pain control is adequate. She is in a right knee immobilizer because of the extensor mechanism reconstruction, but is having good mobility on the left knee. PHYSICAL EXAMINATION: GENERAL: She is alert, comfortable, and presents with a significant Parkinson's tremor. VITAL SIGNS: Blood pressure 126/74, pulse 87, respirations 12, temperature 97.9. Weight 233 pounds last week. SKIN: Incision on the left knee looks clean and healing. Right knee is in the immobilizer and wraps, and not unwrapped for exam. No skin rashes noted. HEENT: Shows her mouth to be dry. LUNGS: Clear to the bases. HEART: Regular without murmur or gallop. ABDOMEN: Obese. EXTREMITIES: Show no ankle edema of significance. LABORATORY DATA: Laboratory last done showed a hemoglobin of 9.2 g on 11/16/18. ASSESSMENT: 1. Three weeks status post bilateral total knee revisions and right extensor mechanism reconstruction, doing well in physical therapy. 2. Parkinson's disease. 3. Schizoaffective disorder. 4. Obesity. PLAN: We will continue physical therapy. With continued improvement, I anticipate discharge to her home where she lives with her sister in a single- story house within 1 week and follow up as an outpatient after that kavita /[id number] STEPHANIE/ABHIJEET
[2018-12-02] MEDS: Mirtazapine 30 MG Tab PO SCH (21:00)
[2018-12-02] MEDS: Carbidopa/Levodopa 50-200 MG Tab.ER PO SCH (21:02)
[2018-12-02] MEDS: Vilazodone 20 MG Tab PO SCH (21:02)
[2018-12-03] MEDS: Carbidopa/Levodopa 25-100 MG Tab PO SCH ×5 (06:23→17:52)
[2018-12-03] MEDS: oxyCODONE 5 MG Tab PO PRN ×3 (06:25→20:15)
[2018-12-03] MEDS: Pantoprazole 40 MG Tab.CR PO SCH (07:28)
[2018-12-03] MEDS: Cholecalciferol (Vitamin D3) 25 MCG Tab PO SCH (08:13)
[2018-12-03] MEDS: Biotin 5 MG Cap PO SCH (08:13)
[2018-12-03] MEDS: Ferrous Sulfate 325 MG Tab PO SCH (08:13)
[2018-12-03] MEDS: Calcium Carbonate 500 MG Tablet PO SCH (08:13)
[2018-12-03] MEDS: cycloSPORINE Ophth Drops U/D Box of 30 EYEBOTH SCH ×2 (08:14→20:12)
[2018-12-03] MEDS: Acetaminophen 650 MG Tab.ER PO SCH ×2 (08:14→20:11)
[2018-12-03] MEDS: Multivitamin Tab PO SCH (08:15)
[2018-12-03] MEDS: Polyethylene Glycol 3350 Powder 17 GM Packet PO SCH (11:47)
[2018-12-03] MEDS: Mirtazapine 30 MG Tab PO SCH (20:13)
[2018-12-03] MEDS: Vilazodone 20 MG Tab PO SCH (20:14)
[2018-12-03] MEDS: Carbidopa/Levodopa 50-200 MG Tab.ER PO SCH (20:14)
[2018-12-04] MEDS: Carbidopa/Levodopa 25-100 MG Tab PO SCH ×5 (05:45→17:28)
[2018-12-04] MEDS: oxyCODONE 5 MG Tab PO PRN ×3 (05:45→20:43)
[2018-12-04] MEDS: Pantoprazole 40 MG Tab.CR PO SCH (07:22)
[2018-12-04] MEDS: Cholecalciferol (Vitamin D3) 25 MCG Tab PO SCH (08:13)
[2018-12-04] MEDS: Acetaminophen 650 MG Tab.ER PO SCH ×2 (08:13→20:42)
[2018-12-04] MEDS: Calcium Carbonate 500 MG Tablet PO SCH (08:14)
[2018-12-04] MEDS: Multivitamin Tab PO SCH (08:14)
[2018-12-04] MEDS: Ferrous Sulfate 325 MG Tab PO SCH (08:15)
[2018-12-04] MEDS: cycloSPORINE Ophth Drops U/D Box of 30 EYEBOTH SCH ×2 (08:15→20:40)
[2018-12-04] MEDS: Biotin 5 MG Cap PO SCH (08:16)
[2018-12-04] MEDS: Polyethylene Glycol 3350 Powder 17 GM Packet PO SCH (11:12)
[2018-12-04] MEDS: Mirtazapine 30 MG Tab PO SCH (20:40)
[2018-12-04] MEDS: Carbidopa/Levodopa 50-200 MG Tab.ER PO SCH (20:41)
[2018-12-04] MEDS: Vilazodone 20 MG Tab PO SCH (20:42)
[2018-12-05] MEDS: Carbidopa/Levodopa 25-100 MG Tab PO SCH ×5 (05:43→17:29)
[2018-12-05] MEDS: oxyCODONE 5 MG Tab PO PRN (05:44)
[2018-12-05] MEDS: Pantoprazole 40 MG Tab.CR PO SCH (07:54)
[2018-12-05] MEDS ORDERED: Acetaminophen/HYDROcodone 325-5 MG Tab PO PRN (08:23)
[2018-12-05] MEDS ORDERED: Acetaminophen 650 MG Tab.ER PO PRN (08:26)
[2018-12-05] MEDS: Biotin 5 MG Cap PO SCH (08:33)
[2018-12-05] MEDS: Ferrous Sulfate 325 MG Tab PO SCH (08:33)
[2018-12-05] MEDS: cycloSPORINE Ophth Drops U/D Box of 30 EYEBOTH SCH ×2 (08:34→20:10)
[2018-12-05] MEDS: Calcium Carbonate 500 MG Tablet PO SCH (08:34)
[2018-12-05] MEDS: Multivitamin Tab PO SCH (08:35)
[2018-12-05] MEDS: Cholecalciferol (Vitamin D3) 25 MCG Tab PO SCH (08:38)
[2018-12-05] MEDS: Polyethylene Glycol 3350 Powder 17 GM Packet PO SCH (09:00)
[2018-12-05] MEDS: Acetaminophen/HYDROcodone 325-5 MG Tab PO PRN (17:28)
[2018-12-05] MEDS: Vilazodone 20 MG Tab PO SCH (20:09)
[2018-12-05] MEDS: Mirtazapine 30 MG Tab PO SCH (20:09)
[2018-12-05] MEDS: Carbidopa/Levodopa 50-200 MG Tab.ER PO SCH (20:10)
[2018-12-06] MEDS: Carbidopa/Levodopa 25-100 MG Tab PO SCH ×3 (05:04→11:25)
[2018-12-06] MEDS: Calcium Carbonate 500 MG Tablet PO SCH (08:00)
[2018-12-06] MEDS: Biotin 5 MG Cap PO SCH (08:00)
[2018-12-06] MEDS: Multivitamin Tab PO SCH (08:00)
[2018-12-06] MEDS: Cholecalciferol (Vitamin D3) 25 MCG Tab PO SCH (08:00)
[2018-12-06] MEDS: cycloSPORINE Ophth Drops U/D Box of 30 EYEBOTH SCH (08:00)
[2018-12-06] MEDS: Ferrous Sulfate 325 MG Tab PO SCH (08:00)
[2018-12-06] MEDS: Polyethylene Glycol 3350 Powder 17 GM Packet PO SCH (08:03)
[2018-12-06] MEDS: Acetaminophen/HYDROcodone 325-5 MG Tab PO PRN (11:28)
--- NOTE | 2018-12-07 09:05 | DISCH ---
DISCHARGE DATE: 12/06/2018 HISTORY: Penny is a 58-year-old woman who underwent bilateral repeat total knee arthroplasties and right knee extensor mechanism reconstruction by Dr. Farah at [facility] in [place] on 11/14/2018. Following her acute hospitalization, she was discharged to swing bed at [facility], where she was enrolled in therapy. The patient has steadily progressed through therapy such that she is now able to walk up and down the halls, get out of bed, dress herself. She had a temporary home visit 3 days ago, which progressed satisfactorily. She has a followup orthopedic appointment today, after which she will be discharged to her home. The patient has had much better postoperative course than her previous knee revision surgery, and it is apparent that she is obviously functioning better as well. PHYSICAL EXAMINATION: GENERAL: Exam at time of discharge reveals her to be awake and alert and comfortable. VITAL SIGNS: Blood pressure 109/69, pulse 82, respirations normal, O2 saturation 97% on room air, temp 98, weight 230 pounds. SKIN: Showed no rash. She had a dressing in place over the right knee incision with a wound VAC that was clamped off. Left knee incision was clean and dry and healing nicely. NEUROLOGIC: Gait was slow but steady, balance was good. EXTREMITIES: Showed no edema. LABORATORY DATA: On 12/02/2018, showed hemoglobin of 8.6, electrolytes normal. Creatinine 1.2. Vitamin B12 of 1129. PLAN: The patient is discharged to her home where she lives with her sister in good condition. We will have Home Health assess for ADL functioning, ambulatory safety, medication effectiveness, and we will ask her to have a followup in the clinic in one month, sooner kavita /[id number] STEPHANIE/ABHIJEET
== END 2018-12-06 12:10 | disposition home or self-care (01) | DRG 560 ==
LOC: FB.MS 11:58
PROVIDERS: ADMIT Family Medicine; ATTEND Family Medicine
DX: Z47.1 Aftercare following joint replacement surgery (principal); D68.51 Activated protein C resistance; Z68.41 Body mass index [BMI] 40.0-44.9, adult; Z96.653 Presence of artificial knee joint, bilateral; G20 Parkinson's disease; F41.9 Anxiety disorder, unspecified; F32.9 Major depressive disorder, single episode, unspecified; G89.4 Chronic pain syndrome; K21.9 Gastro-esophageal reflux disease without esophagitis; D64.9 Anemia, unspecified; E66.9 Obesity, unspecified; N18.3 Chronic kidney disease, stage 3 (moderate); K59.00 Constipation, unspecified; F25.9 Schizoaffective disorder, unspecified; Z88.8 Allergy status to other drugs, medicaments and biological substances; Z86.73 Personal history of transient ischemic attack (TIA), and cerebral infarction without residual deficits; Z79.01 Long term (current) use of anticoagulants; Z79.899 Other long term (current) drug therapy; Z90.710 Acquired absence of both cervix and uterus; Z90.89 Acquired absence of other organs
CPT/HCPCS: 36415; 80048; 80061; 82607; 85025; 94150; 94760; 97110-GP; 97116-GP; 97161-GP; 97165-GO; 97530-GO; 97535-GO; A9270-GY

== ENCOUNTER → 2019-01-02 | Outpatient (CLI) | payer MEDICARE, MEDICAID | LOC: FB.MH 08:00 | PROVIDERS: ATTEND Psychiatry & Neurology Psychiatry | DX: F33.1 Major depressive disorder, recurrent, moderate (principal); F41.1 Generalized anxiety disorder | CPT/HCPCS: 99213 ==

== ENCOUNTER 2019-09-10 11:20 | Inpatient (IN) | payer MEDICARE, MEDICAID ==
--- NOTE | 2019-09-10 12:20 | EDM.PDOC ---
ED HPI GENERAL MEDICAL PROBLEM - General Chief Complaint: General Stated Complaint: WEAKNESS Time Seen by Provider: 09/10/19 11:35 Source of Information: Reports: Patient, Family History Limitations: Reports: No Limitations - History of Present Illness INITIAL COMMENTS - FREE TEXT/NARRATIVE: c/o PD pt with h/o PD, has been staying with sister, sister says she has had inc'd wea kness, inc'd stiffness, sister not able to care her pt went to walk in clinic 1d ago and CBC/CMP/ua all neg except inc'd BUN pt reports she had b/l knee replacements 9m ago, says she was walking and doing okay for awhile, then had more difficulty walking and transfering 2m ago was able to get out of bed without assist and to bathroom with walker at 1:30a today. However, when she woke at 6a she was only able to sit on the edge of the bed by herself, says her "knee locked in place", was able to transfer to motorized cart with assistance of her sister, ate yogurt for bfast altho sister had to feed her, pt needed help getting dressed as well pt says she stopped her carbidopa 1w ago because her shaking was not getting better when taking it, stopped her depression med 1w ago (that Dr Tamayo had started 2m ago) because it was not working either, says "I have no motivation" denies pain says her sisater has had to feed her and help her dressand transfer for the past 1.5-2 weeks last had an apt with neuro Dr Meme Ahmadi [facility] via [facility] 2m ago, pt repots that Dr Ahmadi told her to wean herself off of the carbidopa since her shaking had gotten worse mainly shaking UEs altho some with LEs too LABS IN MEDITECH: 1d ago CBC neg with wbc 7.3, hgb 13.7, plt 245, sets 74.1% 1d ago u/a neg with SG 1.015, no ketones, nitrate neg, leuk esterase neg 1d ago CMP with BUN/creat 29/1.0 (baseline 7/0.9 from 9m ago), LFTs neg, glu 86 2y ago with ESR 14 2y ago with CRP 2.1 PMH IN MEDITECH: BEH: MDD, anxiety NEURO: PD, ambulatory dysfunciton HEME: Factor 5 Leiden GI: GERD RENAL: CKD ORTHO: s/p total knee arthroplasty MEDS: see list IMAGING IN [facility]: none in past year, no prior EKGs LAST HOSPITALIZATION IN [facility]: admit 11-17-18 and d/c 12-06-18 here, had a b/l repeat TKAs with R knee extensor mechanism reocnstruction by Dr Farah at [facility] on 11-14-18, on skilled bed here. "Gait was slow but steady, balance was good." "Able to walk up and down the halls, get out of bed, dress herself." d/'ed home "where she lives with her sister." Dr Tamayo attending physician. generalized Pain Score (Numeric/FACES): 5 - Related Data Allergies Allergy/AdvReac Type Severity Reaction Status Date / Time gabapentin Allergy Slurred Verified 02/05/17 14:59 Speech Home Meds: Home Meds Biotin 5 mg PO DAILY 02/05/17 [History] Carbidopa/Levodopa [Sinemet 25-100 mg Tablet] 2 tab PO 06,0845,1130,1415,17 02/05/17 [History] Furosemide [Lasix] 40 mg PO DAILY PRN 02/05/17 [History] Multivitamin [Daily William] 1 tab PO DAILY 02/05/17 [History] Rivaroxaban [Xarelto] 20 mg PO WITHDINNER 02/05/17 [History] Acetaminophen [Tylenol Extra Strength] 1,000 mg PO Q6H PRN 11/17/18 [History] Albuterol [Proventil Neb Soln] 2.5 mg IH QID PRN 11/17/18 [History] Calcium Carb, Citrate/Vit D3 [Citracal + D ER] 2 tab PO DAILY 11/17/18 [History] Carbidopa/Levodopa [Sinemet CR 50-200] 1 tab PO BEDTIME 11/17/18 [History] Carbidopa/Levodopa [Sinemet CR 50-200] 1 tab PO DAILY PRN 11/17/18 [History] Dexlansoprazole [Dexilant] 60 mg PO DAILY 11/17/18 [History] Dextran 70/Hypromellose [Artificial Tears] 1 - 2 drop EYEBOTH Q4H PRN 11/17/18 [History] Ferrous Sulfate 325 mg PO DAILY 11/17/18 [History] Hemp Oil 1 dose PO TID 11/17/18 [History] Hydrocort/Neomycin/Polymyxin B [Cortisporin Otic Susp] 3 drop EARLF TID PRN 11/17/18 [History] Mirtazapine 30 mg PO BEDTIME 11/17/18 [History] Mometasone Furoate [Nasonex] 2 spray NASBOTH DAILY PRN 11/17/18 [History] Sennosides/Docusate Sodium [Senna-S] 2 tab PO BID 11/17/18 [History] Vilazodone [Viibryd] 20 mg PO BEDTIME 11/17/18 [History] cycloSPORINE [Restasis] 1 drop EYEBOTH BID 11/17/18 [History] diphenhydrAMINE [Benadryl] 25 mg PO BEDTIME PRN 11/17/18 [History] Acetaminophen/HYDROcodone [Galliano 325-5 MG] 1 - 2 tab PO Q4H PRN #30 tablet 12/06/18 [Rx] Carbidopa/Levodopa [Carbidopa-Levodopa 25-100] 2 tab PO 06,0845,1130,1415,17 tablet 12/06/18 [Rx] Cholecalciferol (Vitamin D3) [Vitamin D3] 25 mcg PO DAILY #90 tablet 12/06/18 [Rx] polyethylene glycoL 3350 [MiraLAX] 17 gm PO DAILY #1 bottle 12/06/18 [Rx] Past Medical History HEENT History: Reports: Hard of Hearing, Impaired Vision Respiratory History: Reports: SOB Gastrointestinal History: Reports: GERD Genitourinary History: Reports: Urinary Incontinence Musculoskeletal History: Reports: Arthritis, Back Pain, Chronic Neurological History: Reports: Headaches, Chronic, Parkinson's, TIA Psychiatric History: Reports: Anxiety, Depression, Suicidal Ideation Endocrine/Metabolic History: Reports: Obesity/BMI 30+ Hematologic History: Reports: Anticoagulation Therapy - Infectious Disease History Infectious Disease History: Reports: Chicken Pox, Measles - Past Surgical History Head Surgeries/Procedures: Reports: None HEENT Surgical History: Reports: Adenoidectomy, Oral Surgery, Tonsillectomy Respiratory Surgical History: Reports: None GI Surgical History: Reports: Cholecystectomy, Colonoscopy Female Surgical History: Reports: Breast Biopsy, Hysterectomy Neurological Surgical History: Reports: None Musculoskeletal Surgical History: Reports: Knee Replacement Social & Family History - Family History Family Medical History: Noncontributory - Caffeine Use Caffeine Use: Reports: Coffee, Soda ED ROS GENERAL - Review of Systems Review Of Systems: See Below Constitutional: Reports: No Symptoms HEENT: Reports: No Symptoms Respiratory: Reports: No Symptoms Cardiovascular: Reports: No Symptoms Endocrine: Reports: No Symptoms GI/Abdominal: Reports: No Symptoms : Reports: No Symptoms Musculoskeletal: Reports: No Symptoms Skin: Reports: No Symptoms Neurological: Reports: Other (shaking) Psychiatric: Reports: No Symptoms Hematologic/Lymphatic: Reports: No Symptoms Immunologic: Reports: No Symptoms ED EXAM, GENERAL - Physical Exam Exam: See Below Exam Limited By: No Limitations General Appearance: Alert, WD/WN, No Apparent Distress, Other (alert, pleasant, good eye contact, speech animated and appropriate, answer questions, gives knowledgeable reply to questions, mood seems appropriate) Ears: Normal External Exam, Hearing Grossly Normal Nose: Normal Inspection, Normal Mucosa, No Blood Throat/Mouth: Normal Inspection, Normal Lips, Normal Teeth, Normal Gums, Normal Oropharynx, Normal Voice, No Airway Compromise, Other (mouth is dry) Head: Atraumatic, Normocephalic Neck: Normal Inspection, Supple, Non-Tender, Full Range of Motion. No: Lymphadenopathy (R), Lymphadenopathy (L) Respiratory/Chest: No Respiratory Distress, Lungs Clear, Normal Breath Sounds, No Accessory Muscle Use, Chest Non-Tender Cardiovascular: Regular Rate, Rhythm, No Edema, No Gallop, No Rub, Other (2/6 PEREZ at LSB) GI/Abdominal: Soft, Non-Tender, No Distention Back Exam: Normal Inspection Extremities: Other (moderate tremor both hands at 120 beats/min, pill rolling tremor of L hand, cogwheeling of both UEs altho not rigid, good ROM LEs without rigidity, no clonus, patellar DTRs not elicted, R biceps and BR DTR 1-2+ without hyperreflexia, seems to move hands and arms without bradykinesia) Neurological: Alert, Oriented, CN II-XII Intact, Normal Cognition, No Motor/Sensory Deficits Psychiatric: Normal Affect, Normal Mood, Other (mood and affect appear appropriate, no SI/HI) Skin Exam: Warm, Dry, Intact, Normal Color, No Rash Lymphatic: No Adenopathy Course - Vital Signs Last Recorded V/S: Last Vital Signs Temp 36.8 C 09/10/19 11:30 Pulse 85 09/10/19 11:30 Resp 15 09/10/19 11:30 BP 135/78 09/10/19 11:30 Pulse Ox 97 09/10/19 11:30 - Orders/Labs/Meds Orders: Active Orders 24 hr Category Date Time Status Admission Status [Patient Status] [ADT] Routine ADT 09/10/19 14:03 Ordered EKG Documentation Completion [RC] ASDIRECTED Care 09/10/19 12:17 Active Chest 2V [CR] Stat Exams 09/10/19 12:17 Taken Sodium Chloride 0.9% [Normal Saline] 1,000 ml Med 09/10/19 12:45 Active IV ASDIRECTED Sodium Chloride 0.9% [Saline Flush] Med 09/10/19 12:34 Active 10 ml FLUSH ASDIRECTED PRN EKG 12 Lead [EK] Routine Ther 09/10/19 12:17 Ordered Medication Orders Sodium Chloride (Normal Saline) 1,000 mls @ 999 mls/hr IV ASDIRECTED THERESA Last Admin: 09/10/19 12:34 Dose: 999 mls/hr Documented by: MARTHA Sodium Chloride (Saline Flush) 10 ml FLUSH ASDIRECTED PRN PRN Reason: Keep Vein Open Last Admin: 09/10/19 12:35 Dose: 10 ml Documented by: MARTHA Labs: Laboratory Tests 09/10/19 09/10/19 Range/Units 12:37 12:37 ESR 6 (0-20) mm/hr Troponin I 4.8 (4.0-60.3) pg/mL C-Reactive Protein 0.6 (0.5-0.9) mg/dL Meds: Medications Generic Name Dose Route Start Last Admin Trade Name Freq PRN Reason Stop Dose Admin Sodium Chloride 1,000 mls @ 999 mls/hr 09/10/19 12:45 09/10/19 12:34 Normal Saline IV 999 mls/hr ASDIRECTED THERESA Administration Sodium Chloride 10 ml 09/10/19 12:34 09/10/19 12:35 Saline Flush FLUSH 10 ml ASDIRECTED PRN Administration Keep Vein Open - Re-Assessments/Exams Free Text/Narrative Re-Assessment/Exam: 09/10/19 14:05 labs (trop/ESR/CRP) all wnl EKG is NSR with artifacts from UE jerking CxR 2v is neg on prelim ED read\\ discussed earlier with Dr Sanford, discussed again, she accepted pt in admission with plan to arrange admission pt with c/o back pain, will give acetaminophen 650 mg PO Departure - Departure Time of Disposition: 14:08 Disposition: Admitted As Inpatient 68 Condition: Good Clinical Impression: Weakness, Unable to walk, Coarse tremors, Pill rolling tremors, Cogwheel rigidity, Noncompliance with medications, Mild dehydration, Elevated BUN - Discharge Information *PRESCRIPTION DRUG MONITORING PROGRAM REVIEWED*: Not Applicable *COPY OF PRESCRIPTION DRUG MONITORING REPORT IN PATIENT DMITRI: Not Applicable Forms: ED Department Discharge Sepsis Event Note (ED) - Evaluation Sepsis Screening Result: No Definite Risk - Focused Exam Vital Signs: Vital Signs Temp Pulse Resp BP Pulse Ox 09/10/19 11:30 36.8 C 85 15 135/78 97 - My Orders Last 24 Hours: My Active Orders 09/10/19 12:17 EKG Documentation Completion [RC] ASDIRECTED Chest 2V [CR] Stat EKG 12 Lead [EK] Routine 09/10/19 12:34 Sodium Chloride 0.9% [Saline Flush] 10 ml FLUSH ASDIRECTED PRN 09/10/19 12:45 Sodium Chloride 0.9% [Normal Saline] 1,000 ml IV ASDIRECTED 09/10/19 14:03 Admission Status [Patient Status] [ADT] Routine - Assessment/Plan Last 24 Hours: My Active Orders 09/10/19 12:17 EKG Documentation Completion [RC] ASDIRECTED Chest 2V [CR] Stat EKG 12 Lead [EK] Routine 09/10/19 12:34 Sodium Chloride 0.9% [Saline Flush] 10 ml FLUSH ASDIRECTED PRN 09/10/19 12:45 Sodium Chloride 0.9% [Normal Saline] 1,000 ml IV ASDIRECTED 09/10/19 14:03 Admission Status [Patient Status] [ADT] Routine
[2019-09-10] MEDS ORDERED: Sodium Chloride 0.9% 10 ML Syringe FLUSH PRN (12:34)
[2019-09-10] MEDS ORDERED: Sodium Chloride 0.9% 1,000 ML IV SCH (12:45)
[2019-09-10] MEDS ORDERED: Acetaminophen 325 MG Tab PO ONE (14:08)
[2019-09-10] MEDS ORDERED: Furosemide 40 MG Tab PO PRN (15:38)
[2019-09-10] MEDS ORDERED: Carbidopa/Levodopa 50-200 MG Tab.ER PO PRN (15:59)
--- NOTE | 2019-09-10 16:19 | PCM.HP.2 ---
H&P History of Present Illness - General Date of Service: 09/10/19 Admit Problem/Dx: Admission Diagnosis/Problem Admission Diagnosis/Problem Weakness Source of Information: Patient, EMS Notes Reviewed, Provider (Dr Vaughan) - History of Present Illness Initial Comments - Free Text/Narative: Penny presented to ER this morning as she could not walk without assistance this morning, required her sister to help her transfer, she also had to feed her this morning. She has noticed worsening stiffness over the past 1 1/2-2 weeks since she was weaned off her TID dose of Sinemet, she still takes Sinemet 50/200 mg at 2000 and then an as needed dose between 2300 and 0300 if she is still awake. She is quite tremulous and Dr Hernandez, [facility] had weaned her dose to see if her tremors improved, they have remained the same. She was able to transfer herself to the bathroom overnight but not this morning, also usually is able to feed herself. She is incontinent of urine, so usually wears a pad, w ith help of her sister, she used her motorized scooter to get to the bathroom and transfer this morning to have a bowel movement. No fevers, chills, cough, shortness of breath, chest pain, abdominal pain, nausea, vomiting or diarrhea. No dysuria or frequency. No rashes. She has been more depressed lately, was on Trintellix but was not helping. She presented to [facility] on August 25, 2019 with suicidal ideation, was seen by Psychiatry and Trintellix was stopped, kept on Remeron and was due to follow up with Dr Fernandez. Spoke with Dr Vaughan, [facility] urgent care nurse practitioner, advised to restart her Sinemet 25/100 mg IR 1/2 tab tid at 0600, 0900, 1500; she stated we should see improvement with rigidity over the next few days. She also reported that she has been on 4-5 SSRI/SNRIs in the past with Sertraline being the last one, on Seroquel in 2012, Viibryd Mar 2019, and Trintellix the latest one. Dr Vaughan stated she would leave a message for Dr Hernandez that she is an inpatient and what recommendations were given. generalized Pain Score (Numeric/FACES): 4 - Related Data Allergies/Adverse Reactions: Allergies Allergy/AdvReac Type Severity Reaction Status Date / Time gabapentin Allergy Slurred Verified 09/10/19 14:44 Speech Home Medications: Home Meds Biotin 5 mg PO DAILY 02/05/17 [History] Furosemide [Lasix] 40 mg PO ASDIRECTED PRN 02/05/17 [History] Multivitamin [Daily William] 1 tab PO DAILY 02/05/17 [History] Rivaroxaban [Xarelto] 20 mg PO WITHDINNER 02/05/17 [History] Acetaminophen [Tylenol Extra Strength] 1,000 mg PO Q6H PRN 11/17/18 [History] Calcium Carb, Citrate/Vit D3 [Citracal + D ER] 2 tab PO DAILY 11/17/18 [History] Carbidopa/Levodopa [Sinemet CR 50-200] 1 tab PO ASDIRECTED PRN 11/17/18 [History] Carbidopa/Levodopa [Sinemet CR 50-200] 1 tab PO BEDTIME 11/17/18 [History] Dexlansoprazole [Dexilant] 60 mg PO DAILY 11/17/18 [History] Mirtazapine 30 mg PO BEDTIME 11/17/18 [History] Sennosides/Docusate Sodium [Senna-S] 2 tab PO BID 11/17/18 [History] Cholecalciferol (Vitamin D3) [Vitamin D3] 25 mcg PO DAILY #90 tablet 12/06/18 [Rx] Ascorbic Acid [Vitamin C with Ny Hips] 1 tab PO DAILY 09/10/19 [History] Past Medical History HEENT History: Reports: Hard of Hearing, Impaired Vision Respiratory History: Reports: SOB Gastrointestinal History: Reports: GERD Genitourinary History: Reports: Urinary Incontinence Musculoskeletal History: Reports: Arthritis, Back Pain, Chronic Neurological History: Reports: Headaches, Chronic, Parkinson's, TIA Psychiatric History: Reports: Anxiety, Depression, Suicidal Ideation Endocrine/Metabolic History: Reports: Obesity/BMI 30+ Hematologic History: Reports: Anticoagulation Therapy - Infectious Disease History Infectious Disease History: Reports: Chicken Pox, Measles - Past Surgical History Head Surgeries/Procedures: Reports: None HEENT Surgical History: Reports: Adenoidectomy, Oral Surgery, Tonsillectomy Respiratory Surgical History: Reports: None GI Surgical History: Reports: Cholecystectomy, Colonoscopy Female Surgical History: Reports: Breast Biopsy, Hysterectomy Neurological Surgical History: Reports: None Musculoskeletal Surgical History: Reports: Knee Replacement Social & Family History - Family History Family Medical History: Noncontributory - Tobacco Use Smoking Status *Q: Never Smoker Second Hand Smoke Exposure: No - Caffeine Use Caffeine Use: Reports: Coffee, Soda - Recreational Drug Use Recreational Drug Use: No H&P Review of Systems - Review of Systems: Review Of Systems: Comprehensive ROS is negative, except as noted in HPI. Exam - Exam Exam: See Below - Vital Signs Vital Signs: Last Vital Signs Temp 98.0 F 09/10/19 15:00 Pulse 84 09/10/19 15:00 Resp 20 09/10/19 15:00 BP 117/52 L 09/10/19 15:00 Pulse Ox 96 09/10/19 15:00 Weight: 190 lb 4.8 oz - Exam General: Alert, Oriented, Cooperative HEENT: PERRLA, Conjunctiva Clear, Hearing Intact, Mucosa Moist & Almond Neck: Supple, Trachea Midline. No: Lymphadenopathy Lungs: Clear to Auscultation, Normal Respiratory Effort Cardiovascular: Regular Rate, Regular Rhythm GI/Abdominal Exam: Normal Bowel Sounds, Soft, Non-Tender, No Distention (Female) Exam: Deferred Rectal (Female) Exam: Deferred Extremities: Normal Inspection (Surgical scars on bilateral knees.), No Pedal Edema. No: Joint Swelling Peripheral Pulses: 2+: Radial (L), Radial (R), Posterior Tibial (L), Posterior Tibial (R), Dorsalis Pedis (L), Dorsalis Pedis (R) Skin: Warm, Dry, Intact Neurological: Cranial Nerves Intact, Normal Speech Neuro Extensive - Motor, Sensory, Reflexes: Tremor (pill rolling, fast), Other (Cogwheel rigidity BUE, stiffness of BLE) DTR: 1+: Tricep (L), Tricep (R), 2+: Bicep (L) (2+ Brachoradialis), Bicep (R) (2+ Brachoradialis) Psychiatric: Depressed. No: Hallucinations - Patient Data Lab Results Last 24 hrs: Laboratory Results - last 24 hr 09/10/19 09/10/19 09/10/19 Range/Units 11:40 12:37 12:37 ESR 6 (0-20) mm/hr Magnesium 1.9 (1.8-2.5) mg/dL Troponin I 4.8 (4.0-60.3) pg/mL C-Reactive Protein 0.6 (0.5-0.9) mg/dL See ER documentation for labs from yesterday at Urgent Care. Sepsis Event Note - Evaluation Sepsis Screening Result: No Definite Risk - Focused Exam Vital Signs: Vital Signs Temp Pulse Resp BP Pulse Ox Pulse Ox 09/10/19 15:00 98.0 F 84 20 117/52 L 96 96 09/10/19 11:30 98.2 F 85 15 135/78 97 Date Exam was Performed: 09/10/19 Time Exam was Performed: 16:10 *Q Meaningful Use (ADM) - VTE *Q VTE Anticoagulation Contraindications: Alternative TX Request PT (on Xarelto for Factor V Leiden) - VTE Risk Assess *Q Each Risk Factor Represents 1 Point: Age 41 - 59 years Total Score 1 Point Risk Factors: 1 Each Risk Factor Represents 2 Points: Patient confined to bed greater than 72 hours Total Score 2 Point Risk Factors: 2 Each Risk Factor Represents 3 Points: Positive factor V Leiden Total Score 3 Point Risk Factors: 3 Each Risk Factor Represents 5 Points: None Total Score 5 Point Risk Factors: 0 Venous Thromboembolism Risk Factor Score *Q: 6 - Problem List (1) Weakness SNOMED Code(s): 38957118 ICD Code: R53.1 - WEAKNESS Status: Acute Current Visit: Yes (2) Unable to walk SNOMED Code(s): 495570622 ICD Code: R26.2 - DIFFICULTY IN WALKING, NOT ELSEWHERE CLASSIFIED Status: Acute Current Visit: Yes (3) Parkinson disease SNOMED Code(s): 56820191 ICD Code: G20 - PARKINSON'S DISEASE Status: Chronic Current Visit: No (4) Coarse tremors SNOMED Code(s): 88940732 ICD Code: G25.2 - OTHER SPECIFIED FORMS OF TREMOR Status: Acute Current Visit: Yes (5) Cogwheel rigidity SNOMED Code(s): 39430717 ICD Code: R29.898 - OTH SYMPTOMS AND SIGNS INVOLVING THE MUSCULOSKELETAL SYSTEM Status: Acute Current Visit: Yes (6) Pill rolling tremors SNOMED Code(s): 878403344 ICD Code: R25.1 - TREMOR, UNSPECIFIED Status: Acute Current Visit: Yes (7) S/P total knee arthroplasty SNOMED Code(s): 9398243723158, 425303114, 2199698393327 ICD Code: Z96.659 - PRESENCE OF UNSPECIFIED ARTIFICIAL KNEE JOINT Status: Acute Current Visit: No Onset Date: 02/02/17 Qualifiers: Laterality: bilateral Qualified Code(s): Z96.653 - Presence of artificial knee joint, bilateral (8) CKD (chronic kidney disease) SNOMED Code(s): 245916987 ICD Code: N18.9 - CHRONIC KIDNEY DISEASE, UNSPECIFIED Status: Chronic Current Visit: No Qualifiers: Chronic kidney disease stage: stage 3 (moderate) Qualified Code(s): N18.3 - Chronic kidney disease, stage 3 (moderate) (9) Factor 5 Leiden mutation, heterozygous SNOMED Code(s): 929732750 ICD Code: D68.51 - ACTIVATED PROTEIN C RESISTANCE Status: Chronic Current Visit: No (10) GERD (gastroesophageal reflux disease) SNOMED Code(s): 052757835 ICD Code: K21.9 - GASTRO-ESOPHAGEAL REFLUX DISEASE WITHOUT ESOPHAGITIS Status: Chronic Current Visit: No (11) MDD (major depressive disorder) SNOMED Code(s): 303809524 ICD Code: F32.9 - MAJOR DEPRESSIVE DISORDER, SINGLE EPISODE, UNSPECIFIED Status: Chronic Current Visit: No Problem List Initiated/Reviewed/Updated: Yes Orders Last 24hrs: Active Orders 24 hr Category Date Time Status Admission Status [Patient Status] [ADT] Routine ADT 09/10/19 14:03 Active Antiembolic Devices [RC] .Routine Care 09/10/19 15:35 Active Oxygen Therapy [RC] PRN Care 09/10/19 15:35 Active Up With Assistance [RC] ASDIRECTED Care 09/10/19 15:35 Active Up to Chair [RC] ASDIRECTED Care 09/10/19 15:35 Active Vital Signs [RC] QSHIFT Care 09/10/19 15:35 Active OT Evaluation and Treatment [CONS] Routine Cons 09/11/19 06:00 Active PT Evaluation and Treatment [CONS] Routine Cons 09/11/19 06:00 Active Regular Diet [DIET] Diet 09/10/19 Dinner Active Chest 2V [CR] Stat Exams 09/10/19 12:17 Taken Acetaminophen [Tylenol Extra Strength] Med 09/10/19 15:38 Active 1,000 mg PO Q6H PRN Calcium Carbonate [Oyster Shell Calcium] Med 09/11/19 09:00 Active 1,000 mg PO DAILY Carbidopa/Levodopa [Sinemet 25-100 mg] Med 09/11/19 06:00 Ordered 0.5 tab PO TID@0600,0900,1500 Carbidopa/Levodopa [Sinemet Cr 50-200 mg] Med 09/10/19 15:59 Ordered 1 tab PO ASDIRECTED PRN Carbidopa/Levodopa [Sinemet Cr 50-200 mg] Med 09/10/19 21:00 Active 1 tab PO BEDTIME Docusate Sodium/Sennosides [Senna Plus] Med 09/10/19 21:00 Active 2 tab PO BID Furosemide [Lasix] Med 09/10/19 15:38 Active 40 mg PO ASDIRECTED PRN Mirtazapine [Remeron] Med 09/10/19 21:00 Active 30 mg PO BEDTIME Multivitamins [Tab-A-William] Med 09/11/19 09:00 Active 1 tab PO DAILY Rivaroxaban [Xarelto] Med 09/10/19 18:00 Active 20 mg PO WITHDINNER Sodium Chloride 0.9% [Normal Saline] 1,000 ml Med 09/10/19 12:45 Active IV ASDIRECTED Sodium Chloride 0.9% [Saline Flush] Med 09/10/19 12:34 Active 10 ml FLUSH ASDIRECTED PRN Antiembolic Hose [OM.PC] Per Unit Routine Oth 09/10/19 15:36 Ordered Resuscitation Status Routine Resus Stat 09/10/19 15:35 Ordered EKG 12 Lead [EK] Routine Ther 09/10/19 12:17 Ordered Medication Orders Acetaminophen (Tylenol Extra Strength) 1,000 mg PO Q6H PRN PRN Reason: MILD PAIN Calcium Carbonate/Glycine (Oyster Shell Calcium) 1,000 mg PO DAILY [facility] Carbidopa/Levodopa (Sinemet Cr 50-200 Mg) 1 tab PO BEDTIME [facility] Carbidopa/Levodopa (Sinemet Cr 50-200 Mg) 1 tab PO ASDIRECTED PRN PRN Reason: PARKINSONS Carbidopa/Levodopa (Sinemet 25-100 Mg) 0.5 tab PO TID@0600,0900,1500 [facility] Furosemide (Lasix) 40 mg PO ASDIRECTED PRN PRN Reason: Edema Sodium Chloride (Normal Saline) 1,000 mls @ 999 mls/hr IV ASDIRECTED [facility]ERESA Last Admin: 09/10/19 12:34 Dose: 999 mls/hr Documented by: MARTHA Mirtazapine (Remeron) 30 mg PO BEDTIME [facility] Multivitamins/Minerals/Vitamin C (Tab-A-William) 1 tab PO DAILY [facility] Rivaroxaban (Xarelto) 20 mg PO WITHDINNER [facility] Senna/Docusate Sodium (Senna Plus) 2 tab PO BID [facility] Sodium Chloride (Saline Flush) 10 ml FLUSH ASDIRECTED PRN PRN Reason: Keep Vein Open Last Admin: 09/10/19 12:35 Dose: 10 ml Documented by: MARTHA Assessment/Plan Comment:: 1. Admit for inpatient due to weakness, unable to walk secondary to increased stiffness related to her Parkinson's Disease. Required standing lift, 2 person assist in ER and on floor. Spoke with Dr Vaughan, [facility], will keep her bedtime Sinemet doses unchanged and restart Sinemet 25/100 mg 1/2 tab tid at 0600, 0900, 1500. Will not change her depression medication at this time. 2. PT/OT evaluation and treatment, may need NH placement vs swing bed as family are not able to care for her at home. 3. Regular diet. 4. DVT prophylaxis: TEDs BLE, Xarelto daily(has Factor V Leiden). 5. DNR/DNI per patient and advance directive. 6. Will adjust treatments as necessary. - Mortality Measure Prognosis:: Good
[2019-09-10] MEDS: Mirtazapine 30 MG Tab PO SCH (20:21)
[2019-09-10] MEDS: Carbidopa/Levodopa 50-200 MG Tab.ER PO SCH ×2 (20:43→21:00)
[2019-09-10] MEDS ORDERED: Carbidopa/Levodopa 50-200 MG Tab.ER PO SCH (21:00)
[2019-09-11] MEDS: Carbidopa/Levodopa 25-100 MG Tab PO SCH ×3 (05:36→15:20)
[2019-09-11] MEDS ORDERED: Carbidopa/Levodopa 25-100 MG Tab PO SCH (06:00)
[2019-09-11] MEDS: Calcium Carbonate 500 MG Tablet PO SCH (09:33)
[2019-09-11] MEDS: Multivitamin Tab PO SCH (09:33)
--- NOTE | 2019-09-11 10:43 | CR ---
INDICATION: Weakness. CHEST TWO VIEWS: AP and two lateral views of the chest were obtained 09/10/19 and compared with 03/11/18. There is again noted evidence of exogenous obesity. The heart appears to be at the upper limits of normal in size. The aorta is minimally tortuous. A definite active infiltrate or effusion was not identified. IMPRESSION: No acute process. MTDD
--- NOTE | 2019-09-11 11:40 | PCM.PN ---
- General Info Date of Service: 09/11/19 Subjective Update: She had to take her Sinemet 50/200 mg at about 1 am this morning, as her tremors were too much, kept her awake. No fevers, chills, shortness of breath. No nausea or vomiting. Functional Status: Reports: Tolerating Diet. Denies: New Symptoms - Patient Data Vitals - Most Recent: Last Vital Signs Temp 97.7 F 09/11/19 08:00 Pulse 89 09/11/19 08:00 Resp 18 09/11/19 08:00 BP 123/62 09/11/19 08:00 Pulse Ox 95 09/11/19 08:00 Weight - Most Recent: 189 lb 2 oz I&O - Last 24 Hours: Intake & Output 09/10/19 09/11/19 09/11/19 22:59 06:59 14:59 Intake Total 240 Balance 240 Lab Results Last 24 Hours: Laboratory Results - last 24 hr 09/10/19 09/10/19 09/10/19 Range/Units 11:40 12:37 12:37 ESR 6 (0-20) mm/hr Magnesium 1.9 (1.8-2.5) mg/dL Troponin I 4.8 (4.0-60.3) pg/mL C-Reactive Protein 0.6 (0.5-0.9) mg/dL Med Orders - Current: Current Medications Acetaminophen (Tylenol Extra Strength) 1,000 mg PO Q6H PRN PRN Reason: MILD PAIN Calcium Carbonate/Glycine (Oyster Shell Calcium) 1,000 mg PO DAILY [facility] Last Admin: 09/11/19 09:33 Dose: 1,000 mg Documented by: Carbidopa/Levodopa (Sinemet Cr 50-200 Mg) 1 tab PO ASDIRECTED PRN PRN Reason: PARKINSONS Last Admin: 09/11/19 01:18 Dose: 1 tab Documented by: Carbidopa/Levodopa (Sinemet 25-100 Mg) 0.5 tab PO TID@0600,0900,1500 [facility] Last Admin: 09/11/19 09:33 Dose: 0.5 tab Documented by: Carbidopa/Levodopa (Sinemet Cr 50-200 Mg) 1 tab PO BEDTIME [facility] Last Admin: 09/10/19 21:00 Dose: Not Given Documented by: Furosemide (Lasix) 40 mg PO ASDIRECTED PRN PRN Reason: Edema Sodium Chloride (Normal Saline) 1,000 mls @ 999 mls/hr IV ASDIRECTED [facility] Last Admin: 09/10/19 12:34 Dose: 999 mls/hr Documented by: Mirtazapine (Remeron) 30 mg PO BEDTIME [facility] Last Admin: 09/10/19 20:21 Dose: 30 mg Documented by: Multivitamins/Minerals/Vitamin C (Tab-A-William) 1 tab PO DAILY [facility] Last Admin: 09/11/19 09:33 Dose: 1 tab Documented by: Rivaroxaban (Xarelto) 20 mg PO WITHDINNER [facility] Last Admin: 09/10/19 18:04 Dose: 20 mg Documented by: Senna/Docusate Sodium (Senna Plus) 2 tab PO BID [facility] Last Admin: 09/11/19 09:33 Dose: 2 tab Documented by: Sodium Chloride (Saline Flush) 10 ml FLUSH ASDIRECTED PRN PRN Reason: Keep Vein Open Last Admin: 09/10/19 12:35 Dose: 10 ml Documented by: Discontinued Medications Acetaminophen (Tylenol) 650 mg PO NOW ONE Stop: 09/10/19 14:09 Last Admin: 09/10/19 14:21 Dose: 650 mg Documented by: Carbidopa/Levodopa (Sinemet Cr 50-200 Mg) 1 tab PO BEDTIME [facility] Carbidopa/Levodopa (Sinemet 25-100 Mg) 1 tab PO TID@0600,0900,1500 [facility] - Exam General: Alert, Oriented, Cooperative, No Acute Distress Lungs: Clear to Auscultation, Normal Respiratory Effort Cardiovascular: Regular Rate, Regular Rhythm GI/Abdominal Exam: Normal Bowel Sounds, Soft, Non-Tender, No Distention Extremities: No Pedal Edema, Other (Cogwheel rigidity, pill rolling tremor.) Peripheral Pulses: 2+: Radial (L), Radial (R) Psy/Mental Status: Alert, Other (Flat affect) Sepsis Event Note - Evaluation Sepsis Screening Result: No Definite Risk - Focused Exam Vital Signs: Vital Signs Temp Pulse Resp BP Pulse Ox 09/11/19 08:00 97.7 F 89 18 123/62 95 09/11/19 00:00 97.4 F 64 18 102/61 94 L Date Exam was Performed: 09/11/19 Time Exam was Performed: 11:35 - Problem List & Annotations (1) Weakness SNOMED Code(s): 38568484 Code(s): R53.1 - WEAKNESS Status: Acute Current Visit: Yes (2) Unable to walk SNOMED Code(s): 840685840 Code(s): R26.2 - DIFFICULTY IN WALKING, NOT ELSEWHERE CLASSIFIED Status: Acute Current Visit: Yes (3) Parkinson disease SNOMED Code(s): 04527941 Code(s): G20 - PARKINSON'S DISEASE Status: Chronic Current Visit: No (4) Coarse tremors SNOMED Code(s): 96550789 Code(s): G25.2 - OTHER SPECIFIED FORMS OF TREMOR Status: Acute Current Visit: Yes (5) Cogwheel rigidity SNOMED Code(s): 24684543 Code(s): R29.898 - OT SYMPTOMS AND SIGNS INVOLVING THE MUSCULOSKELETAL SYSTEM Status: Acute Current Visit: Yes (6) Pill rolling tremors SNOMED Code(s): 631631705 Code(s): R25.1 - TREMOR, UNSPECIFIED Status: Acute Current Visit: Yes (7) S/P total knee arthroplasty SNOMED Code(s): 5789321877167, 057770858, 9050488437053 Code(s): Z96.659 - PRESENCE OF UNSPECIFIED ARTIFICIAL KNEE JOINT Status: Acute Current Visit: No Onset Date: 02/02/17 Qualifiers: Laterality: bilateral Qualified Code(s): Z96.653 - Presence of artificial knee joint, bilateral (8) CKD (chronic kidney disease) SNOMED Code(s): 716518055 Code(s): N18.9 - CHRONIC KIDNEY DISEASE, UNSPECIFIED Status: Chronic Current Visit: No Qualifiers: Chronic kidney disease stage: stage 3 (moderate) Qualified Code(s): N18.3 - Chronic kidney disease, stage 3 (moderate) (9) Factor 5 Leiden mutation, heterozygous SNOMED Code(s): 693484955 Code(s): D68.51 - ACTIVATED PROTEIN C RESISTANCE Status: Chronic Current Visit: No (10) GERD (gastroesophageal reflux disease) SNOMED Code(s): 032667437 Code(s): K21.9 - GASTRO-ESOPHAGEAL REFLUX DISEASE WITHOUT ESOPHAGITIS Status: Chronic Current Visit: No (11) MDD (major depressive disorder) SNOMED Code(s): 732420990 Code(s): F32.9 - MAJOR DEPRESSIVE DISORDER, SINGLE EPISODE, UNSPECIFIED Status: Chronic Current Visit: No - Problem List Review Problem List Initiated/Reviewed/Updated: Yes - My Orders Last 24 Hours: My Active Orders 09/10/19 15:35 Antiembolic Devices [RC] .Routine Oxygen Therapy [RC] PRN Up With Assistance [RC] ASDIRECTED Up to Chair [RC] ASDIRECTED Vital Signs [RC] QSHIFT Resuscitation Status Routine 09/10/19 15:36 Antiembolic Hose [OM.PC] Per Unit Routine 09/10/19 15:38 Acetaminophen [Tylenol Extra Strength] 1,000 mg PO Q6H PRN Furosemide [Lasix] 40 mg PO ASDIRECTED PRN 09/10/19 15:59 Carbidopa/Levodopa [Sinemet Cr 50-200 mg] 1 tab PO ASDIRECTED PRN 09/10/19 Dinner Regular Diet [DIET] 09/10/19 18:00 Rivaroxaban [Xarelto] 20 mg PO WITHDINNER 09/10/19 20:00 Carbidopa/Levodopa [Sinemet Cr 50-200 mg] 1 tab PO BEDTIME 09/10/19 21:00 Docusate Sodium/Sennosides [Senna Plus] 2 tab PO BID Mirtazapine [Remeron] 30 mg PO BEDTIME 09/11/19 06:00 OT Evaluation and Treatment [CONS] Routine PT Evaluation and Treatment [CONS] Routine Carbidopa/Levodopa [Sinemet 25-100 mg] 0.5 tab PO TID@0600,0900,1500 09/11/19 09:00 Calcium Carbonate [Oyster Shell Calcium] 1,000 mg PO DAILY Multivitamins [Tab-A-William] 1 tab PO DAILY - Plan Plan:: 1. Weakness, unable to walk secondary to increased stiffness related to her Parkinson's Disease. Required standing lift, 2 person assist in ER and on floor. Her bedtime Sinemet doses unchanged and restarted Sinemet 25/100 mg 1/2 tab tid at 0600, 0900, 1500. Will not change her depression medication at this time. 2. PT/OT evaluation and treatment, needs NH placement as family are not able to care for her at home. 3. Regular diet. 4. DVT prophylaxis: TEDs BLE, Xarelto daily(has Factor V Leiden). 5. DNR/DNI per patient and advance directive. 6. Will adjust treatments as necessary.
[2019-09-11] MEDS: Mirtazapine 30 MG Tab PO SCH (21:06)
[2019-09-11] MEDS: Carbidopa/Levodopa 50-200 MG Tab.ER PO SCH (21:07)
[2019-09-12] MEDS: Carbidopa/Levodopa 25-100 MG Tab PO SCH ×3 (05:31→15:16)
[2019-09-12] MEDS: Calcium Carbonate 500 MG Tablet PO SCH (08:43)
[2019-09-12] MEDS: Multivitamin Tab PO SCH (08:43)
[2019-09-12] MEDS: Acetaminophen 500 MG Tab PO PRN ×2 (10:57→22:16)
--- NOTE | 2019-09-12 12:51 | PCM.PN ---
- General Info Date of Service: 09/12/19 Subjective Update: She forgot to take her Sinemet overnight, can't feed herself this morning but feels less stiff. No fevers, chills, shortness of breath. Usually takes Senna 2 tab with her Xarelto at home so she can have a bowel movement, has not had one today. No abdominal pain. Functional Status: Reports: Tolerating Diet (needs help to eat). Denies: New Symptoms - Patient Data Vitals - Most Recent: Last Vital Signs Temp 98 F 09/11/19 16:00 Pulse 63 09/12/19 03:30 Resp 18 09/12/19 03:30 BP 106/53 L 09/12/19 03:30 Pulse Ox 95 09/12/19 03:30 Weight - Most Recent: 188 lb 1.6 oz Med Orders - Current: Current Medications Acetaminophen (Tylenol Extra Strength) 1,000 mg PO Q6H PRN PRN Reason: MILD PAIN Last Admin: 09/12/19 10:57 Dose: 1,000 mg Documented by: Calcium Carbonate/Glycine (Oyster Shell Calcium) 1,000 mg PO DAILY [facility] Last Admin: 09/12/19 08:43 Dose: 1,000 mg Documented by: Carbidopa/Levodopa (Sinemet Cr 50-200 Mg) 1 tab PO ASDIRECTED PRN PRN Reason: PARKINSONS Last Admin: 09/11/19 01:18 Dose: 1 tab Documented by: Carbidopa/Levodopa (Sinemet 25-100 Mg) 0.5 tab PO TID@0600,0900,1500 [facility] Last Admin: 09/12/19 08:44 Dose: 0.5 tab Documented by: Carbidopa/Levodopa (Sinemet Cr 50-200 Mg) 1 tab PO BEDTIME [facility] Last Admin: 09/11/19 21:07 Dose: 1 tab Documented by: Furosemide (Lasix) 40 mg PO ASDIRECTED PRN PRN Reason: Edema Mirtazapine (Remeron) 30 mg PO BEDTIME [facility] Last Admin: 09/11/19 21:06 Dose: 30 mg Documented by: Multivitamins/Minerals/Vitamin C (Tab-A-William) 1 tab PO DAILY [facility] Last Admin: 09/12/19 08:43 Dose: 1 tab Documented by: Rivaroxaban (Xarelto) 20 mg PO WITHDINNER [facility] Last Admin: 09/11/19 18:08 Dose: 20 mg Documented by: Senna/Docusate Sodium (Senna Plus) 2 tab PO BID [facility] Last Admin: 09/12/19 08:44 Dose: 2 tab Documented by: Sodium Chloride (Saline Flush) 10 ml FLUSH ASDIRECTED PRN PRN Reason: Keep Vein Open Last Admin: 09/10/19 12:35 Dose: 10 ml Documented by: Discontinued Medications Acetaminophen (Tylenol) 650 mg PO NOW ONE Stop: 09/10/19 14:09 Last Admin: 09/10/19 14:21 Dose: 650 mg Documented by: Carbidopa/Levodopa (Sinemet Cr 50-200 Mg) 1 tab PO BEDTIME [facility] Carbidopa/Levodopa (Sinemet 25-100 Mg) 1 tab PO TID@0600,0900,1500 [facility] Sodium Chloride (Normal Saline) 1,000 mls @ 999 mls/hr IV ASDIRECTED [facility] Last Admin: 09/10/19 12:34 Dose: 999 mls/hr Documented by: - Exam General: Alert, Oriented, Cooperative, No Acute Distress Lungs: Clear to Auscultation, Normal Respiratory Effort Cardiovascular: Regular Rate, Regular Rhythm GI/Abdominal Exam: Normal Bowel Sounds, Soft, Non-Tender, No Distention Neurological: No New Focal Deficit, Other (parkinsons tremors) Sepsis Event Note - Evaluation Sepsis Screening Result: No Definite Risk - Focused Exam Vital Signs: Vital Signs Pulse Resp BP Pulse Ox 09/12/19 03:30 63 18 106/53 L 95 Date Exam was Performed: 09/12/19 Time Exam was Performed: 12:48 - Problem List & Annotations (1) Weakness SNOMED Code(s): 93087503 Code(s): R53.1 - WEAKNESS Status: Acute Current Visit: Yes (2) Unable to walk SNOMED Code(s): 056663098 Code(s): R26.2 - DIFFICULTY IN WALKING, NOT ELSEWHERE CLASSIFIED Status: Acute Current Visit: Yes (3) Parkinson disease SNOMED Code(s): 03685676 Code(s): G20 - PARKINSON'S DISEASE Status: Chronic Current Visit: No (4) Coarse tremors SNOMED Code(s): 04253326 Code(s): G25.2 - OTHER SPECIFIED FORMS OF TREMOR Status: Acute Current Visit: Yes (5) Cogwheel rigidity SNOMED Code(s): 40898098 Code(s): R29.898 - [facility] SYMPTOMS AND SIGNS INVOLVING THE MUSCULOSKELETAL SYSTEM Status: Acute Current Visit: Yes (6) Pill rolling tremors SNOMED Code(s): 722702972 Code(s): R25.1 - TREMOR, UNSPECIFIED Status: Acute Current Visit: Yes (7) S/P total knee arthroplasty SNOMED Code(s): 7937240674700, 326768720, 9448913304072 Code(s): Z96.659 - PRESENCE OF UNSPECIFIED ARTIFICIAL KNEE JOINT Status: Acute Current Visit: No Onset Date: 02/02/17 Qualifiers: Laterality: bilateral Qualified Code(s): Z96.653 - Presence of artificial knee joint, bilateral (8) CKD (chronic kidney disease) SNOMED Code(s): 634433443 Code(s): N18.9 - CHRONIC KIDNEY DISEASE, UNSPECIFIED Status: Chronic Current Visit: No Qualifiers: Chronic kidney disease stage: stage 3 (moderate) Qualified Code(s): N18.3 - Chronic kidney disease, stage 3 (moderate) (9) Factor 5 Leiden mutation, heterozygous SNOMED Code(s): 028745657 Code(s): D68.51 - ACTIVATED PROTEIN C RESISTANCE Status: Chronic Current Visit: No (10) GERD (gastroesophageal reflux disease) SNOMED Code(s): 844104216 Code(s): K21.9 - GASTRO-ESOPHAGEAL REFLUX DISEASE WITHOUT ESOPHAGITIS Status: Chronic Current Visit: No (11) MDD (major depressive disorder) SNOMED Code(s): 353539173 Code(s): F32.9 - MAJOR DEPRESSIVE DISORDER, SINGLE EPISODE, UNSPECIFIED Status: Chronic Current Visit: No - Problem List Review Problem List Initiated/Reviewed/Updated: Yes - My Orders Last 24 Hours: My Active Orders 09/12/19 08:28 Discontinue Saline Lock [Peripheral IV Discontinue] [OM.PC] Routine - Plan Plan:: 1. Weakness, unable to walk secondary to increased stiffness related to her Parkinson's Disease. Her bedtime Sinemet doses unchanged and restarted Sinemet 25/100 mg 1/2 tab tid at 0600, 0900, 1500. Will not change her depression medication at this time. 2. PT/OT evaluation and treatment, needs NH placement as family are not able to care for her at home. 3. Senna 2 tab with dinner daily. 4. Will adjust treatments as necessary.
[2019-09-12] MEDS: Mirtazapine 30 MG Tab PO SCH (20:05)
[2019-09-12] MEDS: Carbidopa/Levodopa 50-200 MG Tab.ER PO SCH (20:06)
[2019-09-13] MEDS: Carbidopa/Levodopa 25-100 MG Tab PO SCH ×3 (05:23→15:30)
[2019-09-13] MEDS: Calcium Carbonate 500 MG Tablet PO SCH (08:31)
[2019-09-13] MEDS: Multivitamin Tab PO SCH (08:32)
[2019-09-13] MEDS: Acetaminophen 500 MG Tab PO PRN ×2 (13:08→22:28)
--- NOTE | 2019-09-13 16:13 | PCM.PN ---
- General Info Date of Service: 09/13/19 Subjective Update: Feeling a little better, not had a bowel movement, states she was taking Senna 3 tab at night rather than 2 tab bid. PT/OT recommended going to swing bed first to see if she improves and if she doesn't progress then look at NH placement. - Patient Data Vitals - Most Recent: Last Vital Signs Temp 97.7 F 09/13/19 08:20 Pulse 76 09/13/19 08:20 Resp 18 09/13/19 08:20 BP 132/55 L 09/13/19 08:20 Pulse Ox 97 09/13/19 08:20 Weight - Most Recent: 188 lb 1.6 oz Med Orders - Current: Current Medications Acetaminophen (Tylenol Extra Strength) 1,000 mg PO Q6H PRN PRN Reason: MILD PAIN Last Admin: 09/13/19 13:08 Dose: 1,000 mg Documented by: Calcium Carbonate/Glycine (Oyster Shell Calcium) 1,000 mg PO DAILY [facility] Last Admin: 09/13/19 08:31 Dose: 1,000 mg Documented by: Carbidopa/Levodopa (Sinemet Cr 50-200 Mg) 1 tab PO ASDIRECTED PRN PRN Reason: PARKINSONS Last Admin: 09/11/19 01:18 Dose: 1 tab Documented by: Carbidopa/Levodopa (Sinemet 25-100 Mg) 0.5 tab PO TID@0600,0900,1500 [facility] Last Admin: 09/13/19 15:30 Dose: 0.5 tab Documented by: Carbidopa/Levodopa (Sinemet Cr 50-200 Mg) 1 tab PO BEDTIME [facility] Last Admin: 09/12/19 20:06 Dose: 1 tab Documented by: Furosemide (Lasix) 40 mg PO ASDIRECTED PRN PRN Reason: Edema Mirtazapine (Remeron) 30 mg PO BEDTIME [facility] Last Admin: 09/12/19 20:05 Dose: 30 mg Documented by: Multivitamins/Minerals/Vitamin C (Tab-A-William) 1 tab PO DAILY [facility] Last Admin: 09/13/19 08:32 Dose: 1 tab Documented by: Rivaroxaban (Xarelto) 20 mg PO WITHDINNER [facility] Last Admin: 09/12/19 17:15 Dose: 20 mg Documented by: Senna/Docusate Sodium (Senna Plus) 2 tab PO BID [facility] Last Admin: 09/13/19 08:31 Dose: 2 tab Documented by: Sodium Chloride (Saline Flush) 10 ml FLUSH ASDIRECTED PRN PRN Reason: Keep Vein Open Last Admin: 09/10/19 12:35 Dose: 10 ml Documented by: Discontinued Medications Acetaminophen (Tylenol) 650 mg PO NOW ONE Stop: 09/10/19 14:09 Last Admin: 09/10/19 14:21 Dose: 650 mg Documented by: Carbidopa/Levodopa (Sinemet Cr 50-200 Mg) 1 tab PO BEDTIME [facility] Carbidopa/Levodopa (Sinemet 25-100 Mg) 1 tab PO TID@0600,0900,1500 [facility] Sodium Chloride (Normal Saline) 1,000 mls @ 999 mls/hr IV ASDIRECTED [facility] Last Admin: 09/10/19 12:34 Dose: 999 mls/hr Documented by: - Exam General: Alert, Oriented, Cooperative, No Acute Distress Lungs: Clear to Auscultation, Normal Respiratory Effort Cardiovascular: Regular Rate, Regular Rhythm GI/Abdominal Exam: Normal Bowel Sounds, Soft, Non-Tender, No Distention Extremities: No Pedal Edema Peripheral Pulses: 2+: Radial (L), Radial (R) Neurological: No New Focal Deficit, Other (tremors slower today, still stiff) Sepsis Event Note - Evaluation Sepsis Screening Result: No Definite Risk - Focused Exam Vital Signs: Vital Signs Temp Pulse Resp BP Pulse Ox 09/13/19 08:20 97.7 F 76 18 132/55 L 97 Date Exam was Performed: 09/13/19 Time Exam was Performed: 16:08 - Problem List & Annotations (1) Weakness SNOMED Code(s): 90799122 Code(s): R53.1 - WEAKNESS Status: Acute Current Visit: Yes (2) Unable to walk SNOMED Code(s): 206928338 Code(s): R26.2 - DIFFICULTY IN WALKING, NOT ELSEWHERE CLASSIFIED Status: Acute Current Visit: Yes (3) Parkinson disease SNOMED Code(s): 02926820 Code(s): G20 - PARKINSON'S DISEASE Status: Chronic Current Visit: No (4) Coarse tremors SNOMED Code(s): 23510884 Code(s): G25.2 - OTHER SPECIFIED FORMS OF TREMOR Status: Acute Current Visit: Yes (5) Cogwheel rigidity SNOMED Code(s): 02686053 Code(s): R29.898 - OT SYMPTOMS AND SIGNS INVOLVING THE MUSCULOSKELETAL SYSTEM Status: Acute Current Visit: Yes (6) Pill rolling tremors SNOMED Code(s): 822118443 Code(s): R25.1 - TREMOR, UNSPECIFIED Status: Acute Current Visit: Yes (7) S/P total knee arthroplasty SNOMED Code(s): 1747843209272, 397643116, 2465472258368 Code(s): Z96.659 - PRESENCE OF UNSPECIFIED ARTIFICIAL KNEE JOINT Status: Acute Current Visit: No Onset Date: 02/02/17 Qualifiers: Laterality: bilateral Qualified Code(s): Z96.653 - Presence of artificial knee joint, bilateral (8) CKD (chronic kidney disease) SNOMED Code(s): 583174851 Code(s): N18.9 - CHRONIC KIDNEY DISEASE, UNSPECIFIED Status: Chronic Current Visit: No Qualifiers: Chronic kidney disease stage: stage 3 (moderate) Qualified Code(s): N18.3 - Chronic kidney disease, stage 3 (moderate) (9) Factor 5 Leiden mutation, heterozygous SNOMED Code(s): 540855148 Code(s): D68.51 - ACTIVATED PROTEIN C RESISTANCE Status: Chronic Current Visit: No (10) GERD (gastroesophageal reflux disease) SNOMED Code(s): 305124274 Code(s): K21.9 - GASTRO-ESOPHAGEAL REFLUX DISEASE WITHOUT ESOPHAGITIS Status: Chronic Current Visit: No (11) MDD (major depressive disorder) SNOMED Code(s): 457984565 Code(s): F32.9 - MAJOR DEPRESSIVE DISORDER, SINGLE EPISODE, UNSPECIFIED Status: Chronic Current Visit: No - Problem List Review Problem List Initiated/Reviewed/Updated: Yes - Plan Plan:: 1. Weakness, Sinemet doses 50/200 mg at 2000 and as needed between 9047-4623 if can't sleep & Sinemet 25/100 mg 1/2 tab tid at 0600, 0900, 1500. Will not change her depression medication at this time. 2. PT/OT evaluation and treatment, recommending swing bed placement to see if she improves. 3. Senna 2 tab bid, if needed will switch to 3 tabs at night. 4. Will adjust treatments as necessary.
[2019-09-13] MEDS: Carbidopa/Levodopa 50-200 MG Tab.ER PO SCH (20:15)
[2019-09-13] MEDS: Mirtazapine 30 MG Tab PO SCH (20:15)
[2019-09-14] MEDS: Carbidopa/Levodopa 25-100 MG Tab PO SCH ×3 (06:07→15:07)
[2019-09-14] MEDS: Acetaminophen 500 MG Tab PO PRN (06:10)
[2019-09-14] MEDS: Calcium Carbonate 500 MG Tablet PO SCH (08:03)
[2019-09-14] MEDS: Multivitamin Tab PO SCH (08:03)
--- NOTE | 2019-09-14 14:12 | PCM.PN ---
- General Info Date of Service: 09/14/19 Subjective Update: Penny had bowel movement yesterday, usually once a day in the morning. Tremors greatly improved today from admission, she states they get worse when she is agitated and seems to be in the afternoon. Has appointment in Oct with Dr Fernandez with [facility], will see if we can get the appointment moved up to a virtual visit. Waiting on approval from insurance to move her to swing bed for therapies. - Patient Data Vitals - Most Recent: Last Vital Signs Temp 97.1 F 09/13/19 23:56 Pulse 74 09/13/19 23:56 Resp 18 09/13/19 23:56 BP 144/82 H 09/13/19 23:56 Pulse Ox 96 09/13/19 23:56 Weight - Most Recent: 189 lb Med Orders - Current: Current Medications Acetaminophen (Tylenol Extra Strength) 1,000 mg PO Q6H PRN PRN Reason: MILD PAIN Last Admin: 09/14/19 06:10 Dose: 1,000 mg Documented by: Calcium Carbonate/Glycine (Oyster Shell Calcium) 1,000 mg PO DAILY [facility] Last Admin: 09/14/19 08:03 Dose: 1,000 mg Documented by: Carbidopa/Levodopa (Sinemet Cr 50-200 Mg) 1 tab PO ASDIRECTED PRN PRN Reason: PARKINSONS Last Admin: 09/11/19 01:18 Dose: 1 tab Documented by: Carbidopa/Levodopa (Sinemet 25-100 Mg) 0.5 tab PO TID@0600,0900,1500 [facility] Last Admin: 09/14/19 08:03 Dose: 0.5 tab Documented by: Carbidopa/Levodopa (Sinemet Cr 50-200 Mg) 1 tab PO BEDTIME [facility] Last Admin: 09/13/19 20:15 Dose: 1 tab Documented by: Furosemide (Lasix) 40 mg PO ASDIRECTED PRN PRN Reason: Edema Mirtazapine (Remeron) 30 mg PO BEDTIME [facility] Last Admin: 09/13/19 20:15 Dose: 30 mg Documented by: Multivitamins/Minerals/Vitamin C (Tab-A-William) 1 tab PO DAILY [facility] Last Admin: 09/14/19 08:03 Dose: 1 tab Documented by: Rivaroxaban (Xarelto) 20 mg PO [facility]DINNER [facility] Last Admin: 09/13/19 17:37 Dose: 20 mg Documented by: Senna/Docusate Sodium (Senna Plus) 2 tab PO BID [facility] Last Admin: 09/14/19 08:03 Dose: 2 tab Documented by: Sodium Chloride (Saline Flush) 10 ml FLUSH ASDIRECTED PRN PRN Reason: Keep Vein Open Last Admin: 09/10/19 12:35 Dose: 10 ml Documented by: Discontinued Medications Acetaminophen (Tylenol) 650 mg PO NOW ONE Stop: 09/10/19 14:09 Last Admin: 09/10/19 14:21 Dose: 650 mg Documented by: Carbidopa/Levodopa (Sinemet Cr 50-200 Mg) 1 tab PO BEDTIME [facility] Carbidopa/Levodopa (Sinemet 25-100 Mg) 1 tab PO TID@0600,0900,1500 [facility] Sodium Chloride (Normal Saline) 1,000 mls @ 999 mls/hr IV ASDIRECTED [facility] Last Admin: 09/10/19 12:34 Dose: 999 mls/hr Documented by: - Exam General: Alert, Oriented, Cooperative, No Acute Distress Lungs: Clear to Auscultation, Normal Respiratory Effort Cardiovascular: Regular Rate, Regular Rhythm GI/Abdominal Exam: Normal Bowel Sounds, Soft, Non-Tender, No Distention Extremities: No Pedal Edema Peripheral Pulses: 2+: Radial (L), Radial (R) Neurological: No New Focal Deficit, Other (pill rolling tremor improved, BUE/BLE tremors improved 50%) Sepsis Event Note - Evaluation Sepsis Screening Result: No Definite Risk - Focused Exam Date Exam was Performed: 09/14/19 Time Exam was Performed: 14:05 - Problem List & Annotations (1) Weakness SNOMED Code(s): 10599450 Code(s): R53.1 - WEAKNESS Status: Acute Current Visit: Yes (2) Unable to walk SNOMED Code(s): 820786844 Code(s): R26.2 - DIFFICULTY IN WALKING, NOT ELSEWHERE CLASSIFIED Status: Acute Current Visit: Yes (3) Parkinson disease SNOMED Code(s): 94396571 Code(s): G20 - PARKINSON'S DISEASE Status: Chronic Current Visit: No (4) Coarse tremors SNOMED Code(s): 75840356 Code(s): G25.2 - OTHER SPECIFIED FORMS OF TREMOR Status: Acute Current Visit: Yes (5) Cogwheel rigidity SNOMED Code(s): 05259745 Code(s): R29.898 - OT SYMPTOMS AND SIGNS INVOLVING THE MUSCULOSKELETAL SYSTEM Status: Acute Current Visit: Yes (6) Pill rolling tremors SNOMED Code(s): 883140542 Code(s): R25.1 - TREMOR, UNSPECIFIED Status: Acute Current Visit: Yes (7) S/P total knee arthroplasty SNOMED Code(s): 5416300822614, 842866392, 8243648195457 Code(s): Z96.659 - PRESENCE OF UNSPECIFIED ARTIFICIAL KNEE JOINT Status: Acute Current Visit: No Onset Date: 02/02/17 Qualifiers: Laterality: bilateral Qualified Code(s): Z96.653 - Presence of artificial knee joint, bilateral (8) CKD (chronic kidney disease) SNOMED Code(s): 784173864 Code(s): N18.9 - CHRONIC KIDNEY DISEASE, UNSPECIFIED Status: Chronic Current Visit: No Qualifiers: Chronic kidney disease stage: stage 3 (moderate) Qualified Code(s): N18.3 - Chronic kidney disease, stage 3 (moderate) (9) Factor 5 Leiden mutation, heterozygous SNOMED Code(s): 359803543 Code(s): D68.51 - ACTIVATED PROTEIN C RESISTANCE Status: Chronic Current Visit: No (10) GERD (gastroesophageal reflux disease) SNOMED Code(s): 960109595 Code(s): K21.9 - GASTRO-ESOPHAGEAL REFLUX DISEASE WITHOUT ESOPHAGITIS Status: Chronic Current Visit: No (11) MDD (major depressive disorder) SNOMED Code(s): 076198312 Code(s): F32.9 - MAJOR DEPRESSIVE DISORDER, SINGLE EPISODE, UNSPECIFIED Status: Chronic Current Visit: No - Problem List Review Problem List Initiated/Reviewed/Updated: Yes - Plan Plan:: 1. Weakness, Sinemet doses 50/200 mg at 2000 and as needed between 4789-6458 if can't sleep & Sinemet 25/100 mg 1/2 tab tid at 0600, 0900, 1500. Will not change her depression medication at this time until see by psychiatry, will try to get appt with Dr Fernandez moved up and changed to virtual visit once she is moved to swing bed. 2. PT/OT evaluation and treatment, recommending swing bed placement to see if she improves. 3. Senna 2 tab bid. 4. Will adjust treatments as necessary.
[2019-09-14] MEDS: Carbidopa/Levodopa 50-200 MG Tab.ER PO SCH (20:50)
[2019-09-14] MEDS: Mirtazapine 30 MG Tab PO SCH (20:51)
[2019-09-15] MEDS: Acetaminophen 500 MG Tab PO PRN (03:53)
[2019-09-15] MEDS: Carbidopa/Levodopa 25-100 MG Tab PO SCH ×2 (05:53→09:42)
--- NOTE | 2019-09-15 09:19 | PCM.DCSUM1 ---
Discharge Summary - Hospital Course HPI Initial Comments: Penny presented to ER this morning as she could not walk without assistance this morning, required her sister to help her transfer, she also had to feed her this morning. She has noticed worsening stiffness over the past 1 1/2-2 weeks since she was weaned off her TID dose of Sinemet, she still takes Sinemet 50/200 mg at 2000 and then an as needed dose between 2300 and 0300 if she is still awake. She is quite tremulous and Dr Hernandez, [facility] had weaned her dose to see if her tremors improved, they have remained the same. She was able to transfer herself to the bathroom overnight but not this morning, also usually is able to feed herself. She is incontinent of urine, so usually wears a pad, with help of her sister, she used her motorized scooter to get to the bathroom and transfer this morning to have a bowel movement. No fevers, chills, cough, shortness of breath, chest pain, abdominal pain, nausea, vomiting or diarrhea. No dysuria or frequency. No rashes. She has been more depressed lately, was on Trintellix but was not helping. She presented to [facility] on August 25, 2019 with suicidal ideation, was seen by Psychiatry and Trintellix was stopped, kept on Remeron and was due to follow up with Dr Fernandez. Spoke with Dr Vaughan, [facility] field education director, advised to restart her Sinemet 25/100 mg IR 1/2 tab tid at 0600, 0900, 1500; she stated we should see improvement with rigidity over the next few days. She also reported that she has been on 4-5 SSRI/SNRIs in the past with Sertraline being the last one, on Seroquel in 2012, Viibryd Mar 2019, and Trintellix the latest one. Dr Vaughan stated she would leave a message for Dr Arron parra that she is an inpatient and what recommendations were given. Diagnosis: Stroke: No - Discharge Data Discharge Date: 09/15/19 Discharge Disposition: DC/Tfer W/I Hosp To Swing 61 Condition: Stable - Referral to Home Health Primary Care Physician: Carter Tamayo MD - Discharge Diagnosis/Problem(s) (1) Weakness SNOMED Code(s): 83096124 ICD Code: R53.1 - WEAKNESS Status: Acute Current Visit: Yes (2) Unable to walk SNOMED Code(s): 475553624 ICD Code: R26.2 - DIFFICULTY IN WALKING, NOT ELSEWHERE CLASSIFIED Status: Acute Current Visit: Yes (3) Parkinson disease SNOMED Code(s): 32503627 ICD Code: G20 - PARKINSON'S DISEASE Status: Chronic Current Visit: No (4) Coarse tremors SNOMED Code(s): 29812824 ICD Code: G25.2 - OTHER SPECIFIED FORMS OF TREMOR Status: Acute Current Visit: Yes (5) Cogwheel rigidity SNOMED Code(s): 01021215 ICD Code: R29.898 - OT SYMPTOMS AND SIGNS INVOLVING THE MUSCULOSKELETAL SYSTEM Status: Acute Current Visit: Yes (6) Pill rolling tremors SNOMED Code(s): 786085933 ICD Code: R25.1 - TREMOR, UNSPECIFIED Status: Acute Current Visit: Yes (7) S/P total knee arthroplasty SNOMED Code(s): 1963296036930, 427804824, 4094847162100 ICD Code: Z96.659 - PRESENCE OF UNSPECIFIED ARTIFICIAL KNEE JOINT Status: Acute Current Visit: No Onset Date: 02/02/17 Qualifiers: Laterality: bilateral Qualified Code(s): Z96.653 - Presence of artificial knee joint, bilateral (8) CKD (chronic kidney disease) SNOMED Code(s): 475132876 ICD Code: N18.9 - CHRONIC KIDNEY DISEASE, UNSPECIFIED Status: Chronic Current Visit: No Qualifiers: Chronic kidney disease stage: stage 3 (moderate) Qualified Code(s): N18.3 - Chronic kidney disease, stage 3 (moderate) (9) Factor 5 Leiden mutation, heterozygous SNOMED Code(s): 016099143 ICD Code: D68.51 - ACTIVATED PROTEIN C RESISTANCE Status: Chronic Current Visit: No (10) GERD (gastroesophageal reflux disease) SNOMED Code(s): 170309756 ICD Code: K21.9 - GASTRO-ESOPHAGEAL REFLUX DISEASE WITHOUT ESOPHAGITIS Status: Chronic Current Visit: No (11) MDD (major depressive disorder) SNOMED Code(s): 498206683 ICD Code: F32.9 - MAJOR DEPRESSIVE DISORDER, SINGLE EPISODE, UNSPECIFIED Status: Chronic Current Visit: No - Patient Summary/Data Consults: Consultations 09/11/19 06:00 OT Evaluation and Treatment [CONS] Routine Please Evaluate and Treat. OT Reason for Consult: ADL's This query below is only for informational purposes and is not editable. Admission Diagnosis/Problem: Weakness PT Evaluation and Treatment [CONS] Routine Please Evaluate and Treat. PT Reason for Consult: Ambulation This query below is only for informational purposes and is not editable. Admission Diagnosis/Problem: Weakness Hospital Course: Penny was restarted on her Sinemet 25/100 mg 1/2 tab at 0600, 0900, 1500, making improvements with reduction of her tremors and stiffness. Making slow progress with PT/OT, recommended swing bed instead of going straight to halfway. TIP done in [facility] on Wednesday came back negative. Had some constipation initially, Senna 2 tab bid, bowel movements have improved. Having generalized pain, takes Tylenol & Ibuprofen at home, was only getting Tylenol here, restarted her home dose of Ibuprofen but scheduled for today and will switch back to prn after a few days to get ahead of her pain. She forgets to ask for her overnight Sinemet 50/200 mg between 2300 and 0300, will discuss with nursing to give her reminders or may need to schedule it. Appt with Dr Fernandez with [facility] on Sep 27 at 1115, this is a virtual visit so she can do in swing bed. Insurance and screens completed and can go to swing bed today. - Patient Instructions Diet: Regular Diet as Tolerated Other/Special Instructions: Transfer to swing bed. - Discharge Plan *PRESCRIPTION DRUG MONITORING PROGRAM REVIEWED*: Not Applicable *COPY OF PRESCRIPTION DRUG MONITORING REPORT IN PATIENT DMITRI: Not Applicable Home Medications: Home Meds Biotin 10 mg PO DAILY 02/05/17 [History] Furosemide [Lasix] 40 mg PO DAILY PRN 02/05/17 [History] Multivitamin [Daily William] 1 tab PO DAILY 02/05/17 [History] Rivaroxaban [Xarelto] 20 mg PO WITHDINNER 02/05/17 [History] Acetaminophen [Tylenol Extra Strength] 1,000 mg PO Q6H PRN 11/17/18 [History] Calcium Carb, Citrate/Vit D3 [Citracal + D ER] 1 tab PO BID 11/17/18 [History] Carbidopa/Levodopa [Sinemet CR 50-200] 1 tab PO ASDIRECTED PRN 11/17/18 [History] Carbidopa/Levodopa [Sinemet CR 50-200] 1 tab PO BEDTIME 11/17/18 [History] Dexlansoprazole [Dexilant] 60 mg PO DAILY 11/17/18 [History] Mirtazapine 30 mg PO BEDTIME 11/17/18 [History] Sennosides/Docusate Sodium [Senna-S] 3 tab PO BEDTIME 11/17/18 [History] Ascorbic Acid [Vitamin C with Ny Hips] 1,000 mg PO DAILY 09/10/19 [History] Cannabidiol (Cbd) Extract [CBD Oil] 1,500 mg PO TID PRN 09/11/19 [History] Cholecalciferol (Vitamin D3) [Vitamin D] 10,000 unit PO DAILY 09/11/19 [History] Ibuprofen 200 mg PO Q6H PRN 09/11/19 [History] diphenhydrAMINE [Benadryl] 25 mg PO BEDTIME PRN 09/11/19 [History] Carbidopa/Levodopa [Carbidopa-Levodopa 25-100] 0.5 tab PO TID@0600,0900,1500 tablet 09/15/19 [Rx] Oxygen Therapy Mode: Room Air Forms: ED Department Discharge Referrals: Carter Tamayo MD [Primary Care Provider] - - Discharge Summary/Plan Comment DC Time >30 min.: No - General Info Date of Service: 09/15/19 Subjective Update: Penny had a rough night last night, forgot to ask for her overnight Sinemet. Has pain all over, usually takes Ibuprofen low dose as well as Tylenol at home. She has not been getting the Ibuprofen here. Approval to move to swing bed today. Spoke with Martha her sister, she has virtual appointment with Dr Fernandez with [facility] on Sep 27 at 1115 so will make sure Roomish marlon is on her iPad so she can do that appointment. - Patient Data Vitals - Most Recent: Last Vital Signs Temp 97.0 F 09/15/19 00:15 Pulse 77 09/15/19 00:15 Resp 18 09/15/19 00:15 BP 121/81 09/15/19 00:15 Pulse Ox 96 09/15/19 00:15 Weight - Most Recent: 188 lb 4.396 oz Med Orders - Current: Current Medications Acetaminophen (Tylenol Extra Strength) 500 mg PO Q6H [facility] Calcium Carbonate/Glycine (Oyster Shell Calcium) 1,000 mg PO DAILY [facility] Last Admin: 09/14/19 08:03 Dose: 1,000 mg Documented by: Carbidopa/Levodopa (Sinemet Cr 50-200 Mg) 1 tab PO ASDIRECTED PRN PRN Reason: PARKINSONS Last Admin: 09/11/19 01:18 Dose: 1 tab Documented by: Carbidopa/Levodopa (Sinemet 25-100 Mg) 0.5 tab PO TID@0600,0900,1500 [facility] Last Admin: 09/15/19 05:53 Dose: 0.5 tab Documented by: Carbidopa/Levodopa (Sinemet Cr 50-200 Mg) 1 tab PO BEDTIME [facility] Last Admin: 09/14/19 20:50 Dose: 1 tab Documented by: Furosemide (Lasix) 40 mg PO ASDIRECTED PRN PRN Reason: Edema Ibuprofen (Motrin) 200 mg PO Q6H [facility] Mirtazapine (Remeron) 30 mg PO BEDTIME [facility] Last Admin: 09/14/19 20:51 Dose: 30 mg Documented by: Multivitamins/Minerals/Vitamin C (Tab-A-William) 1 tab PO DAILY [facility] Last Admin: 09/14/19 08:03 Dose: 1 tab Documented by: Rivaroxaban (Xarelto) 20 mg PO WITHDINNER [facility] Last Admin: 09/14/19 18:26 Dose: 20 mg Documented by: Senna/Docusate Sodium (Senna Plus) 2 tab PO BID [facility] Last Admin: 09/14/19 20:50 Dose: 2 tab Documented by: Sodium Chloride (Saline Flush) 10 ml FLUSH ASDIRECTED PRN PRN Reason: Keep Vein Open Last Admin: 09/10/19 12:35 Dose: 10 ml Documented by: Discontinued Medications Acetaminophen (Tylenol) 650 mg PO NOW ONE Stop: 09/10/19 14:09 Last Admin: 09/10/19 14:21 Dose: 650 mg Documented by: Acetaminophen (Tylenol Extra Strength) 1,000 mg PO Q6H PRN PRN Reason: MILD PAIN Last Admin: 09/15/19 03:53 Dose: 1,000 mg Documented by: Carbidopa/Levodopa (Sinemet Cr 50-200 Mg) 1 tab PO BEDTIME [facility] Carbidopa/Levodopa (Sinemet 25-100 Mg) 1 tab PO TID@0600,0900,1500 [facility] Sodium Chloride (Normal Saline) 1,000 mls @ 999 mls/hr IV ASDIRECTED [facility] Last Admin: 09/10/19 12:34 Dose: 999 mls/hr Documented by: - Exam General: Reports: Alert, Oriented, Cooperative, No Acute Distress Lungs: Reports: Clear to Auscultation, Normal Respiratory Effort Cardiovascular: Reports: Regular Rate, Regular Rhythm GI/Abdominal Exam: Normal Bowel Sounds, Soft, Non-Tender, No Distention Extremities: No Pedal Edema Neurological: Reports: No New Focal Deficit, Other (tremors, stable.) *Q Meaningful Use (DIS) - VTE *Q VTE Anticoagulation Contraindications: Alternative TX Request PT (on Xarelto for Factor V Leiden)
[2019-09-15] MEDS: Calcium Carbonate 500 MG Tablet PO SCH (09:42)
[2019-09-15] MEDS: Multivitamin Tab PO SCH (09:42)
[2019-09-15] MEDS ORDERED: Ibuprofen 200 MG Tab PO SCH (10:00)
[2019-09-15] MEDS ORDERED: Acetaminophen 500 MG Tab PO SCH (10:00)
== END 2019-09-15 10:10 | disposition swing bed (61) | DRG 948 ==
LOC: FB.ED 11:20 → FB.MS 14:03
PROVIDERS: ADMIT Family Medicine; ATTEND Family Medicine
DX: R53.1 Weakness (principal); D68.51 Activated protein C resistance; R26.2 Difficulty in walking, not elsewhere classified; G25.2 Other specified forms of tremor; R29.898 Other symptoms and signs involving the musculoskeletal system; Z91.14 Patient's other noncompliance with medication regimen; Z66 Do not resuscitate; E86.0 Dehydration; N18.3 Chronic kidney disease, stage 3 (moderate); R79.89 Other specified abnormal findings of blood chemistry; H54.7 Unspecified visual loss; K59.00 Constipation, unspecified; H91.90 Unspecified hearing loss, unspecified ear; K21.9 Gastro-esophageal reflux disease without esophagitis; R32 Unspecified urinary incontinence; M19.90 Unspecified osteoarthritis, unspecified site; G89.29 Other chronic pain; M54.9 Dorsalgia, unspecified; G20 Parkinson's disease; Z86.73 Personal history of transient ischemic attack (TIA), and cerebral infarction without residual deficits; F32.9 Major depressive disorder, single episode, unspecified; Z68.33 Body mass index [BMI] 33.0-33.9, adult; F41.9 Anxiety disorder, unspecified; E66.9 Obesity, unspecified; Z90.49 Acquired absence of other specified parts of digestive tract; Z90.710 Acquired absence of both cervix and uterus; Z96.653 Presence of artificial knee joint, bilateral; Z88.8 Allergy status to other drugs, medicaments and biological substances; Z79.01 Long term (current) use of anticoagulants; Z79.899 Other long term (current) drug therapy
CPT/HCPCS: 36415; 71046; 83735; 84484; 85651; 86140; 93005; 99285; J7030; 97110-GO; 97110-GP; 97116-GP; 97161-GP; 97165-GO; 97530-GO; 97535-GO; A9270-GY

== ENCOUNTER 2019-09-15 10:11 | Inpatient (IN) | payer MEDICARE, MEDICAID ==
[2019-09-15] MEDS ORDERED: Carbidopa/Levodopa 50-200 MG Tab.ER PO PRN (10:40)
[2019-09-15] MEDS ORDERED: Furosemide 40 MG Tab PO PRN (10:40)
--- NOTE | 2019-09-15 10:45 | PCM.HP.2 ---
H&P History of Present Illness - General Date of Service: 09/15/19 Admit Problem/Dx: Admission Diagnosis/Problem Admission Diagnosis/Problem Parkinson's disease - History of Present Illness Initial Comments - Free Text/Narative: Acute HPI: Penny presented to ER this morning as she could not walk without assistance this morning, required her sister to help her transfer, she also had to feed her this morning. She has noticed worsening stiffness over the past 1 1/2-2 weeks since she was weaned off her TID dose of Sinemet, she still takes Sinemet 50/200 mg at 2000 and then an as needed dose between 2300 and 0300 if she is still awake. She is quite tremulous and Dr Hernandez, [facility] had weaned her dose to see if her tremors improved, they have remained the same. She was able to transfer herself to the bathroom overnight but not this morning, also usually is able to feed herself. She is incontinent of urine, so usually wears a pad, with help of her sister, she used her motorized scooter to get to the bathroom and transfer this morning to have a bowel movement. No fevers, chills, cough, shortness of breath, chest pain, abdominal pain, nausea, vomiting or diarrhea. No dysuria or frequency. No rashes. She has been more depressed lately, was on Trintellix but was not helping. She presented to [facility] on August 25, 2019 with suicidal ideation, was seen by Psychiatry and Trintellix was stopped, kept on Remeron and was due to follow up with Dr Fernandez. Spoke with Dr Vaughan, [facility] data migration lead, advised to restart her Sinemet 25/100 mg IR 1/2 tab tid at 0600, 0900, 1500; she stated we should see improvement with rigidity over the next few days. She also reported that she has been on 4-5 SSRI/SNRIs in the past with Sertraline being the last one, on Seroquel in 2012, Viibryd Mar 2019, and Trintellix the latest one. Dr Vaughan stated she would leave a message for Dr Hernandez that she is an inpatient and what recommendations were given. ACUTE HOSPITAL COURSE: Penny was restarted on her Sinemet 25/100 mg 1/2 tab at 0600, 0900, 1500, making improvements with reduction of her tremors and stiffness. Making slow progress with PT/OT, recommended swing bed instead of going straight to long-term. TIP done in [facility] on Wednesday came back negative. Had some constipation initially, Senna 2 tab bid, bowel movements have improved. Having generalized pain, takes Tylenol & Ibuprofen at home, was only getting Tylenol here, restarted her home dose of Ibuprofen but scheduled for today and will switch back to prn after a few days to get ahead of her pain. She forgets to ask for her overnight Sinemet 50/200 mg between 2300 and 0300, will discuss with nursing to give her reminders or may need to schedule it. Appt with Dr Fernandez with [facility] on Sep 27 at 1115, this is a virtual visit so she can do in swing bed. Insurance and screens completed and can go to swing bed today. - Related Data Allergies/Adverse Reactions: Allergies Allergy/AdvReac Type Severity Reaction Status Date / Time gabapentin Allergy Slurred Verified 09/10/19 14:44 Speech Home Medications: Home Meds Biotin 10 mg PO DAILY 02/05/17 [History] Furosemide [Lasix] 40 mg PO DAILY PRN 02/05/17 [History] Multivitamin [Daily William] 1 tab PO DAILY 02/05/17 [History] Rivaroxaban [Xarelto] 20 mg PO WITHDINNER 02/05/17 [History] Acetaminophen [Tylenol Extra Strength] 1,000 mg PO Q6H PRN 11/17/18 [History] Calcium Carb, Citrate/Vit D3 [Citracal + D ER] 1 tab PO BID 11/17/18 [History] Carbidopa/Levodopa [Sinemet CR 50-200] 1 tab PO ASDIRECTED PRN 11/17/18 [History] Carbidopa/Levodopa [Sinemet CR 50-200] 1 tab PO BEDTIME 11/17/18 [History] Dexlansoprazole [Dexilant] 60 mg PO DAILY 11/17/18 [History] Mirtazapine 30 mg PO BEDTIME 11/17/18 [History] Sennosides/Docusate Sodium [Senna-S] 3 tab PO BEDTIME 11/17/18 [History] Ascorbic Acid [Vitamin C with Ny Hips] 1,000 mg PO DAILY 09/10/19 [History] Cannabidiol (Cbd) Extract [CBD Oil] 1,500 mg PO TID PRN 09/11/19 [History] Cholecalciferol (Vitamin D3) [Vitamin D] 10,000 unit PO DAILY 09/11/19 [History] Ibuprofen 200 mg PO Q6H PRN 09/11/19 [History] diphenhydrAMINE [Benadryl] 25 mg PO BEDTIME PRN 09/11/19 [History] Carbidopa/Levodopa [Carbidopa-Levodopa 25-100] 0.5 tab PO TID@0600,0900,1500 tablet 09/15/19 [Rx] Past Medical History HEENT History: Reports: Hard of Hearing, Impaired Vision Respiratory History: Reports: SOB Gastrointestinal History: Reports: GERD Genitourinary History: Reports: Urinary Incontinence Musculoskeletal History: Reports: Arthritis, Back Pain, Chronic Neurological History: Reports: Headaches, Chronic, Parkinson's, TIA Psychiatric History: Reports: Anxiety, Depression, Suicidal Ideation Endocrine/Metabolic History: Reports: Obesity/BMI 30+ Hematologic History: Reports: Anticoagulation Therapy - Infectious Disease History Infectious Disease History: Reports: Chicken Pox, Measles - Past Surgical History Head Surgeries/Procedures: Reports: None HEENT Surgical History: Reports: Adenoidectomy, Oral Surgery, Tonsillectomy Respiratory Surgical History: Reports: None GI Surgical History: Reports: Cholecystectomy, Colonoscopy Female Surgical History: Reports: Breast Biopsy, Hysterectomy Neurological Surgical History: Reports: None Musculoskeletal Surgical History: Reports: Knee Replacement Social & Family History - Family History Family Medical History: Noncontributory - Caffeine Use Caffeine Use: Reports: Coffee, Soda H&P Review of Systems - Review of Systems: Review Of Systems: Comprehensive ROS is negative, except as noted in HPI. Exam - Exam Exam: See Below - Exam General: Alert, Oriented HEENT: PERRLA, Conjunctiva Clear, Mucosa Moist & [place] Lungs: Clear to Auscultation, Normal Respiratory Effort Cardiovascular: Regular Rate, Regular Rhythm GI/Abdominal Exam: Normal Bowel Sounds, Soft, Non-Tender, No Distention (Female) Exam: Deferred Rectal (Female) Exam: Deferred Back Exam: Normal Inspection Extremities: No Pedal Edema Peripheral Pulses: 2+: Radial (L), Radial (R) Skin: Warm, Dry, Intact Neuro Extensive - Mental Status: Normal Cognition Neuro Extensive - Motor, Sensory, Reflexes: CN II-XII Intact, Tremor (pill rolling, tremor BUE) Psychiatric: Depressed (Flat affect). No: Suicidal Ideation Sepsis Event Note - Focused Exam Date Exam was Performed: 09/15/19 Time Exam was Performed: 10:45 *Q Meaningful Use (ADM) - VTE *Q VTE Mechanical Contraindications *Q: At Risk for Falls - VTE Risk Assess *Q Each Risk Factor Represents 1 Point: Age 41 - 59 years, Obesity ( BMI > 25 kg/m2) Total Score 1 Point Risk Factors: 2 Each Risk Factor Represents 2 Points: None Total Score 2 Point Risk Factors: 0 Each Risk Factor Represents 3 Points: Positive factor V Leiden Total Score 3 Point Risk Factors: 3 Each Risk Factor Represents 5 Points: None Total Score 5 Point Risk Factors: 0 Venous Thromboembolism Risk Factor Score *Q: 5 - Problem List (1) Unable to walk SNOMED Code(s): 023067602 ICD Code: R26.2 - DIFFICULTY IN WALKING, NOT ELSEWHERE CLASSIFIED Status: Acute Current Visit: No (2) Weakness SNOMED Code(s): 90470316 ICD Code: R53.1 - WEAKNESS Status: Acute Current Visit: No (3) Parkinson disease SNOMED Code(s): 84554626 ICD Code: G20 - PARKINSON'S DISEASE Status: Chronic Current Visit: No (4) MDD (major depressive disorder) SNOMED Code(s): 491175824 ICD Code: F32.9 - MAJOR DEPRESSIVE DISORDER, SINGLE EPISODE, UNSPECIFIED Status: Chronic Current Visit: No (5) CKD (chronic kidney disease) SNOMED Code(s): 039056610 ICD Code: N18.9 - CHRONIC KIDNEY DISEASE, UNSPECIFIED Status: Chronic Current Visit: No Qualifiers: Chronic kidney disease stage: stage 3 (moderate) Qualified Code(s): N18.3 - Chronic kidney disease, stage 3 (moderate) (6) Factor 5 Leiden mutation, heterozygous SNOMED Code(s): 367446505 ICD Code: D68.51 - ACTIVATED PROTEIN C RESISTANCE Status: Chronic Current Visit: No (7) Anxiety SNOMED Code(s): 17694715 ICD Code: F41.9 - ANXIETY DISORDER, UNSPECIFIED Status: Chronic Current Visit: No (8) GERD (gastroesophageal reflux disease) SNOMED Code(s): 916285670 ICD Code: K21.9 - GASTRO-ESOPHAGEAL REFLUX DISEASE WITHOUT ESOPHAGITIS Status: Chronic Current Visit: No (9) Cogwheel rigidity SNOMED Code(s): 85275322 ICD Code: R29.898 - OTH SYMPTOMS AND SIGNS INVOLVING THE MUSCULOSKELETAL SYSTEM Status: Chronic Current Visit: No (10) Pill rolling tremors SNOMED Code(s): 843530021 ICD Code: R25.1 - TREMOR, UNSPECIFIED Status: Chronic Current Visit: No Problem List Initiated/Reviewed/Updated: Yes Orders Last 24hrs: Active Orders 24 hr Category Date Time Status Patient Status [ADT] Routine ADT 09/15/19 10:35 Active Antiembolic Devices [RC] .Routine Care 09/15/19 10:35 Active Height and Weight [RC] WEEKLY Care 09/15/19 10:35 Active May Shower [RC] ASDIRECTED Care 09/15/19 10:35 Active Oxygen Therapy [RC] PRN Care 09/15/19 10:35 Active Up With Assistance [RC] ASDIRECTED Care 09/15/19 10:35 Active Up to Chair [RC] ASDIRECTED Care 09/15/19 10:35 Active VTE/DVT Education [RC] Per Unit Routine Care 09/15/19 10:35 Active Vital Signs [RC] PER UNIT ROUTINE Care 09/15/19 10:35 Active OT Evaluation and Treatment [CONS] Routine Cons 09/15/19 10:35 Active PT Evaluation and Treatment [CONS] Routine Cons 09/15/19 10:35 Active Regular Diet [DIET] Diet 09/15/19 Lunch Active Acetaminophen [Tylenol Extra Strength] Med 09/15/19 10:45 Ordered 500 mg PO Q6H Calcium Carb, Citrate/Vit D3 [Citracal + D ER] Med 09/15/19 21:00 Ordered 1 tab PO BID Carbidopa/Levodopa [Sinemet 25-100 mg] Med 09/15/19 15:00 Ordered 0.5 tab PO TID@0600,0900,1500 Carbidopa/Levodopa [Sinemet Cr 50-200 mg] Med 09/15/19 10:40 Ordered 1 tab PO ASDIRECTED PRN Carbidopa/Levodopa [Sinemet Cr 50-200 mg] Med 09/15/19 21:00 Ordered 1 tab PO BEDTIME Cholecalciferol (Vitamin D3) [Vitamin D] Med 09/16/19 09:00 Ordered 10,000 unit PO DAILY Dexlansoprazole [Dexilant] Med 09/16/19 09:00 Ordered 60 mg PO DAILY Docusate Sodium/Sennosides [Senna Plus] Med 09/15/19 21:00 Ordered 3 tab PO BEDTIME Furosemide [Lasix] Med 09/15/19 10:40 Ordered 40 mg PO DAILY PRN Ibuprofen [Motrin] Med 09/15/19 10:45 Ordered 200 mg PO Q6H Mirtazapine [Remeron] Med 09/15/19 21:00 Ordered 30 mg PO BEDTIME Multivitamins [Tab-A-William] Med 09/16/19 09:00 Ordered 1 tab PO DAILY Rivaroxaban [Xarelto] Med 09/15/19 18:00 Ordered 20 mg PO WITHDINNER diphenhydrAMINE [Benadryl] Med 09/15/19 10:40 Ordered 25 mg PO BEDTIME PRN Antiembolic Hose [OM.PC] Per Unit Routine Oth 09/15/19 10:39 Ordered Resuscitation Status Routine Resus Stat 09/15/19 10:35 Ordered Medication Orders Acetaminophen (Tylenol Extra Strength) 500 mg PO Q6H [facility] Carbidopa/Levodopa (Sinemet 25-100 Mg) 0.5 tab PO TID@0600,0900,1500 [facility] Carbidopa/Levodopa (Sinemet Cr 50-200 Mg) 1 tab PO ASDIRECTED PRN PRN Reason: PARKINSONS Carbidopa/Levodopa (Sinemet Cr 50-200 Mg) 1 tab PO BEDTIME [facility] Diphenhydramine HCl (Benadryl) 25 mg PO BEDTIME PRN PRN Reason: Sleep Furosemide (Lasix) 40 mg PO DAILY PRN PRN Reason: Edema Ibuprofen (Motrin) 200 mg PO Q6H [facility] Mirtazapine (Remeron) 30 mg PO BEDTIME [facility] Multivitamins/Minerals/Vitamin C (Tab-A-William) 1 tab PO DAILY [facility] Non-Formulary Medication (Calcium Carb, Citrate/Vit D3 [Citracal + D Er]) 1 tab PO BID [facility] Non-Formulary Medication (Cholecalciferol (Vitamin D3) [Vitamin D]) 10,000 unit PO DAILY [facility] Non-Formulary Medication (Dexlansoprazole [Dexilant]) 60 mg PO DAILY [facility] Rivaroxaban (Xarelto) 20 mg PO WITHDINNER [facility] Senna/Docusate Sodium (Senna Plus) 3 tab PO BEDTIME [facility] Assessment/Plan Comment:: 1. Admit to Swing bed for rehab services with both PT/OT. 2. Parkinson: continue Sinemet 25/100 mg 1/2 tab at 0600, 0900 & 1500; Sinemet 50/200 mg at bedtime and as needed dose between 2300 & 0300 if she cannot sleep due to tremors. 3. Depression: Dr Fernandez virtual appt Sep 27 at 1115, Mirtazapine 30 mg at bedtime. 4. Constipation: Senna 3 tab at bedtime. 5. DVT prophylaxis: TEDs BLE, Xarelto 20 mg at dinner. 6. DNR/DNI per patient & advance directive. - Mortality Measure Prognosis:: Good
[2019-09-15] MEDS: Carbidopa/Levodopa 25-100 MG Tab PO SCH (15:06)
[2019-09-15] MEDS: Acetaminophen 500 MG Tab PO SCH ×2 (15:07→21:35)
[2019-09-15] MEDS: Ibuprofen 200 MG Tab PO SCH ×2 (15:07→21:35)
[2019-09-15] MEDS: Mirtazapine 30 MG Tab PO SCH (21:34)
[2019-09-15] MEDS: Calcium Carbonate 500 MG Tablet PO SCH (21:35)
[2019-09-15] MEDS: Carbidopa/Levodopa 50-200 MG Tab.ER PO SCH ×2 (21:35→23:48)
[2019-09-16] MEDS: Ibuprofen 200 MG Tab PO SCH ×4 (04:15→21:48)
[2019-09-16] MEDS: Acetaminophen 500 MG Tab PO SCH ×4 (04:15→21:48)
[2019-09-16] MEDS: Pantoprazole 40 MG Tab.CR PO SCH (06:29)
[2019-09-16] MEDS: Carbidopa/Levodopa 25-100 MG Tab PO SCH ×3 (06:29→15:26)
[2019-09-16] MEDS: Calcium Carbonate 500 MG Tablet PO SCH ×2 (08:37→21:48)
[2019-09-16] MEDS: Cholecalciferol (Vitamin D3) 25 MCG Tab PO SCH (08:37)
[2019-09-16] MEDS: Multivitamin Tab PO SCH (08:37)
[2019-09-16] MEDS: Mirtazapine 30 MG Tab PO SCH (21:48)
[2019-09-16] MEDS: Carbidopa/Levodopa 50-200 MG Tab.ER PO SCH ×2 (21:48→23:41)
[2019-09-17] MEDS: Ibuprofen 200 MG Tab PO SCH ×4 (05:00→21:39)
[2019-09-17] MEDS: Acetaminophen 500 MG Tab PO SCH ×4 (05:00→21:39)
[2019-09-17] MEDS: Carbidopa/Levodopa 25-100 MG Tab PO SCH ×3 (05:59→15:03)
[2019-09-17] MEDS: Pantoprazole 40 MG Tab.CR PO SCH (05:59)
[2019-09-17] MEDS: Multivitamin Tab PO SCH (09:07)
[2019-09-17] MEDS: Calcium Carbonate 500 MG Tablet PO SCH ×2 (09:07→21:39)
[2019-09-17] MEDS: Cholecalciferol (Vitamin D3) 25 MCG Tab PO SCH (09:07)
[2019-09-17] MEDS: Carbidopa/Levodopa 50-200 MG Tab.ER PO SCH ×2 (21:39→23:55)
[2019-09-17] MEDS: Mirtazapine 30 MG Tab PO SCH (21:39)
[2019-09-17] MEDS: diphenhydrAMINE 25 MG Cap PO PRN (23:55)
[2019-09-18] MEDS: Ibuprofen 200 MG Tab PO SCH ×4 (04:10→21:02)
[2019-09-18] MEDS: Acetaminophen 500 MG Tab PO SCH ×4 (04:10→21:02)
[2019-09-18] MEDS: Carbidopa/Levodopa 25-100 MG Tab PO SCH ×3 (07:26→15:18)
[2019-09-18] MEDS: Pantoprazole 40 MG Tab.CR PO SCH (07:27)
[2019-09-18] MEDS: Calcium Carbonate 500 MG Tablet PO SCH ×2 (08:45→21:01)
[2019-09-18] MEDS: Multivitamin Tab PO SCH (08:45)
[2019-09-18] MEDS: Cholecalciferol (Vitamin D3) 25 MCG Tab PO SCH (08:45)
--- NOTE | 2019-09-18 11:41 | PCM.PN ---
- General Info Date of Service: 09/18/19 Subjective Update: Penny is in better mood this morning, states she does hope she can go back to live with her sister since restarting her Sinemet and making progress with therapy. She was forgetting her as needed dose of Sinemet overnight so was scheduled at midnight. She didn't sleep well even with this and took at Benadryl around 4 am. She was up in the chair, dressed and feed herself breakfast this morning. Bowel movements are regular, soft. Dr Fernandez appointment for Sep 27. Discussed increasing her Mirtazapine as she had mentioned to staff increasing her antidepressants, this morning she stated she would like to keep it where it is at until she visits with Dr Fernandez with [facility]. - Patient Data Vitals - Most Recent: Last Vital Signs Temp 97.8 F 09/18/19 08:00 Pulse 68 09/18/19 08:00 Resp 18 09/18/19 08:00 BP 132/67 09/18/19 11:34 Pulse Ox 100 09/18/19 08:00 Weight - Most Recent: 188 lb Med Orders - Current: Current Medications Acetaminophen (Tylenol Extra Strength) 500 mg PO Q6H [facility] Last Admin: 09/18/19 09:54 Dose: 500 mg Documented by: Calcium Carbonate/Glycine (Oyster Shell Calcium) 500 mg PO BID [facility] Last Admin: 09/18/19 08:45 Dose: 500 mg Documented by: Carbidopa/Levodopa (Sinemet 25-100 Mg) 0.5 tab PO TID@0600,0900,1500 [facility] Last Admin: 09/18/19 08:45 Dose: 0.5 tab Documented by: Carbidopa/Levodopa (Sinemet Cr 50-200 Mg) 1 tab PO BEDTIME [facility] Last Admin: 09/17/19 21:39 Dose: 1 tab Documented by: Carbidopa/Levodopa (Sinemet Cr 50-200 Mg) 1 tab PO DAILY@0000 [facility] Last Admin: 09/17/19 23:55 Dose: 1 tab Documented by: Cholecalciferol (Vitamin D3) 50 mcg PO DAILY [facility] Last Admin: 09/18/19 08:45 Dose: 50 mcg Documented by: Diphenhydramine HCl (Benadryl) 25 mg PO BEDTIME PRN PRN Reason: Sleep Last Admin: 09/17/19 23:55 Dose: 25 mg Documented by: Furosemide (Lasix) 40 mg PO DAILY PRN PRN Reason: Edema Ibuprofen (Motrin) 200 mg PO Q6H [facility] Last Admin: 09/18/19 09:54 Dose: 200 mg Documented by: Mirtazapine (Remeron) 30 mg PO BEDTIME [facility] Last Admin: 09/17/19 21:39 Dose: 30 mg Documented by: Multivitamins/Minerals/Vitamin C (Tab-A-William) 1 tab PO DAILY [facility] Last Admin: 09/18/19 08:45 Dose: 1 tab Documented by: Pantoprazole Sodium (Protonix) 40 mg PO DAILY@0600 [facility] Last Admin: 09/18/19 07:27 Dose: 40 mg Documented by: Rivaroxaban (Xarelto) 20 mg PO WITHDINNER [facility] Last Admin: 09/17/19 17:43 Dose: 20 mg Documented by: Senna/Docusate Sodium (Senna Plus) 3 tab PO BEDTIME [facility] Last Admin: 09/17/19 21:39 Dose: 3 tab Documented by: Discontinued Medications Carbidopa/Levodopa (Sinemet Cr 50-200 Mg) 1 tab PO ASDIRECTED PRN PRN Reason: PARKINSONS - Exam General: Alert, Oriented, Cooperative, No Acute Distress Lungs: Clear to Auscultation, Normal Respiratory Effort Cardiovascular: Regular Rate, Regular Rhythm GI/Abdominal Exam: Normal Bowel Sounds, Soft, Non-Tender, No Distention Extremities: No Pedal Edema Peripheral Pulses: 2+: Radial (L), Radial (R) Skin: Warm, Dry, Intact Psy/Mental Status: Other (tremors stable today.) Sepsis Event Note - Evaluation Sepsis Screening Result: No Definite Risk - Focused Exam Vital Signs: Vital Signs Temp Pulse Resp BP Pulse Ox 09/18/19 11:34 132/67 09/18/19 08:00 97.8 F 68 18 147/101 H 100 Date Exam was Performed: 09/18/19 Time Exam was Performed: 11:35 - Problem List & Annotations (1) Unable to walk SNOMED Code(s): 194144814 Code(s): R26.2 - DIFFICULTY IN WALKING, NOT ELSEWHERE CLASSIFIED Status: Acute Current Visit: No (2) Weakness SNOMED Code(s): 33436948 Code(s): R53.1 - WEAKNESS Status: Acute Current Visit: No (3) Parkinson disease SNOMED Code(s): 72126726 Code(s): G20 - PARKINSON'S DISEASE Status: Chronic Current Visit: No (4) MDD (major depressive disorder) SNOMED Code(s): 045142698 Code(s): F32.9 - MAJOR DEPRESSIVE DISORDER, SINGLE EPISODE, UNSPECIFIED Status: Chronic Current Visit: No (5) CKD (chronic kidney disease) SNOMED Code(s): 198269510 Code(s): N18.9 - CHRONIC KIDNEY DISEASE, UNSPECIFIED Status: Chronic Current Visit: No Qualifiers: Chronic kidney disease stage: stage 3 (moderate) Qualified Code(s): N18.3 - Chronic kidney disease, stage 3 (moderate) (6) Factor 5 Leiden mutation, heterozygous SNOMED Code(s): 902717767 Code(s): D68.51 - ACTIVATED PROTEIN C RESISTANCE Status: Chronic Current Visit: No (7) Anxiety SNOMED Code(s): 52208415 Code(s): F41.9 - ANXIETY DISORDER, UNSPECIFIED Status: Chronic Current Visit: No (8) GERD (gastroesophageal reflux disease) SNOMED Code(s): 131150812 Code(s): K21.9 - GASTRO-ESOPHAGEAL REFLUX DISEASE WITHOUT ESOPHAGITIS Status: Chronic Current Visit: No (9) Cogwheel rigidity SNOMED Code(s): 74401478 Code(s): R29.898 - OT SYMPTOMS AND SIGNS INVOLVING THE MUSCULOSKELETAL SYSTEM Status: Chronic Current Visit: No (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 Weakness, unable to walk: PT/OT services. 2. Parkinson: continue Sinemet 25/100 mg 1/2 tab at 0600, 0900 & 1500; Sinemet 50/200 mg at bedtime and midnight. 3. Depression: Dr Fernandez virtual appt Sep 27 at 1115, Mirtazapine 30 mg at bedtime. 4. Constipation: Senna 3 tab at bedtime. 5. DVT prophylaxis: Jose PEÑA, Xarelto 20 mg at dinner. 6. Care conference today at 1300. 7. Had elevated blood pressure reading this morning, has had normal/low readings on acute admission as well as in swing bed, will monitor and if needed start BP med.
[2019-09-18] MEDS: Carbidopa/Levodopa 50-200 MG Tab.ER PO SCH ×2 (21:02→23:49)
[2019-09-18] MEDS: Mirtazapine 30 MG Tab PO SCH (21:03)
[2019-09-19] MEDS: Ibuprofen 200 MG Tab PO SCH ×4 (05:06→21:24)
[2019-09-19] MEDS: Carbidopa/Levodopa 25-100 MG Tab PO SCH ×3 (05:07→14:56)
[2019-09-19] MEDS: Pantoprazole 40 MG Tab.CR PO SCH (05:07)
[2019-09-19] MEDS: Acetaminophen 500 MG Tab PO SCH ×4 (05:07→21:24)
[2019-09-19] MEDS: Calcium Carbonate 500 MG Tablet PO SCH ×2 (08:21→21:24)
[2019-09-19] MEDS: Multivitamin Tab PO SCH (08:21)
[2019-09-19] MEDS: Cholecalciferol (Vitamin D3) 25 MCG Tab PO SCH (08:21)
[2019-09-19] MEDS: Mirtazapine 30 MG Tab PO SCH (21:24)
[2019-09-19] MEDS: Carbidopa/Levodopa 50-200 MG Tab.ER PO SCH (21:24)
[2019-09-20] MEDS: Carbidopa/Levodopa 50-200 MG Tab.ER PO SCH ×2 (00:35→21:18)
[2019-09-20] MEDS: diphenhydrAMINE 25 MG Cap PO PRN (00:41)
[2019-09-20] MEDS: Ibuprofen 200 MG Tab PO SCH ×4 (04:15→21:18)
[2019-09-20] MEDS: Acetaminophen 500 MG Tab PO SCH ×2 (04:15→09:23)
[2019-09-20] MEDS: Pantoprazole 40 MG Tab.CR PO SCH (06:30)
[2019-09-20] MEDS: Carbidopa/Levodopa 25-100 MG Tab PO SCH ×3 (06:34→14:41)
[2019-09-20] MEDS: Calcium Carbonate 500 MG Tablet PO SCH ×2 (08:25→21:18)
[2019-09-20] MEDS: Multivitamin Tab PO SCH (08:25)
[2019-09-20] MEDS: Cholecalciferol (Vitamin D3) 25 MCG Tab PO SCH (08:26)
--- NOTE | 2019-09-20 15:57 | PCM.SN.2 ---
- Free Text/Narrative Note: Penny had video virtual visit with Dr Fernandez this afternoon, he ordered Lexapro 10 mg daily in am & keep Mirtazapine 30 mg HS. Also wants her to follow up with him in 6 weeks either by video visit or can do TelePsych visit at [facility].
[2019-09-20] MEDS ORDERED: Acetaminophen 500 MG Tab PO SCH (16:00)
[2019-09-20] MEDS: Acetaminophen 325 MG Tab PO SCH ×2 (16:37→21:40)
[2019-09-20] MEDS: Mirtazapine 30 MG Tab PO SCH (21:18)
[2019-09-21] MEDS: diphenhydrAMINE 25 MG Cap PO PRN ×2 (00:28→23:41)
[2019-09-21] MEDS: Carbidopa/Levodopa 50-200 MG Tab.ER PO SCH ×3 (00:28→23:37)
[2019-09-21] MEDS: Acetaminophen 325 MG Tab PO SCH ×4 (03:34→21:34)
[2019-09-21] MEDS: Ibuprofen 200 MG Tab PO SCH ×4 (03:35→21:32)
[2019-09-21] MEDS: Pantoprazole 40 MG Tab.CR PO SCH (06:41)
[2019-09-21] MEDS: Carbidopa/Levodopa 25-100 MG Tab PO SCH ×3 (06:41→15:06)
[2019-09-21] MEDS: Calcium Carbonate 500 MG Tablet PO SCH ×2 (08:39→21:00)
[2019-09-21] MEDS: Escitalopram 10 MG Tab PO SCH (08:39)
[2019-09-21] MEDS: Multivitamin Tab PO SCH (08:40)
[2019-09-21] MEDS: Cholecalciferol (Vitamin D3) 25 MCG Tab PO SCH (08:40)
[2019-09-21] MEDS: Mirtazapine 30 MG Tab PO SCH (21:01)
[2019-09-22] MEDS: Ibuprofen 200 MG Tab PO SCH ×4 (04:27→21:21)
[2019-09-22] MEDS: Acetaminophen 325 MG Tab PO SCH ×4 (04:28→21:31)
[2019-09-22] MEDS: Pantoprazole 40 MG Tab.CR PO SCH (05:02)
[2019-09-22] MEDS: Carbidopa/Levodopa 25-100 MG Tab PO SCH ×3 (05:53→15:17)
[2019-09-22] MEDS: Cholecalciferol (Vitamin D3) 25 MCG Tab PO SCH (08:31)
[2019-09-22] MEDS: Escitalopram 10 MG Tab PO SCH (08:31)
[2019-09-22] MEDS: Multivitamin Tab PO SCH (08:31)
[2019-09-22] MEDS: Calcium Carbonate 500 MG Tablet PO SCH ×2 (08:31→21:19)
[2019-09-22] MEDS: Mirtazapine 30 MG Tab PO SCH (21:20)
[2019-09-22] MEDS: Carbidopa/Levodopa 50-200 MG Tab.ER PO SCH ×2 (21:21→23:25)
[2019-09-23] MEDS: diphenhydrAMINE 25 MG Cap PO PRN ×2 (00:10→22:02)
[2019-09-23] MEDS: Ibuprofen 200 MG Tab PO SCH ×4 (03:12→21:17)
[2019-09-23] MEDS: Acetaminophen 325 MG Tab PO SCH ×4 (03:44→22:01)
[2019-09-23] MEDS: Pantoprazole 40 MG Tab.CR PO SCH (05:01)
[2019-09-23] MEDS: Carbidopa/Levodopa 25-100 MG Tab PO SCH ×3 (05:42→15:40)
[2019-09-23] MEDS: Escitalopram 10 MG Tab PO SCH (10:03)
[2019-09-23] MEDS: Calcium Carbonate 500 MG Tablet PO SCH ×2 (10:03→21:17)
[2019-09-23] MEDS: Cholecalciferol (Vitamin D3) 25 MCG Tab PO SCH (10:06)
[2019-09-23] MEDS: Multivitamin Tab PO SCH (10:07)
[2019-09-23] MEDS: Mirtazapine 30 MG Tab PO SCH (21:18)
[2019-09-23] MEDS: Carbidopa/Levodopa 50-200 MG Tab.ER PO SCH (21:19)
[2019-09-24] MEDS: Carbidopa/Levodopa 50-200 MG Tab.ER PO SCH ×3 (00:34→23:35)
[2019-09-24] MEDS: Ibuprofen 200 MG Tab PO SCH ×4 (03:06→21:02)
[2019-09-24] MEDS: Acetaminophen 325 MG Tab PO SCH ×4 (03:42→22:19)
[2019-09-24] MEDS: Carbidopa/Levodopa 25-100 MG Tab PO SCH ×3 (06:13→16:28)
[2019-09-24] MEDS: Pantoprazole 40 MG Tab.CR PO SCH (06:13)
[2019-09-24] MEDS: Multivitamin Tab PO SCH (08:26)
[2019-09-24] MEDS: Cholecalciferol (Vitamin D3) 25 MCG Tab PO SCH (08:27)
[2019-09-24] MEDS: Calcium Carbonate 500 MG Tablet PO SCH ×2 (08:27→20:57)
[2019-09-24] MEDS: Escitalopram 10 MG Tab PO SCH (08:28)
[2019-09-24] MEDS: Mirtazapine 30 MG Tab PO SCH (20:57)
[2019-09-24] MEDS: diphenhydrAMINE 25 MG Cap PO PRN (22:33)
[2019-09-25] MEDS: Acetaminophen 325 MG Tab PO SCH ×4 (03:34→22:37)
[2019-09-25] MEDS: Ibuprofen 200 MG Tab PO SCH ×4 (03:34→21:27)
[2019-09-25] MEDS: Pantoprazole 40 MG Tab.CR PO SCH (05:01)
[2019-09-25] MEDS: Carbidopa/Levodopa 25-100 MG Tab PO SCH ×3 (05:02→15:30)
[2019-09-25] MEDS: Calcium Carbonate 500 MG Tablet PO SCH ×2 (09:13→21:27)
[2019-09-25] MEDS: Escitalopram 10 MG Tab PO SCH (09:13)
[2019-09-25] MEDS: Cholecalciferol (Vitamin D3) 25 MCG Tab PO SCH (09:13)
[2019-09-25] MEDS: Multivitamin Tab PO SCH (09:13)
[2019-09-25] MEDS: Carbidopa/Levodopa 50-200 MG Tab.ER PO SCH ×2 (21:27→23:03)
[2019-09-25] MEDS: Mirtazapine 30 MG Tab PO SCH (21:28)
[2019-09-25] MEDS: diphenhydrAMINE 25 MG Cap PO PRN (22:37)
[2019-09-26] MEDS: Ibuprofen 200 MG Tab PO SCH ×4 (04:54→21:04)
[2019-09-26] MEDS: Acetaminophen 325 MG Tab PO SCH ×4 (04:55→23:04)
[2019-09-26] MEDS: Pantoprazole 40 MG Tab.CR PO SCH (04:59)
[2019-09-26] MEDS: Carbidopa/Levodopa 25-100 MG Tab PO SCH ×3 (05:01→14:10)
[2019-09-26] MEDS: Multivitamin Tab PO SCH (10:04)
[2019-09-26] MEDS: Escitalopram 10 MG Tab PO SCH (10:04)
[2019-09-26] MEDS: Cholecalciferol (Vitamin D3) 25 MCG Tab PO SCH (10:05)
[2019-09-26] MEDS: Calcium Carbonate 500 MG Tablet PO SCH ×2 (10:07→20:45)
[2019-09-26] MEDS: Mirtazapine 30 MG Tab PO SCH (20:45)
[2019-09-26] MEDS: Carbidopa/Levodopa 50-200 MG Tab.ER PO SCH ×2 (20:46→23:10)
[2019-09-27] MEDS: Pantoprazole 40 MG Tab.CR PO SCH (05:37)
[2019-09-27] MEDS: Acetaminophen 325 MG Tab PO SCH ×4 (05:38→21:43)
[2019-09-27] MEDS: Carbidopa/Levodopa 25-100 MG Tab PO SCH ×3 (05:38→15:25)
[2019-09-27] MEDS: Ibuprofen 200 MG Tab PO SCH ×4 (05:39→21:43)
[2019-09-27] MEDS: Calcium Carbonate 500 MG Tablet PO SCH ×2 (08:13→20:09)
[2019-09-27] MEDS: Escitalopram 10 MG Tab PO SCH (08:13)
[2019-09-27] MEDS: Multivitamin Tab PO SCH (08:13)
[2019-09-27] MEDS: Cholecalciferol (Vitamin D3) 25 MCG Tab PO SCH (08:14)
[2019-09-27] MEDS: Mirtazapine 30 MG Tab PO SCH (20:09)
[2019-09-27] MEDS: Carbidopa/Levodopa 50-200 MG Tab.ER PO SCH (20:10)
[2019-09-28] MEDS: Carbidopa/Levodopa 50-200 MG Tab.ER PO SCH ×2 (02:45→20:58)
[2019-09-28] MEDS: Acetaminophen 325 MG Tab PO SCH ×4 (03:05→21:00)
[2019-09-28] MEDS: Ibuprofen 200 MG Tab PO SCH ×4 (03:05→21:01)
[2019-09-28] MEDS: Pantoprazole 40 MG Tab.CR PO SCH (05:49)
[2019-09-28] MEDS: Carbidopa/Levodopa 25-100 MG Tab PO SCH ×3 (05:49→15:41)
[2019-09-28] MEDS: Escitalopram 10 MG Tab PO SCH (08:35)
[2019-09-28] MEDS: Calcium Carbonate 500 MG Tablet PO SCH ×2 (08:35→20:58)
[2019-09-28] MEDS: Cholecalciferol (Vitamin D3) 25 MCG Tab PO SCH (08:36)
[2019-09-28] MEDS: Multivitamin Tab PO SCH (08:36)
[2019-09-28] MEDS: Mirtazapine 30 MG Tab PO SCH (20:58)
[2019-09-29] MEDS: diphenhydrAMINE 25 MG Cap PO PRN (00:27)
[2019-09-29] MEDS: Carbidopa/Levodopa 50-200 MG Tab.ER PO SCH ×2 (00:27→21:09)
[2019-09-29] MEDS: Ibuprofen 200 MG Tab PO SCH ×4 (03:00→22:19)
[2019-09-29] MEDS: Acetaminophen 325 MG Tab PO SCH ×4 (03:00→22:19)
[2019-09-29] MEDS: Pantoprazole 40 MG Tab.CR PO SCH (05:50)
[2019-09-29] MEDS: Carbidopa/Levodopa 25-100 MG Tab PO SCH ×3 (05:51→15:07)
[2019-09-29] MEDS: Multivitamin Tab PO SCH (08:34)
[2019-09-29] MEDS: Escitalopram 10 MG Tab PO SCH (08:34)
[2019-09-29] MEDS: Calcium Carbonate 500 MG Tablet PO SCH ×2 (08:35→21:07)
[2019-09-29] MEDS: Cholecalciferol (Vitamin D3) 25 MCG Tab PO SCH (08:35)
[2019-09-29] MEDS: Mirtazapine 30 MG Tab PO SCH (21:08)
[2019-09-30] MEDS: Carbidopa/Levodopa 50-200 MG Tab.ER PO SCH ×2 (01:22→21:09)
[2019-09-30] MEDS: Acetaminophen 325 MG Tab PO SCH ×4 (04:16→21:44)
[2019-09-30] MEDS: Ibuprofen 200 MG Tab PO SCH ×4 (04:16→21:44)
[2019-09-30] MEDS: Pantoprazole 40 MG Tab.CR PO SCH (06:11)
[2019-09-30] MEDS: Carbidopa/Levodopa 25-100 MG Tab PO SCH ×3 (06:12→15:06)
[2019-09-30] MEDS: Escitalopram 10 MG Tab PO SCH (09:38)
[2019-09-30] MEDS: Calcium Carbonate 500 MG Tablet PO SCH ×2 (09:38→21:08)
[2019-09-30] MEDS: Multivitamin Tab PO SCH (09:42)
[2019-09-30] MEDS: Cholecalciferol (Vitamin D3) 25 MCG Tab PO SCH (09:42)
[2019-09-30] MEDS: Mirtazapine 30 MG Tab PO SCH (21:08)
[2019-09-30] MEDS: diphenhydrAMINE 25 MG Cap PO PRN (22:48)
[2019-10-01] MEDS: Carbidopa/Levodopa 50-200 MG Tab.ER PO SCH ×2 (00:23→21:22)
[2019-10-01] MEDS: Acetaminophen 325 MG Tab PO SCH ×4 (04:56→21:45)
[2019-10-01] MEDS: Ibuprofen 200 MG Tab PO SCH ×4 (04:56→21:45)
[2019-10-01] MEDS: Pantoprazole 40 MG Tab.CR PO SCH (06:23)
[2019-10-01] MEDS: Carbidopa/Levodopa 25-100 MG Tab PO SCH ×3 (06:24→15:48)
--- NOTE | 2019-10-01 08:25 | PCM.PN ---
- General Info Date of Service: 10/01/19 Admission Dx/Problem (Free Text): Patient states she still has tremors and doesn't think titrating the Sinemet is helping all that much. She still some depression and anxiety. It's has improved on the Lexapro and mirtazapine. So of sleep disturbances. Denies suicidal ideation, clusters or memory process. She says it all helps a little bit but doesn't fully take it away. - Patient Data Vitals - Most Recent: Last Vital Signs Temp 97.6 F 09/30/19 06:33 Pulse 60 09/30/19 06:33 Resp 16 09/30/19 06:33 BP 131/94 H 09/29/19 08:00 Pulse Ox 95 09/30/19 06:33 Weight - Most Recent: 192 lb 4 oz Med Orders - Current: Current Medications Acetaminophen (Tylenol) 650 mg PO Q6H [facility] Last Admin: 10/01/19 04:56 Dose: 650 mg Documented by: Calcium Carbonate/Glycine (Oyster Shell Calcium) 500 mg PO BID [facility] Last Admin: 09/30/19 21:08 Dose: 500 mg Documented by: Carbidopa/Levodopa (Sinemet Cr 50-200 Mg) 1 tab PO BEDTIME [facility] Last Admin: 09/30/19 21:09 Dose: 1 tab Documented by: Carbidopa/Levodopa (Sinemet Cr 50-200 Mg) 1 tab PO DAILY@0000 [facility] Last Admin: 10/01/19 00:23 Dose: 1 tab Documented by: Carbidopa/Levodopa (Sinemet 25-100 Mg) 1.5 tab PO TID@0600,0900,1500 [facility] Stop: 10/03/19 15:01 Last Admin: 10/01/19 06:24 Dose: 1.5 tab Documented by: Carbidopa/Levodopa (Sinemet 25-100 Mg) 2 tab PO TID@0600,0900,1500 [facility] Cholecalciferol (Vitamin D3) 50 mcg PO DAILY [facility] Last Admin: 09/30/19 09:42 Dose: 50 mcg Documented by: Diphenhydramine HCl (Benadryl) 25 mg PO BEDTIME PRN PRN Reason: Sleep Last Admin: 09/30/19 22:48 Dose: 25 mg Documented by: Escitalopram Oxalate (Lexapro) 10 mg PO DAILY [facility] Last Admin: 09/30/19 09:38 Dose: 10 mg Documented by: Furosemide (Lasix) 40 mg PO DAILY PRN PRN Reason: Edema Ibuprofen (Motrin) 200 mg PO Q6H [facility] Last Admin: 10/01/19 04:56 Dose: 200 mg Documented by: Mirtazapine (Remeron) 30 mg PO BEDTIME [facility] Last Admin: 09/30/19 21:08 Dose: 30 mg Documented by: Multivitamins/Minerals/Vitamin C (Tab-A-William) 1 tab PO DAILY [facility] Last Admin: 09/30/19 09:42 Dose: 1 tab Documented by: Pantoprazole Sodium (Protonix) 40 mg PO DAILY@0600 [facility] Last Admin: 10/01/19 06:23 Dose: 40 mg Documented by: Rivaroxaban (Xarelto) 20 mg PO WITHDINNER [facility] Last Admin: 09/30/19 18:38 Dose: 20 mg Documented by: Senna/Docusate Sodium (Senna Plus) 3 tab PO BEDTIME [facility] Last Admin: 09/30/19 21:08 Dose: 3 tab Documented by: Discontinued Medications Acetaminophen (Tylenol Extra Strength) 500 mg PO Q6H [facility] Last Admin: 09/20/19 09:23 Dose: 500 mg Documented by: Acetaminophen (Tylenol Extra Strength) 650 mg PO Q6H [facility] Last Admin: 09/20/19 16:38 Dose: 650 mg Documented by: Acetaminophen (Tylenol) 650 mg PO Q6H [facility] Last Admin: 09/27/19 21:43 Dose: 650 mg Documented by: Carbidopa/Levodopa (Sinemet 25-100 Mg) 0.5 tab PO TID@0600,0900,1500 [facility] Stop: 09/19/19 15:30 Last Admin: 09/19/19 14:56 Dose: 0.5 tab Documented by: Carbidopa/Levodopa (Sinemet Cr 50-200 Mg) 1 tab PO ASDIRECTED PRN PRN Reason: PARKINSONS Carbidopa/Levodopa (Sinemet 25-100 Mg) 1 tab PO TID@0600,0900,1500 [facility] Stop: 09/26/19 15:01 Last Admin: 09/26/19 14:10 Dose: 1 tab Documented by: - Exam General: Alert, Oriented, Cooperative Lungs: Clear to Auscultation, Normal Respiratory Effort Cardiovascular: Regular Rate, Regular Rhythm, No Murmurs Neurological: Other (Right hand) Psy/Mental Status: Alert, Normal Affect, Normal Mood. No: Labile Mood, Anxious, Depressed, Agitated, Suicidal Ideation, Homicidal Ideation Sepsis Event Note - Evaluation Sepsis Screening Result: No Definite Risk - Problem List & Annotations (1) Ambulatory dysfunction SNOMED Code(s): 698041340 Code(s): R26.2 - DIFFICULTY IN WALKING, NOT ELSEWHERE CLASSIFIED Status: Acute Current Visit: No (2) Unable to walk SNOMED Code(s): 115036172 Code(s): R26.2 - DIFFICULTY IN WALKING, NOT ELSEWHERE CLASSIFIED Status: Acute Current Visit: No (3) Weakness SNOMED Code(s): 40121869 Code(s): R53.1 - WEAKNESS Status: Acute Current Visit: No (4) Anxiety SNOMED Code(s): 09295960 Code(s): F41.9 - ANXIETY DISORDER, UNSPECIFIED Status: Chronic Current Visit: No (5) CKD (chronic kidney disease) SNOMED Code(s): 025053594 Code(s): N18.9 - CHRONIC KIDNEY DISEASE, UNSPECIFIED Status: Chronic Current Visit: No Qualifiers: Chronic kidney disease stage: stage 3 (moderate) Qualified Code(s): N18.3 - Chronic kidney disease, stage 3 (moderate) (6) Cogwheel rigidity SNOMED Code(s): 27020787 Code(s): R29.898 - OTH SYMPTOMS AND SIGNS INVOLVING THE MUSCULOSKELETAL SYSTEM Status: Chronic Current Visit: No (7) Factor 5 Leiden mutation, heterozygous SNOMED Code(s): 705486143 Code(s): D68.51 - ACTIVATED PROTEIN C RESISTANCE Status: Chronic Current Visit: No (8) MDD (major depressive disorder) SNOMED Code(s): 291255374 Code(s): F32.9 - MAJOR DEPRESSIVE DISORDER, SINGLE EPISODE, UNSPECIFIED Status: Chronic Current Visit: No (9) Parkinson disease SNOMED Code(s): 74530697 Code(s): G20 - PARKINSON'S DISEASE Status: Chronic Current Visit: No (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 Continue titrating up the Sinemet 2. Continue to wait for the SSRI to have a more of an effect. 3. Continue current care at PT/OT
[2019-10-01] MEDS: Calcium Carbonate 500 MG Tablet PO SCH ×2 (08:41→21:21)
[2019-10-01] MEDS: Cholecalciferol (Vitamin D3) 25 MCG Tab PO SCH (08:41)
[2019-10-01] MEDS: Multivitamin Tab PO SCH (08:41)
[2019-10-01] MEDS: Escitalopram 10 MG Tab PO SCH (08:41)
[2019-10-01] MEDS: Mirtazapine 30 MG Tab PO SCH (21:21)
[2019-10-02] MEDS: Carbidopa/Levodopa 50-200 MG Tab.ER PO SCH ×3 (01:03→23:05)
[2019-10-02] MEDS: Ibuprofen 200 MG Tab PO SCH ×4 (04:48→21:31)
[2019-10-02] MEDS: Acetaminophen 325 MG Tab PO SCH ×4 (04:50→21:32)
[2019-10-02] MEDS: Pantoprazole 40 MG Tab.CR PO SCH (06:30)
[2019-10-02] MEDS: Carbidopa/Levodopa 25-100 MG Tab PO SCH ×3 (06:30→15:16)
[2019-10-02] MEDS: Escitalopram 10 MG Tab PO SCH (09:39)
[2019-10-02] MEDS: Calcium Carbonate 500 MG Tablet PO SCH ×2 (09:39→21:15)
[2019-10-02] MEDS: Cholecalciferol (Vitamin D3) 25 MCG Tab PO SCH (09:39)
[2019-10-02] MEDS: Multivitamin Tab PO SCH (09:39)
[2019-10-02] MEDS: Mirtazapine 30 MG Tab PO SCH (21:16)
[2019-10-02] MEDS: diphenhydrAMINE 25 MG Cap PO PRN (22:53)
[2019-10-03] MEDS: Acetaminophen 325 MG Tab PO SCH ×4 (04:45→21:01)
[2019-10-03] MEDS: Ibuprofen 200 MG Tab PO SCH ×4 (04:45→21:01)
[2019-10-03] MEDS: Pantoprazole 40 MG Tab.CR PO SCH (05:29)
[2019-10-03] MEDS: Carbidopa/Levodopa 25-100 MG Tab PO SCH ×3 (05:52→14:55)
[2019-10-03] MEDS: Escitalopram 10 MG Tab PO SCH (08:51)
[2019-10-03] MEDS: Calcium Carbonate 500 MG Tablet PO SCH ×2 (08:51→20:54)
[2019-10-03] MEDS: Multivitamin Tab PO SCH (08:52)
[2019-10-03] MEDS: Cholecalciferol (Vitamin D3) 25 MCG Tab PO SCH (08:52)
[2019-10-03] MEDS: Carbidopa/Levodopa 50-200 MG Tab.ER PO SCH ×2 (20:55→23:00)
[2019-10-03] MEDS: Mirtazapine 30 MG Tab PO SCH (20:55)
[2019-10-04] MEDS: Ibuprofen 200 MG Tab PO SCH ×4 (03:01→21:01)
[2019-10-04] MEDS: Acetaminophen 325 MG Tab PO SCH ×4 (03:02→21:02)
[2019-10-04] MEDS: Pantoprazole 40 MG Tab.CR PO SCH (05:16)
[2019-10-04] MEDS: Carbidopa/Levodopa 25-100 MG Tab PO SCH ×3 (05:17→14:51)
[2019-10-04] MEDS: Calcium Carbonate 500 MG Tablet PO SCH ×2 (08:48→20:56)
[2019-10-04] MEDS: Cholecalciferol (Vitamin D3) 25 MCG Tab PO SCH (08:48)
[2019-10-04] MEDS: Escitalopram 10 MG Tab PO SCH (08:48)
[2019-10-04] MEDS: Multivitamin Tab PO SCH (08:48)
[2019-10-04] MEDS: Carbidopa/Levodopa 50-200 MG Tab.ER PO SCH ×2 (20:57→23:44)
[2019-10-04] MEDS: Mirtazapine 30 MG Tab PO SCH (20:57)
[2019-10-04] MEDS: diphenhydrAMINE 25 MG Cap PO PRN (23:45)
[2019-10-05] MEDS: Ibuprofen 200 MG Tab PO SCH ×2 (03:04→10:54)
[2019-10-05] MEDS: Acetaminophen 325 MG Tab PO SCH ×2 (03:05→10:54)
[2019-10-05] MEDS: Pantoprazole 40 MG Tab.CR PO SCH (05:18)
[2019-10-05] MEDS: Carbidopa/Levodopa 25-100 MG Tab PO SCH ×2 (05:19→08:49)
--- NOTE | 2019-10-05 08:05 | PCM.PN ---
- General Info Date of Service: 10/05/19 Admission Dx/Problem (Free Text): Patient states she's doing well. Still getting stronger. Psychologically she says she's better with less depression and anxiety. - Patient Data Vitals - Most Recent: Last Vital Signs Temp 98.1 F 10/04/19 08:00 Pulse 82 10/04/19 08:00 Resp 18 10/04/19 08:00 BP 125/87 10/04/19 08:00 Pulse Ox 97 10/04/19 08:00 Weight - Most Recent: 192 lb 4 oz Med Orders - Current: Current Medications Acetaminophen (Tylenol) 650 mg PO Q6H [facility] Last Admin: 10/05/19 03:05 Dose: 650 mg Documented by: Calcium Carbonate/Glycine (Oyster Shell Calcium) 500 mg PO BID [facility] Last Admin: 10/04/19 20:56 Dose: 500 mg Documented by: Carbidopa/Levodopa (Sinemet Cr 50-200 Mg) 1 tab PO BEDTIME [facility] Last Admin: 10/04/19 20:57 Dose: 1 tab Documented by: Carbidopa/Levodopa (Sinemet Cr 50-200 Mg) 1 tab PO DAILY@0000 [facility] Last Admin: 10/04/19 23:44 Dose: 1 tab Documented by: Carbidopa/Levodopa (Sinemet 25-100 Mg) 2 tab PO TID@0600,0900,1500 [facility] Last Admin: 10/05/19 05:19 Dose: 2 tab Documented by: Cholecalciferol (Vitamin D3) 50 mcg PO DAILY [facility] Last Admin: 10/04/19 08:48 Dose: 50 mcg Documented by: Diphenhydramine HCl (Benadryl) 25 mg PO BEDTIME PRN PRN Reason: Sleep Last Admin: 10/04/19 23:45 Dose: 25 mg Documented by: Escitalopram Oxalate (Lexapro) 10 mg PO DAILY [facility] Last Admin: 10/04/19 08:48 Dose: 10 mg Documented by: Furosemide (Lasix) 40 mg PO DAILY PRN PRN Reason: Edema Ibuprofen (Motrin) 200 mg PO Q6H [facility] Last Admin: 10/05/19 03:04 Dose: 200 mg Documented by: Mirtazapine (Remeron) 30 mg PO BEDTIME [facility] Last Admin: 10/04/19 20:57 Dose: 30 mg Documented by: Multivitamins/Minerals/Vitamin C (Tab-A-William) 1 tab PO DAILY [facility] Last Admin: 10/04/19 08:48 Dose: 1 tab Documented by: Pantoprazole Sodium (Protonix) 40 mg PO DAILY@0600 [facility] Last Admin: 10/05/19 05:18 Dose: 40 mg Documented by: Rivaroxaban (Xarelto) 20 mg PO WITHDINNER [facility] Last Admin: 10/04/19 17:53 Dose: 20 mg Documented by: Senna/Docusate Sodium (Senna Plus) 3 tab PO BEDTIME [facility] Last Admin: 10/04/19 20:57 Dose: 3 tab Documented by: Discontinued Medications Acetaminophen (Tylenol Extra Strength) 500 mg PO Q6H [facility] Last Admin: 09/20/19 09:23 Dose: 500 mg Documented by: Acetaminophen (Tylenol Extra Strength) 650 mg PO Q6H [facility] Last Admin: 09/20/19 16:38 Dose: 650 mg Documented by: Acetaminophen (Tylenol) 650 mg PO Q6H [facility] Last Admin: 09/27/19 21:43 Dose: 650 mg Documented by: Carbidopa/Levodopa (Sinemet 25-100 Mg) 0.5 tab PO TID@0600,0900,1500 [facility] Stop: 09/19/19 15:30 Last Admin: 09/19/19 14:56 Dose: 0.5 tab Documented by: Carbidopa/Levodopa (Sinemet Cr 50-200 Mg) 1 tab PO ASDIRECTED PRN PRN Reason: PARKINSONS Carbidopa/Levodopa (Sinemet 25-100 Mg) 1 tab PO TID@0600,0900,1500 [facility] Stop: 09/26/19 15:01 Last Admin: 09/26/19 14:10 Dose: 1 tab Documented by: Carbidopa/Levodopa (Sinemet 25-100 Mg) 1.5 tab PO TID@0600,0900,1500 [facility] Stop: 10/03/19 15:01 Last Admin: 10/03/19 14:55 Dose: 1.5 tab Documented by: - Exam General: Alert, Oriented, Cooperative Lungs: Normal Respiratory Effort Psy/Mental Status: Alert, Normal Affect, Normal Mood Sepsis Event Note - Evaluation Sepsis Screening Result: No Definite Risk - Problem List & Annotations (1) Ambulatory dysfunction SNOMED Code(s): 222937352 Code(s): R26.2 - DIFFICULTY IN WALKING, NOT ELSEWHERE CLASSIFIED Status: Acute Current Visit: No (2) Unable to walk SNOMED Code(s): 977701103 Code(s): R26.2 - DIFFICULTY IN WALKING, NOT ELSEWHERE CLASSIFIED Status: Acute Current Visit: No (3) Weakness SNOMED Code(s): 16140656 Code(s): R53.1 - WEAKNESS Status: Acute Current Visit: No (4) Anxiety SNOMED Code(s): 26762181 Code(s): F41.9 - ANXIETY DISORDER, UNSPECIFIED Status: Chronic Current Visit: No (5) CKD (chronic kidney disease) SNOMED Code(s): 506193850 Code(s): N18.9 - CHRONIC KIDNEY DISEASE, UNSPECIFIED Status: Chronic Current Visit: No Qualifiers: Chronic kidney disease stage: stage 3 (moderate) Qualified Code(s): N18.3 - Chronic kidney disease, stage 3 (moderate) (6) Cogwheel rigidity SNOMED Code(s): 47739397 Code(s): R29.898 - OTH SYMPTOMS AND SIGNS INVOLVING THE MUSCULOSKELETAL SYSTEM Status: Chronic Current Visit: No (7) Factor 5 Leiden mutation, heterozygous SNOMED Code(s): 561888829 Code(s): D68.51 - ACTIVATED PROTEIN C RESISTANCE Status: Chronic Current Visit: No (8) MDD (major depressive disorder) SNOMED Code(s): 727415024 Code(s): F32.9 - MAJOR DEPRESSIVE DISORDER, SINGLE EPISODE, UNSPECIFIED Status: Chronic Current Visit: No (9) Parkinson disease SNOMED Code(s): 75119287 Code(s): G20 - PARKINSON'S DISEASE Status: Chronic Current Visit: No (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 She has appointments with tele-psych and [place] and neurology in [place]. Recheck with her primary doctor Dr. Tamayo in 1 week.
--- NOTE | 2019-10-05 08:18 | PCM.DCSUM1 ---
Discharge Summary - Hospital Course Free Text/Narrative:: Hospital course-patient was titrated up on her Sinemet and placed on Lexapro. She slowly improved with increasing strength. Psychological condition improved she still is depressed and anxious but improved. media services coordinator worked with her about placement. And they decided that she would go home with her sister and have PT/OT and home health work with her. She will have an appointment with neurology coming up and Dr. Lorenzo psychiatry telemedicine as [facility]. Brief History: Acute HPI: Penny presented to ER this morning as she could not walk without assistance this morning, required her sister to help her transfer, she also had to feed her this morning. She has noticed worsening stiffness over the past 1 1/2-2 weeks since she was weaned off her TID dose of Sinemet, she still takes Sinemet 50/200 mg at 2000 and then an as needed dose between 2300 and 0300 if she is still awake. She is quite tremulous and Dr Hernandez, [facility] had weaned her dose to see if her tremors improved, they have remained the same. She was able to transfer herself to the bathroom overnight but not this morning, also usually is able to feed herself. She is incontinent of urine, so usually wears a pad, with help of her sister, she used her motorized scooter to get to the bathroom and transfer this morning to have a bowel movement. No fevers, chills, cough, shortness of breath, chest pain, abdominal pain, nausea, vomiting or diarrhea. No dysuria or frequency. No rashes. She has been more depressed lately, was on Trintellix but was not helping. She presented to [facility] on August 25, 2019 with suicidal ideation, was seen by Psychiatry and Trintellix was stopped, kept on Remeron and was due to follow up with Dr Fernandez. Spoke with Dr Vaughan [facility] cushion worker, advised to restart her Sinemet 25/100 mg IR 1/2 tab tid at 0600, 0900, 1500; she stated we should see improvement with rigidity over the next few days. She also reported that she has been on 4-5 SSRI/SNRIs in the past with Sertraline being the last one, on Seroquel in 2012, Viibryd Mar 2019, and Trintellix the latest one. Dr Vaughan stated she would leave a message for Dr Hernandez that she is an inpatient and what recommendations were given. ACUTE HOSPITAL COURSE: Penny was restarted on her Sinemet 25/100 mg 1/2 tab at 0600, 0900, 1500, making improvements with reduction of her tremors and stiffness. Making slow progress with PT/OT, recommended swing bed instead of going straight to jail. TIP done in [facility] on Wednesday came back negative. Had some constipation initially, Senna 2 tab bid, bowel movements have improved. Having generalized pain, takes Tylenol & Ibuprofen at home, was only getting Tylenol here, restarted her home dose of Ibuprofen but scheduled for today and will switch back to prn after a few days to get ahead of her pain. She forgets to ask for her overnight Sinemet 50/200 mg between 2300 and 0300, will discuss with nursing to give her reminders or may need to schedule it. Appt with Dr Fernandez with [facility] on Sep 27 at 1115, this is a virtual visit so she can do in swing bed. Insurance and screens completed and can go to swing bed today Diagnosis: Stroke: No - Discharge Data Discharge Date: 10/05/19 Discharge Disposition: Home, W Home Health Agency 06 Condition: Good - Referral to Home Health Date of Face to Face Encounter: 10/05/19 Reason for Homebound Status: Parkinson's disease very weak, depression, anxiety Primary Care Physician: Carter Tamayo MD Skilled Need: Physical therapy and occupational therapy for ADLs and strengthening, fci for medication management, make sure she is taking her medications, home safety, disease teaching and med teaching. - Discharge Diagnosis/Problem(s) (1) Ambulatory dysfunction SNOMED Code(s): 053762217 ICD Code: R26.2 - DIFFICULTY IN WALKING, NOT ELSEWHERE CLASSIFIED Status: Acute Current Visit: No (2) Unable to walk SNOMED Code(s): 646327998 ICD Code: R26.2 - DIFFICULTY IN WALKING, NOT ELSEWHERE CLASSIFIED Status: Acute Current Visit: No (3) Weakness SNOMED Code(s): 58212572 ICD Code: R53.1 - WEAKNESS Status: Acute Current Visit: No (4) Anxiety SNOMED Code(s): 27346673 ICD Code: F41.9 - ANXIETY DISORDER, UNSPECIFIED Status: Chronic Current Visit: No (5) CKD (chronic kidney disease) SNOMED Code(s): 487199976 ICD Code: N18.9 - CHRONIC KIDNEY DISEASE, UNSPECIFIED Status: Chronic Current Visit: No Qualifiers: Chronic kidney disease stage: stage 3 (moderate) Qualified Code(s): N18.3 - Chronic kidney disease, stage 3 (moderate) (6) Cogwheel rigidity SNOMED Code(s): 74354128 ICD Code: R29.898 - OTH SYMPTOMS AND SIGNS INVOLVING THE MUSCULOSKELETAL S YSTEM Status: Chronic Current Visit: No (7) Factor 5 Leiden mutation, heterozygous SNOMED Code(s): 161814801 ICD Code: D68.51 - ACTIVATED PROTEIN C RESISTANCE Status: Chronic Current Visit: No (8) MDD (major depressive disorder) SNOMED Code(s): 124385263 ICD Code: F32.9 - MAJOR DEPRESSIVE DISORDER, SINGLE EPISODE, UNSPECIFIED Status: Chronic Current Visit: No (9) Parkinson disease SNOMED Code(s): 82377515 ICD Code: G20 - PARKINSON'S DISEASE Status: Chronic Current Visit: No (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 OT Reason for Consult: ADL's This query below is only for informational purposes and is not editable. PT Evaluation and Treatment [CONS] Routine Please Evaluate and Treat. PT Reason for Consult: Ambulation This query below is only for informational purposes and is not editable. - Patient Instructions Diet: Regular Diet as Tolerated Activity: As Tolerated Driving: Do Not Drive Showering/Bathing: May Shower Other/Special Instructions: 1. Recheck with Dr. Tamayo in 1 week. 2. Recheck with psychiatry and neurology. She says appointments are made. 3. Home health with PT/OT. - Discharge Plan Prescriptions/Med Rec: Carbidopa/Levodopa [Carbidopa-Levodopa 25-100] 2 tab PO TID@0600,0900,1500 #180 tablet Escitalopram [Lexapro] 10 mg PO DAILY #30 tablet Home Medications: Home Meds Biotin 10 mg PO DAILY 02/05/17 [History] Furosemide [Lasix] 40 mg PO DAILY PRN 02/05/17 [History] Multivitamin [Daily William] 1 tab PO DAILY 02/05/17 [History] Rivaroxaban [Xarelto] 20 mg PO WITHDINNER 02/05/17 [History] Acetaminophen [Tylenol Extra Strength] 1,000 mg PO Q6H PRN 11/17/18 [History] Calcium Carb, Citrate/Vit D3 [Citracal + D ER] 1 tab PO BID 11/17/18 [History] Carbidopa/Levodopa [Sinemet CR 50-200] 1 tab PO ASDIRECTED PRN 11/17/18 [History] Carbidopa/Levodopa [Sinemet CR 50-200] 1 tab PO BEDTIME 11/17/18 [History] Dexlansoprazole [Dexilant] 60 mg PO DAILY 11/17/18 [History] Mirtazapine 30 mg PO BEDTIME 11/17/18 [History] Sennosides/Docusate Sodium [Senna-S] 3 tab PO BEDTIME 11/17/18 [History] Ascorbic Acid [Vitamin C with Ny Hips] 1,000 mg PO DAILY 09/10/19 [History] Cannabidiol (Cbd) Extract [CBD Oil] 1,500 mg PO TID PRN 09/11/19 [History] Cholecalciferol (Vitamin D3) [Vitamin D] 10,000 unit PO DAILY 09/11/19 [History] Ibuprofen 200 mg PO Q6H PRN 09/11/19 [History] diphenhydrAMINE [Benadryl] 25 mg PO BEDTIME PRN 09/11/19 [History] Carbidopa/Levodopa [Carbidopa-Levodopa 25-100] 2 tab PO TID@0600,0900,1500 #180 tablet 10/05/19 [Rx] Escitalopram [Lexapro] 10 mg PO DAILY #30 tablet 10/05/19 [Rx] Patient Handouts: Fall Prevention in Hospitals, Adult, Venous Thromboembolism Prevention - Discharge Summary/Plan Comment DC Time >30 min.: No - Patient Data Vitals - Most Recent: Last Vital Signs Temp 98.1 F 10/04/19 08:00 Pulse 82 10/04/19 08:00 Resp 18 10/04/19 08:00 BP 125/87 10/04/19 08:00 Pulse Ox 97 10/04/19 08:00 Weight - Most Recent: 192 lb 4 oz Med Orders - Current: Current Medications Acetaminophen (Tylenol) 650 mg PO Q6H [facility] Last Admin: 10/05/19 03:05 Dose: 650 mg Documented by: Calcium Carbonate/Glycine (Oyster Shell Calcium) 500 mg PO BID [facility] Last Admin: 10/04/19 20:56 Dose: 500 mg Documented by: Carbidopa/Levodopa (Sinemet Cr 50-200 Mg) 1 tab PO BEDTIME [facility] Last Admin: 10/04/19 20:57 Dose: 1 tab Documented by: Carbidopa/Levodopa (Sinemet Cr 50-200 Mg) 1 tab PO DAILY@0000 [facility] Last Admin: 10/04/19 23:44 Dose: 1 tab Documented by: Carbidopa/Levodopa (Sinemet 25-100 Mg) 2 tab PO TID@0600,0900,1500 [facility] Last Admin: 10/05/19 05:19 Dose: 2 tab Documented by: Cholecalciferol (Vitamin D3) 50 mcg PO DAILY [facility] Last Admin: 10/04/19 08:48 Dose: 50 mcg Documented by: Diphenhydramine HCl (Benadryl) 25 mg PO BEDTIME PRN PRN Reason: Sleep Last Admin: 10/04/19 23:45 Dose: 25 mg Documented by: Escitalopram Oxalate (Lexapro) 10 mg PO DAILY [facility] Last Admin: 10/04/19 08:48 Dose: 10 mg Documented by: Furosemide (Lasix) 40 mg PO DAILY PRN PRN Reason: Edema Ibuprofen (Motrin) 200 mg PO Q6H [facility] Last Admin: 10/05/19 03:04 Dose: 200 mg Documented by: Mirtazapine (Remeron) 30 mg PO BEDTIME [facility] Last Admin: 10/04/19 20:57 Dose: 30 mg Documented by: Multivitamins/Minerals/Vitamin C (Tab-A-William) 1 tab PO DAILY [facility] Last Admin: 10/04/19 08:48 Dose: 1 tab Documented by: Pantoprazole Sodium (Protonix) 40 mg PO DAILY@0600 [facility] Last Admin: 10/05/19 05:18 Dose: 40 mg Documented by: Rivaroxaban (Xarelto) 20 mg PO WITHDINNER [facility] Last Admin: 10/04/19 17:53 Dose: 20 mg Documented by: Senna/Docusate Sodium (Senna Plus) 3 tab PO BEDTIME [facility] Last Admin: 10/04/19 20:57 Dose: 3 tab Documented by: Discontinued Medications Acetaminophen (Tylenol Extra Strength) 500 mg PO Q6H [facility] Last Admin: 09/20/19 09:23 Dose: 500 mg Documented by: Acetaminophen (Tylenol Extra Strength) 650 mg PO Q6H [facility] Last Admin: 09/20/19 16:38 Dose: 650 mg Documented by: Acetaminophen (Tylenol) 650 mg PO Q6H [facility] Last Admin: 09/27/19 21:43 Dose: 650 mg Documented by: Carbidopa/Levodopa (Sinemet 25-100 Mg) 0.5 tab PO TID@0600,0900,1500 [facility] Stop: 09/19/19 15:30 Last Admin: 09/19/19 14:56 Dose: 0.5 tab Documented by: Carbidopa/Levodopa (Sinemet Cr 50-200 Mg) 1 tab PO ASDIRECTED PRN PRN Reason: PARKINSONS Carbidopa/Levodopa (Sinemet 25-100 Mg) 1 tab PO TID@0600,0900,1500 [facility] Stop: 09/26/19 15:01 Last Admin: 09/26/19 14:10 Dose: 1 tab Documented by: Carbidopa/Levodopa (Sinemet 25-100 Mg) 1.5 tab PO TID@0600,0900,1500 [facility] Stop: 10/03/19 15:01 Last Admin: 10/03/19 14:55 Dose: 1.5 tab Documented by: *Q Meaningful Use (DIS) - VTE *Q VTE Mechanical Contraindications *Q: At Risk for Falls
[2019-10-05] MEDS: Multivitamin Tab PO SCH (08:49)
[2019-10-05] MEDS: Cholecalciferol (Vitamin D3) 25 MCG Tab PO SCH (08:49)
[2019-10-05] MEDS: Escitalopram 10 MG Tab PO SCH (08:49)
[2019-10-05] MEDS: Calcium Carbonate 500 MG Tablet PO SCH (08:49)
[2019-10-05 15:37] VITALS: BP 145/95; PULSE 75
== END 2019-10-05 11:05 | disposition home health service (06) | DRG 57 ==
LOC: FB.MS 10:11
PROVIDERS: ADMIT Family Medicine; ATTEND Family Medicine
DX: G20 Parkinson's disease (principal); D68.51 Activated protein C resistance; R53.1 Weakness; R26.2 Difficulty in walking, not elsewhere classified; F41.9 Anxiety disorder, unspecified; N18.3 Chronic kidney disease, stage 3 (moderate); R29.898 Other symptoms and signs involving the musculoskeletal system; Z66 Do not resuscitate; F32.9 Major depressive disorder, single episode, unspecified; K21.9 Gastro-esophageal reflux disease without esophagitis; M19.90 Unspecified osteoarthritis, unspecified site; M54.9 Dorsalgia, unspecified; G89.29 Other chronic pain; Z96.659 Presence of unspecified artificial knee joint; K59.00 Constipation, unspecified; E66.9 Obesity, unspecified; Z88.8 Allergy status to other drugs, medicaments and biological substances; Z79.899 Other long term (current) drug therapy; Z86.73 Personal history of transient ischemic attack (TIA), and cerebral infarction without residual deficits; Z79.01 Long term (current) use of anticoagulants; Z90.710 Acquired absence of both cervix and uterus; Z68.34 Body mass index [BMI] 34.0-34.9, adult
CPT/HCPCS: 97110-GO; 97110-GP; 97116-GP; 97530-GO; 97530-GP; 97535-GO; A9270-GY

== ENCOUNTER 2020-01-08 13:36 | Emergency (ER) | payer MEDICARE, MEDICAID ==
[2020-01-08] MEDS ORDERED: Sodium Chloride 0.9% 1,000 ML IV ONE (15:16)
--- NOTE | 2020-01-08 15:28 | EDM.PDOC ---
ED HPI GENERAL MEDICAL PROBLEM - General Chief Complaint: Lower Extremity Injury/Pain Stated Complaint: KNEE Time Seen by Provider: 01/08/20 13:45 Source of Information: Reports: Patient History Limitations: Reports: No Limitations - History of Present Illness INITIAL COMMENTS - FREE TEXT/NARRATIVE: 59-year-old female who had bilateral total knee replacements on 12/11/[address] [facility]. [place] term and has been out doing home physical therapy. This morning at approximately 10 AM she was in her bed and she moved her left leg and she felt a pop in her left knee and since that time has had increased pain over the anterior medial knee with what she felt was bruising in the posterior lateral and superior knee. She states that her pain is now an 8/10 and it is normally a 3-4/10. He was seen by physical therapy this morning immediately after this occurred as she is getting home physical therapy and all and discussed her case with the orthopedic PA enterprise application analyst for the patient's orthopedist and they recommended that she come to the hospital for evaluation. She presents now to the emergency department via ambulance for evaluation of her left knee. There are no other problems. She has been breathing normally. There has been no fever or chills. No redness in the area. There are no other associated signs or symptoms. There are no other modifying factors. Onset: Today (10 AM) Duration: Constant Location: Reports: Lower Extremity, Left (Left knee) Quality: Reports: Sharp Severity: Moderate (to severe) Improves with: Reports: Rest Worsens with: Reports: Other (Palpation), Movement Context: Reports: Other (As above.) Associated Symptoms: Reports: No Other Symptoms Treatments CYTOPATHOLOGIST: Reports: Other (see below) (Nothing.) Left Knee Pain Score (Numeric/FACES): 7 - Related Data Allergies Allergy/AdvReac Type Severity Reaction Status Date / Time gabapentin Allergy Slurred Verified 09/10/19 14:44 Speech Home Meds: Home Meds Biotin 10 mg PO DAILY 02/05/17 [History] Furosemide [Lasix] 40 mg PO DAILY PRN 02/05/17 [History] Multivitamin [Daily William] 1 tab PO DAILY 02/05/17 [History] Rivaroxaban [Xarelto] 20 mg PO WITHDINNER 02/05/17 [History] Acetaminophen [Tylenol Extra Strength] 1,000 mg PO Q6H PRN 11/17/18 [History] Calcium Carb, Citrate/Vit D3 [Citracal + D ER] 1 tab PO BID 11/17/18 [History] Carbidopa/Levodopa [Sinemet CR 50-200] 1 tab PO ASDIRECTED PRN 11/17/18 [History] Carbidopa/Levodopa [Sinemet CR 50-200] 1 tab PO BEDTIME 11/17/18 [History] Dexlansoprazole [Dexilant] 60 mg PO DAILY 11/17/18 [History] Mirtazapine 30 mg PO BEDTIME 11/17/18 [History] Sennosides/Docusate Sodium [Senna-S] 3 tab PO BEDTIME 11/17/18 [History] Ascorbic Acid [Vitamin C with Ny Hips] 1,000 mg PO DAILY 09/10/19 [History] Cannabidiol (Cbd) Extract [CBD Oil] 1,500 mg PO TID PRN 09/11/19 [History] Cholecalciferol (Vitamin D3) [Vitamin D] 10,000 unit PO DAILY 09/11/19 [History] Ibuprofen 200 mg PO Q6H PRN 09/11/19 [History] diphenhydrAMINE [Benadryl] 25 mg PO BEDTIME PRN 09/11/19 [History] Carbidopa/Levodopa [Carbidopa-Levodopa 25-100] 2 tab PO TID@0600,0900,1500 #180 tablet 10/05/19 [Rx] Escitalopram [Lexapro] 10 mg PO DAILY #30 tablet 10/05/19 [Rx] Past Medical History HEENT History: Reports: Hard of Hearing, Impaired Vision Cardiovascular History: Reports: Blood Clots/VTE/DVT Gastrointestinal History: Reports: GERD Genitourinary History: Reports: Urinary Incontinence Musculoskeletal History: Reports: Arthritis, Back Pain, Chronic Neurological History: Reports: Headaches, Chronic, Parkinson's, TIA Psychiatric History: Reports: Anxiety, Depression, Suicidal Ideation Endocrine/Metabolic History: Reports: Obesity/BMI 30+ Hematologic History: Reports: Anticoagulation Therapy (On Xarelto.) - Infectious Disease History Infectious Disease History: Reports: Chicken Pox, Measles - Past Surgical History HEENT Surgical History: Reports: Adenoidectomy, Oral Surgery, Tonsillectomy GI Surgical History: Reports: Cholecystectomy, Colonoscopy Female Surgical History: Reports: Breast Biopsy, Hysterectomy Musculoskeletal Surgical History: Reports: Knee Replacement (Bilateral) Social & Family History - Tobacco Use Tobacco Use Status *Q: Never Tobacco User - Caffeine Use Caffeine Use: Reports: Coffee, Soda - Alcohol Use Alcohol Use History: Yes Alcohol Use Frequency: Socially - Recreational Drug Use Recreational Drug Use: No - Living Situation & Occupation Living situation: Reports: with Family (She lives with her sister.) Review of Systems - Review of Systems Review Of Systems: See Below Constitutional: Reports: No Symptoms Eyes: Reports: No Symptoms Ears: Reports: No Symptoms Nose: Reports: No Symptoms Mouth/Throat: Reports: No Symptoms Respiratory: Reports: No Symptoms Cardiovascular: Reports: No Symptoms GI/Abdominal: Reports: No Symptoms Genitourinary: Reports: No Symptoms Musculoskeletal: Reports: Other (Left knee pain with possible injury status post left total knee replacement) Skin: Reports: No Symptoms Neurological: Reports: No Symptoms ED EXAM, GENERAL - Physical Exam Exam: See Below Exam Limited By: No Limitations General Appearance: Alert, WD/WN, No Apparent Distress Eye Exam: Bilateral Eye: EOMI, Normal Inspection, PERRL Ears: Normal External Exam, Hearing Grossly Normal Ear Exam: Bilateral Ear: Auricle Normal Nose: Normal Inspection, Normal Mucosa, No Blood Throat/Mouth: Normal Inspection, Normal Oropharynx, Normal Voice, No Airway Compromise Head: Atraumatic, Normocephalic Neck: Normal Inspection, Supple, Non-Tender, Full Range of Motion Respiratory/Chest: No Respiratory Distress, Lungs Clear, Normal Breath Sounds, No Accessory Muscle Use, Chest Non-Tender Cardiovascular: Normal Peripheral Pulses, Regular Rate, Rhythm, No JVD Peripheral Pulses: 2+: Radial (L), Radial (R), Dorsalis Pedis (L), Dorsalis Pedis (R) GI/Abdominal: Normal Bowel Sounds, Soft, Non-Tender Back Exam: Normal Inspection Extremities: Normal Capillary Refill, Other (Swelling in both knees with right greater than left. Well-healing surgical incisions. No redness or increased warmth. No obvious deformity. No crepitus.) Neurological: Alert, Oriented, CN II-XII Intact, Normal Cognition, No Motor/Sensory Deficits Skin Exam: Warm, Dry, Intact, Normal Color, No Rash Course - Vital Signs Last Recorded V/S: Last Vital Signs Temp 36.8 C 01/08/20 14:11 Pulse 86 01/08/20 14:11 Resp 18 01/08/20 14:11 BP 123/63 01/08/20 14:11 Pulse Ox 98 01/08/20 14:11 - Orders/Labs/Meds Orders: Active Orders 24 hr Category Date Time Status Knee 1V or 2V Lt [CR] Stat Exams 01/08/20 14:01 Taken - Radiology Interpretation Free Text/Narrative:: X-ray of left knee shows postoperative changes in the left total knee arthroplasty and there is a persisting cortical thickening with associated lucency involving the lateral left tibial metaphysis suspicious for a periprosthetic fracture of the hardware appears intact. This was per the radiologist at [facility]. It was unchanged from previous on 12/11/2019. - Re-Assessments/Exams Free Text/Narrative Re-Assessment/Exam: 01/08/20 15:10: The exam of the left knee was reassuring in that there is no redness, swelling or deformity noted. She has good perfusion distally. I did call and discuss her case with CHELA Lomax who works with Dr. Farah, orthopedic surgeon who performed the procedure on the patient, and she reviewed the previous x-ray and feels that the patient can go home at this point. She is to continue with the new mobilizer's and she is to use her walker for walking and and continue transfer training during PT but no other physical therapy at this time. She has a follow-up appointment with them on 01/16/2020 and that was felt to be an appropriate follow-up. If the patient is having further problems, she should call her office to be seen sooner. Departure - Departure Time of Disposition: 15:30 Disposition: Home, Self-Care 01 Condition: Good (Stable) Clinical Impression: Strain of left knee Qualifiers: Encounter type: initial encounter Qualified Code(s): S86.912A - Strain of unspecified muscle(s) and tendon(s) at lower leg level, left leg, initial encou nter - Discharge Information Referrals: Carter Tamayo MD [Primary Care Provider] - Forms: ED Department Discharge Additional Instructions: The x-ray of your left knee today is really unchanged from an x-ray performed on 12/11/2019. Your exam is reassuring. I discussed your case with CHELA Lomax who works with your orthopedic surgeon in [place] and she also reviewed the x-ray and felt that it was okay for you to go home. You should continue to use the knee immobilizers on both legs. You should use your walker for walking. There should be a hold on any physical therapy other than transfer training until after you have followed up in clinic. Keep your follow-up appointment on 01/16/2020.if you have worsening pain, increased swelling or any other problems or concerning signs or symptoms, you should call their office to be seen sooner. Sepsis Event Note (ED) - Evaluation Sepsis Screening Result: No Definite Risk - Focused Exam Vital Signs: Vital Signs Temp Pulse Resp BP Pulse Ox 01/08/20 14:11 36.8 C 86 18 123/63 98 - My Orders Last 24 Hours: My Active Orders 01/08/20 14:01 Knee 1V or 2V Lt [CR] Stat - Assessment/Plan Last 24 Hours: My Active Orders 01/08/20 14:01 Knee 1V or 2V Lt [CR] Stat
== END 2020-01-08 16:25 | disposition home or self-care (01) ==
LOC: FB.ED 13:36
DX: S86.812A Strain of other muscle(s) and tendon(s) at lower leg level, left leg, initial encounter (principal); F41.9 Anxiety disorder, unspecified; F32.9 Major depressive disorder, single episode, unspecified; E66.9 Obesity, unspecified; G20 Parkinson's disease; K21.9 Gastro-esophageal reflux disease without esophagitis; Z79.01 Long term (current) use of anticoagulants; Z88.8 Allergy status to other drugs, medicaments and biological substances; Z90.49 Acquired absence of other specified parts of digestive tract; Z90.710 Acquired absence of both cervix and uterus; Z79.899 Other long term (current) drug therapy; X58.XXXA Exposure to other specified factors, initial encounter
CPT/HCPCS: 73560-LT; 99283